=== PATIENT | female | born 1950 | race Caucasian/White ===

== ENCOUNTER → 2018-01-10 | Day surgery (SDC) | payer OTHER ==
[2018-01-07 10:18] VITALS: Ht 167.6 cm; Wt 68.2 kg
[~2018-01-10] VITALS: Ht 167.6 cm; Wt 68.2 kg
[~2018-01-10] MED LIST: 500ML BSS 0.3ML EPI 1:1000PF IRRIG ONE; ACETAMINOPHEN 325 MG TAB PO PRN; AMVISC PLUS 0.8ML SYRINGE INT OCU ONE; ASPI81TA28 PO; ATROPINE SULFATE 0.1 MG/ML 5ML SYR IV PRN; BRIMONIDINE TART 0.2% OP SOLN PER DROP CHARGE ONE; BSS FLUSH ONE; CALC500C70 PO; ENDOCOAT 0.85ML SYRINGE INT OCU ONE; EpHEDrine SULFATE INJ 50 MG/ML AMP IV PRN; EpINEphrine INJ 1MG/ML AMP 1 MG/ML AMP ONE; FENTANYL CITRATE INJ 50 MCG/1 ML 2 ML VIAL ONE; LACTATED RINGER'S 1000ML 500 ML IV SCH; LIDOCAINE 4% OP SOLN DROP CHARGE ONE; LIDOCAINE 4% OP SOLN DROP CHARGE OPL SCH; LIDOCAINE HCL 1% MPF 2 ML VIAL ONE; LISI-788 PO; MIDAZOLAM HCL 1 MG/ML 2ML VIAL ONE; MOXIFLOXACIN OPH SOLN PER DROP CHARGE ONE; POVIDONE-IODINE OP SOLN 30 ML BTL ONE; PROPARACAINE 0.5% OP SOLN PER DROP CHARGE OPL SCH; SIMV40TA2 PO; TOBRAMYCIN/DEXAMETHASONE OPH OINT PER APPLN CHARGE ONE
[2018-01-10] MEDS: PHENYLEPHRINE HCL 2.5% OP SOLN PER DROP CHARGE OPL SCH ×2 (11:18→11:24)
[2018-01-10] MEDS: TROPICAMIDE 1% OP SOLN PER DROP CHARGE OPL SCH ×2 (11:19→11:24)
[2018-01-10] MEDS: CYCLOPENTOLATE HCL 1% OP SOLN PER DROP CHARGE OPL SCH ×2 (11:20→11:26)
[2018-01-10] MEDS: KETOROLAC 0.5% OP SOLN PER DROP CHARGE OPL SCH ×2 (11:21→11:27)
[2018-01-10] MEDS: MOXIFLOXACIN OPH SOLN PER DROP CHARGE OPL SCH ×2 (11:22→11:32)
--- NOTE | 2018-01-10 12:12 | History & Physical Bridge - [place] ---
H&P Re-Evaluation Bridge Note: I have examined the patient, reviewed the History & Physical and in the interval since the performance of the History & Physical I have noted the following changes of clinical significance: No changes noted
--- NOTE | 2018-01-10 13:01 | [facility] Operative Report ---
Operative Report Operative Date Jan 10, 2018. Pre-Operative Diagnosis Left Eye Cataract Post-Operative Diagnosis same Procedure(s) Performed Left Cataract Phacoemulsification With Intraocular Lens Implant Surgeon Dr. Pancho Wheeler Human Resources Support Specialist Surgeon(s) 0 Estimated Blood Loss 0 Findings cataract left eye Specimens none Drains None Anesthesia Type MAC Complication(s) none Disposition no Recovery Room / PACU Indications decreased vision left eye Description of Procedure After informed consent was obtained in the holding area the patient was wheeled back to the operating room where cardiac monitoring leads and oxygen by nasal cannula was administered by Anesthesia. Gentle IV sedation was given, and the patient's left eye was prepped and draped in usual sterile fashion. A wire lid speculum was placed into the left eye and the operating microscope was swung into position. Using 0.12 forceps and a Supersharp blade a paracentesis port was made 2 o'clock hours away from the 3 o'clock position of the patient's left eye. 1% non-preserved Lidocaine was then injected into the anterior chamber for anesthesia. A 2.0 mm keratotome blade was then used to make a shelved clear corneal incision at the 3 o'clock position of the left eye. Amvisc was injected into the anterior chamber and a cystotome and Utrata forceps were used to perform a curvilinear capsulorrhexis. BSS on a hydrodissection cannula was used to hydrodissect the lens nucleus away from the capsular bag. The phacoemulsification handpiece was then used in a stop and chop fashion to remove the lens nucleus. The irrigation and aspiration handpiece was then used to remove the residual cortical material. Amvisc was injected into the capsular bag and anterior chamber and a B[employer]ch [employer] Lomb MX60E 26.0 Diopter intraocular lens was injected into the capsular bag. Irrigation and aspiration handpiece was used to remove the residual viscoelastic material. The wounds were hydrated and noted to be watertight. The wire lid speculum was removed from the eye. Vigamox, Brimonidine, and TobraDex ointment were placed on the eye and it was shielded. It should be noted that EndoCoat was used extensively during the case to protect the cornea endothelium. DISPOSITION: The patient tolerated the procedure well and was wheeled to the post anesthesia care unit in stable condition. I attest to the content of the Intraoperative Record and any orders documented therein. Any exceptions are noted below. I attest to the content of the Intraoperative Record and any orders documented therein. Any exceptions are noted below.
--- NOTE | 2018-01-10 13:03 | Discharge Instructions-SurgCtr ---
Discharge Instructions Date of Service Jan 10, 2018. Visit Reason for Visit: Cataract Left Eye Discharge Discharge Diagnosis / Problem: cataract left eye Discharge Goals Goal(s): Improve function Activity Recommendations Activity Limitations: per Instructions/Follow-up section Lifting Limitations: no more than 5 pounds Anesthesia . Post Anesthesia Instructions: If you have had General Anesthesia or IV Sedation: * Do not drive today. * Resume driving when surgeon permits. * Do not make important decisions or sign legal documents today. * Call surgeon for: 1. Temperature elevations greater than 101 degrees F. 2. Uncontrollable pain. 3. Excessive bleeding. 4. Persistent nausea and vomiting. 5. Medication intolerance (nausea, vomiting or rash). * For nausea and vomiting use only clear liquids such as: tea, soda, bouillon until nausea subsides, then gradually increase diet as tolerated. * If you have any concerns or questions, call your surgeon's office. If physician is unavailable and it is an emergency, call 911 or go to the nearest emergency room. . Instructions / Follow-Up Instructions / Follow-Up ACTIVITY RECOMMENDATIONS: * Light activities * You may walk outside, read, watch television. * Mild irritation and blurred vision are common for the first few days, redness around the white part of the eye is common. MEDICATIONS: Resume previous medications unless instructed otherwise by your surgeon. Eye drops (today and tomorrow): Ofloxacin - one drop in operative eye every 2 hours while awake Prednisolone 1% - one drop in operative eye every 2 hours while awake Bromfenac - one drop in operative eye once daily SPECIAL CARE INSTRUCTIONS: * If any problems or concerns, please call Dr. Wheeler's office at . * Keep plastic shield taped over eye to sleep at night. * Keep plastic shield taped over eye except to administer eye drops. * Keep plastic shield on until office visit the following day. FOLLOW UP VISIT: Follow-up with Dr. Wheeler in the [place] office as scheduled. If not already scheduled, please call the office at . Diet Recommendations Home Diet: resume previous diet Procedures Procedures Performed: Left Cataract Phacoemulsification With Intraocular Lens Implant Pending Studies Studies pending at discharge: no Medical Emergencies . Who to Call and When: Medical Emergencies: If at any time you feel your situation is an emergency, please call 911 immediately. . Non-Emergent Contact Non-Emergency issues call your: Medical Office Technologist . . "Provider Documentation" section prepared by Blane Wheeler. .
[2018-01-10 13:22] VITALS: BP 97/64; PULSE 85; O2SAT 94
--- NOTE | 2018-01-10 13:27 | Anesthesia Progress Nt - [facility] ---
Anesthesia Post Op Note Date & Time Jan 10, 2018 at 13:27 Vital Signs Pain Intensity: 0 Vital Signs Past 12 Hours Date Time Temp Pulse Resp B/P (MAP) Pulse Ox O2 Delivery O2 Flow Rate FiO2 01/10/18 13:22 85 18 97/64 (75) 94 Room Air 01/10/18 13:04 36.9 80 16 125/78 (94) 98 Room Air 01/10/18 11:14 36.4 87 18 145/86 (105) 100 Room Air Notes Mental Status: alert / awake / arousable, participated in evaluation Pt Amnestic to Procedure: Yes Nausea / Vomiting: adequately controlled Pain: adequately controlled Airway Patency, RR, SpO2: stable & adequate BP & HR: stable & adequate Hydration State: stable & adequate Anesthetic Complications: no major complications apparent Patient feels well on discharge with no complaints. Denies any lightheaded or dizziness.
== END | disposition home or self-care (01) ==
LOC: X.SURG 11:05
PROVIDERS: ATTEND Ophthalmology
DX: H25.12 Age-related nuclear cataract, left eye (principal); I10 Essential (primary) hypertension; E78.00 Pure hypercholesterolemia, unspecified; Z79.82 Long term (current) use of aspirin; E78.5 Hyperlipidemia, unspecified; Z87.891 Personal history of nicotine dependence

== ENCOUNTER 2024-03-17 07:41 | Inpatient (IN) ==
--- NOTE | 2024-03-10 12:08 | Anesthesiology Consultation ---
Date of Service March 10, 2024 Assessment & Plan (1) Encounter for pre-operative examination: Plan - acceptable to proceed pending anesthesiologist evaluation of patient and repeat BMP am DOS. - hyponatremia 03/07/24 at 129. Case discussed with Dr. Samayoa who advised repeating BMP DOS. Fluid orders to anesthesiologist review of BMP DOS. - 3+ alcoholic drinks daily. - ER 03/07/24 [facility], [place]: "...vaginal bleeding. The patient denies having any dysuria or frequency. She denies having any back pain - Per yardmaster on 03/10/24: COVID positive 02/28/24, asymptomatic per PAT RN call. Chart Review Chart Review: Acceptable Risk for Surgery and Patient NOT seen in Pre Admission Testing History Surgery Operation Date: 03/17/24 09:15 Proposed Procedures p Hysteroscopy, - Addison Montes De Oca MD s Dilation of the Cervix and Curettage with Possible Removal of Polyp or Lesion. (Placement of a Scope and Scraping of Tissue) - Addison Montes De Oca MD Height/Weight Height: 5 ft 5 in Weight: 60.328 kg Allergies Allergy/AdvReac Type Severity Reaction Status Date / Time No Known Allergies Allergy Verified 03/10/24 11:12 Medications Home Medications Medication Instructions Recorded Confirmed Last Taken lisinopril 20 1 tab PO QPM #0 tabs 03/11/17 03/10/24 11/08/22 mg-hydrochlorothiazide 25 mg tablet simvastatin 40 mg tablet 40 mg PO QPM #0 tabs 03/11/17 03/10/24 11/08/22 ibuprofen 400 mg tablet 400 mg PO Q8H PRN Pain 02/22/24 03/10/24 Unknown gabapentin 100 mg capsule 10 mg PO UD 03/10/24 03/10/24 Unknown Past Medical History Medical History Degenerative joint disease (DJD) of lumbar spine History of COVID-19 02/28/24, asymptomatic>resolved History of pneumonia 2016, no recent issues Hx of breast cancer dx 2017, right breast mastectomy>no limb restriction Hx of recurrent urinary tract infection most recent 02/28/24, no further symptoms Hyperlipidemia Hypertension Lumbosacral spondylosis Lumbosacral spondylosis Postural dizziness hx, found to have a recent UTI 02/28/24; no current symptoms Sacroiliitis Scoliosis of lumbar region due to degenerative disease of spine in adult Spondylolisthesis, lumbar region Past Surgical History Surgical History History of bilateral tubal ligation Hx of colonoscopy Hx of eye surgery age 4 Hx of right mastectomy no limb restriction Hx of tonsillectomy Social History Smoking Status: Former smoker Do You Dip or Chew Tobacco: No Smoking End Date: age 38 Hx Alcohol Use: Yes Alcohol type: wine alcohol intake frequency: 3 or more drinks per day Hx Substance Use: Yes substance use type: former substance user and marijuana Last Used Substance Other:: in college Lab Results Anesthesia Preop Results Results Anesthesia Widget: WBC 6.51 K/ul (4.8-10.8) 03/07/24 Hgb 12.5 g/dl (12.0-16.0) 03/07/24 Hct 34.5 % (37.0-47.0) L 03/07/24 Plt 155 K/uL (130-400) 03/07/24 Na 129 mmol/L (136-145) L 03/07/24 K 3.5 mmol/L (3.5-5.1) 03/07/24 Cl 94 mmol/L (98-107) L 03/07/24 CO2 27 mmol/L (21-32) 03/07/24 BUN 9 mg/dl (6-23) 03/07/24 Creat 0.53 mg/dl (0.6-1.2) L 03/07/24 Glucose Level 119 mg/dl (70-99(Fasting)) H 03/07/24 PT 11.9 Seconds (9.0-12.0) 03/07/24 PTT 28 Seconds (21-31) 03/07/24 INR 1.1 (0.9-1.1) 03/07/24 Urine Color Yellow 02/28/24 Urine Appearance Clear (Clear) 02/28/24 Urine pH 5.5 (4.5-7.5) 02/28/24 Urine Specific [place] 1.016 (1.000-1.030) 02/28/24 Urine Protein Negative (Negative) 02/28/24 Urine Glucose (UA) Negative (Negative) 02/28/24 Urine Ketones Trace (Negative) H 02/28/24 Urine Blood Trace (Negative) H 02/28/24 Urine Nitrite Negative (Negative) 02/28/24 Urine Bilirubin Negative (Negative) 02/28/24 Urine Urobilinogen Negative (Negative) 02/28/24 Urine Leukocyte Esterase 2+ (Negative) H 02/28/24 Urine WBC (Auto) 21-50 /hpf (0-5) H 02/28/24 Urine RBC (Auto) 6-10 /hpf (0-2) H 02/28/24 Urine Hyaline Casts (Auto) 0-2 /lpf (0-2) 02/28/24 Urine Epithelial Cells (Auto) 6-10 /hpf (0-2) H 02/28/24 Urine Bacteria (Auto) 2+ (None Seen) H 02/28/24 Urine Yeast Present (None Prsent) A 02/28/24 COVID-19 PCR POSITIVE (Negative) A 02/28/24 Testing Electrocardiogram Date: 02/28/24 NSR, rate 86 bpm Chest X-Ray Date: 02/28/24 *1view* No acute cardiopulmonary findings. Numerous old, healed right-sided rib fractures.
[~2024-03-17 07:41] MED LIST changes: -500ML BSS 0.3ML EPI 1:1000PF IRRIG ONE; -ACETAMINOPHEN 325 MG TAB PO PRN; -AMVISC PLUS 0.8ML SYRINGE INT OCU ONE; -ASPI81TA28 PO; -ATROPINE SULFATE 0.1 MG/ML 5ML SYR IV PRN; -BRIMONIDINE TART 0.2% OP SOLN PER DROP CHARGE ONE; -BSS FLUSH ONE; -CALC500C70 PO; +DEXAMETHASONE SOD INJ 4 MG/ML VIAL ONE; -ENDOCOAT 0.85ML SYRINGE INT OCU ONE; -EpHEDrine SULFATE INJ 50 MG/ML AMP IV PRN; -EpINEphrine INJ 1MG/ML AMP 1 MG/ML AMP ONE; -FENTANYL CITRATE INJ 50 MCG/1 ML 2 ML VIAL ONE; -LACTATED RINGER'S 1000ML 500 ML IV SCH; +LIDOCAINE 2% 2 ML VIAL/AMP(20MG/ML) INFIL ONE; -LIDOCAINE 4% OP SOLN DROP CHARGE ONE; -LIDOCAINE 4% OP SOLN DROP CHARGE OPL SCH; -LIDOCAINE HCL 1% MPF 2 ML VIAL ONE; -LISI-788 PO; -MOXIFLOXACIN OPH SOLN PER DROP CHARGE ONE; +ONDANSETRON INJ 2 MG/ML 2 ML VIAL ONE; -POVIDONE-IODINE OP SOLN 30 ML BTL ONE; -PROPARACAINE 0.5% OP SOLN PER DROP CHARGE OPL SCH; +PROPOFOL IV EMULSION 10 MG/ML 20 ML VIAL IV ONE; -SIMV40TA2 PO; -TOBRAMYCIN/DEXAMETHASONE OPH OINT PER APPLN CHARGE ONE; +fentaNYL citrate PF 100 MCG/2 ML VIAL ONE
[2024-03-17 08:16] LABS: Hematocrit (blood only) 18.9 % (37.0-47.0); Hemoglobin 6.6 g/dl (12.0-16.0); Mean Corpuscular Hemoglobin 34.7 pg (25.0-34.0); Mean Corpuscular Hgb Conc 34.9 g/dL (32.0-36.0); Mean Corpuscular Volume 99.5 fL (80.0-100.0); Mean Platelet Volume 8.7 fL (9.4-12.4); Platelet Count 221 K/uL (130-400); RDW Coefficient of Variation 14.3 % (11.5-14.5); RDW Standard Deviation 50.5 fL (36.4-46.3); White Blood Count 10.72 K/ul (4.8-10.8)
[2024-03-17] MEDS: LACTATED RINGER'S 1,000 ML IV SCH (08:20)
[2024-03-17 08:33] LABS: BUN Creatinine Ratio 22.5 (10-20); Calcium 7.7 mg/dl (8.6-10.3); Creatinine Clr Calc Pharmacy 49.1 ml/min; Potassium 3.2 mmol/L (3.5-5.1)
[2024-03-17] MEDS: SODIUM CHLORIDE 0.9% 250 ML IV PRN (10:00)
[2024-03-17] MEDS: SODIUM CHLORIDE 0.9% 500 ML IV ONE (11:38)
--- NOTE | 2024-03-17 12:15 | Hospitalist Progress Note ---
Date of Service March 17, 2024 Subjective Attending Addendum: Case reviewed with the advanced practitioner. I have personally performed a history and physical examination on the patient. I have reviewed the advanced practitioner's documentation on the date of service referenced in note, and I agree with, and take responsibility for the plan of care. please refer to her notes for full details patient seen and examined, records reviewed by myself as well on exam, patient seen resting in bed, comfortable not in distress, smiling denies active chest pain, shortness of breath, palpitations, dizziness per RN, noted to have a soaked pad earlier no other symptoms VS noted and reviewed oriented x3, not in distress, speaks in sentences with no effort nor accessory muscle use normal rate, regular rhythm, no murmurs clear breath sounds bilaterally non distended, soft, nontender no bipedal edema, erythema, warmth no neuro deficits all labs, imaging noted and reviewed ASSESSMENT AND PLAN ACUTE BLOOD LOSS ANEMIA SECONDARY TO DYSFUNCTIONAL UTERINE BLEEDING, SECONDARY TO ENDOMETRIAL HYPERPLASIA elective hysteroscopy with polypectomy/myomectomy cancelled today due to low Hg and Na seen on pre op labs Hg 12 --> 6.6 discussed with end stapler Dr. Montes De Oca started on Norethindrone 2 days ago, bleeding although still ongoing, seems to have slowed down since as per Dr. Montes De Oca plan is to stabilize Hg and Na prior to hysteroscopy with polypectomy/myomectomy now scheduled from Wednesday hopeful that further doses of Norethindrone will continue to juma the vaginal bleeding as per Dr. Montes De Oca transfuse pRBC for goal Hg > 7 (no CAD history) anemia panel ACUTE HYPONATREMIA likely hypovolemic etiology from acute blood loss check serum osm, urine Na and Osm NSS bolus and maintenance fluids ordered hold Lisinopril/HCTZ Nephro consulted other diagnoses and plan of care as per advanced practitioner's notes Donovan Gilliland MD Results & Data Results & Data Vital Signs (Past 12 Hours) Vital Signs Temp Pulse Pulse Resp BP BP Pulse Ox 03/17/24 12:02 36.8 C 92 H 20 101/47 L 98 03/17/24 12:01 36.8 C 92 H 20 101/47 L 98 03/17/24 11:47 37 C 94 H 20 106/48 L 97 03/17/24 11:44 37 C 94 H 20 106/48 L 97 03/17/24 11:41 37 C 94 H 20 106/48 L 97 03/17/24 11:18 36.9 C 95 H 20 102/45 L 97 03/17/24 10:18 36 C L 95 H 20 113/51 L 96 03/17/24 10:18 36 C L 95 H 20 113/51 L 96 03/17/24 09:45 36.8 C 94 H 16 114/50 L 98 03/17/24 07:58 36.4 C L 99 H 20 107/56 L 94 O2 Del Method 03/17/24 12:02 03/17/24 12:01 03/17/24 11:47 03/17/24 11:44 03/17/24 11:41 03/17/24 11:18 03/17/24 10:18 03/17/24 10:18 03/17/24 09:45 03/17/24 07:58 Room Air
--- NOTE | 2024-03-17 12:42 | History & Physical Report ---
Date of Service March 17, 2024 Assessment & Plan (1) Abnormal vaginal bleeding: (2) Acute hyponatremia: (3) Hypertension: Plan Assessment and plan: Acute blood loss anemia: Suspected endometrial neoplasm: Hemoglobin 1 week ago 12.4, now 6.6 Patient reports saturating 3 thick pads daily. Reports estrogen therapy did help slow the bleeding S/p 2 units PRBC, continue IV fluids Serial H/H Hyponatremia likely hypovolemic: NA 119, was 129 on 03/07 Denies any recent nausea/vomiting/diarrhea, reports adequate oral intake Suspect hyponatremia likely secondary to hypovolemia Serial BMP, every 6, monitor closely to ensure sodium is not corrected rapidly Urine/serum Osmo/electrolytes ordered, nephrology consulted Hx HTN/HLD: -Hold lisinopril, DC HCTZ indefinitely Continue statin Hx lower back pain: Continue gabapentin Alcohol use: Reports drinking 4 glasses of wine daily, monitor for alcohol withdrawal A total of 60 minutes was spent on chart review/facilitating plan of care/discussion with consultants/reviewing medical history Patient is a DNR/DNI DVT prophylaxis: SCDs, avoid AC with anemia History of Present Illness Chief Complaint: Vaginal bleeding, postmenopausal Primary Care Provider: Kenny Pacheco DO The patient is a 73-year-old female with a past medical history of hypertension/hyperlipidemia, lower back pain who presents to the hospital on 03/17/2024 for a scheduled D&C hysteroscopy with polypectomy/myomectomy with Dr. Montes De Oca. The patient presented originally on 03/07/2024 with complaints of 1 week of very heavy bleeding. Her transvaginal ultrasound at that time showed a markedly thickened and heterogeneous endometrium with numerous cystic foci. Possible endometrial hyperplasia. At this time, endometrial biopsy was recommended to exclude underlying neoplastic process. The patient was seen by gynecology on 03/14/2024 where it was recommended for the procedure to be performed on 01/04 and a progesterone taper was prescribed to minimize bleeding while awaiting the procedure. On arrival to the hospital today, labs were remarkable for hemoglobin 6.6, hematocrit 18.9, NA 119, K3.2, chloride 88, calcium 7.7 The patient remained hemodynamically stable. She was ordered 2 units of blood and referred to hospital medicine for admission for management of hyponatremia and acute blood loss anemia Allergies Allergy/AdvReac Type Severity Reaction Status Date / Time No Known Allergies Allergy Verified 03/17/24 07:55 Home Medications Medication Instructions Recorded Confirmed Type lisinopril 20 1 tab PO QPM #0 tabs 03/11/17 03/17/24 History mg-hydrochlorothiazide 25 mg tablet simvastatin 40 mg tablet 40 mg PO QPM #0 tabs 03/11/17 03/17/24 History ibuprofen 400 mg tablet 400 mg PO Q8H PRN Pain 02/22/24 03/17/24 History norethindrone acetate 5 mg tablet 5 mg PO .COMPLEX #10 tabs 03/14/24 03/14/24 Rx gabapentin 300 mg capsule 300 mg PO HS #30 caps 03/15/24 Rx Past Med/Surg History Problem List Encounter for pre-operative examination Acute hyponatremia (Acute) 03/07/24 Abnormal vaginal bleeding (Acute) Spondylolisthesis, lumbar region Lumbosacral spondylosis Degenerative joint disease (DJD) of lumbar spine Scoliosis of lumbar region due to degenerative disease of spine in adult COVID-19 (Acute) 02/28/24 Sacroiliitis Pneumonia (Acute) 04/21/16 Cancer of central portion of right female breast (Acute) "Palpable mass found on physical examination Status post mammography and ultrasound Status post core needle biopsy 09/17/2016 Invasive carcinoma Estrogen receptor negative, progesterone receptor negative and HER-2/agustin negative. 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 ypT1c ypN0 M0 G3 " Hypertension (Chronic) Medical History Spondylolisthesis, lumbar region Scoliosis of lumbar region due to degenerative disease of spine in adult Sacroiliitis Postural dizziness hx, found to have a recent UTI 02/28/24; no current symptoms History of pneumonia 2016, no recent issues Lumbosacral spondylosis Degenerative joint disease (DJD) of lumbar spine Hx of recurrent urinary tract infection most recent 02/28/24, no further symptoms Lumbosacral spondylosis History of COVID-19 02/28/24, asymptomatic>resolved Hx of breast cancer dx 2017, right breast mastectomy>no limb restriction Hypertension Hyperlipidemia Surgical History History of bilateral tubal ligation Hx of colonoscopy Hx of eye surgery age 4 Hx of tonsillectomy Hx of right mastectomy no limb restriction Family History Family/Other Breast cancer Herself Mother Myocardial infarction Denies family history of Ovarian cancer Colorectal cancer Social History Smoking Status: Former smoker Tobacco Type: Cigarettes Second Hand Exposure: No; Do You Dip or Chew Tobacco: No; Hx Alcohol Use: Yes Alcohol type: wine Hx Substance Use: No Preferred Language: Lithuanian Communication Ability: Effective Senior Cost Accountant Required: Voice Beliefs That Will Affect Care: None Current Living Situation: Family Current Living Situation Comment: lives with sister Feels Safe at Home: Yes Assistive Devices: Cane Review of Systems Review of Systems: All systems reviewed & are unremarkable except as noted in HPI & below Physical Exam Constitutional: WD/WN, vitals as above well developed and well nourished Eyes: PERRL, conjunctivae normal, anicteric sclerae ENMT: external ear and nose normal, oropharynx normal Neck: trachea midline, no thyromegaly Respiratory: normal respiratory effort, lungs clear to auscultation Cardiovascular: RRR, no murmur, no edema Chest (Breasts): normal inspection/palpation of breasts Gastrointestinal (Abdomen): normal bowel sounds, soft, nontender, no hepatosplenomegaly Musculoskeletal: no cyanosis or clubbing, extremities motor strength 5/5 Skin: no rashes, warm and dry Neurologic: PERRL, EOMI, accommodation nl, no face palsy, no dysarthria Psychiatric: A+Ox3, euthymic affect Genitourinary: no vaginal lesions, no adnexal mass (Vaginal bleeding) Lymphatic: no cervical or axillary lymphadenopathy Results & Data Results & Data Vital Signs (Past 12 Hours) Vital Signs Temp Pulse Pulse Resp BP BP Pulse Ox 03/17/24 12:02 36.8 C 92 H 20 101/47 L 98 03/17/24 12:01 36.8 C 92 H 20 101/47 L 98 03/17/24 11:47 37 C 94 H 20 106/48 L 97 03/17/24 11:44 37 C 94 H 20 106/48 L 97 03/17/24 11:41 37 C 94 H 20 106/48 L 97 03/17/24 11:18 36.9 C 95 H 20 102/45 L 97 03/17/24 10:18 36 C L 95 H 20 113/51 L 96 03/17/24 10:18 36 C L 95 H 20 113/51 L 96 03/17/24 09:45 36.8 C 94 H 16 114/50 L 98 03/17/24 07:58 36.4 C L 99 H 20 107/56 L 94 O2 Del Method 03/17/24 12:02 03/17/24 12:01 03/17/24 11:47 03/17/24 11:44 03/17/24 11:41 03/17/24 11:18 03/17/24 10:18 03/17/24 10:18 03/17/24 09:45 03/17/24 07:58 Room Air
[2024-03-17] MEDS: POTASSIUM CHLORIDE / WTR 10 MEQ/100 ML PLCT IV SCH (13:19)
[2024-03-17] MEDS: SODIUM CHLORIDE 0.9% 500 ML IV SCH (13:21)
[2024-03-17] MEDS ORDERED: LORazepam 1 MG TAB PO PRN (13:59)
--- NOTE | 2024-03-17 14:30 | Nephrology Consultation ---
Date of Consultation March 17, 2024 Assessment & Plan (1) Acute hyponatremia: she has been on hydrochlorothiazide for many years. Although most of the time her serum sodium was within normal range there were many instances when it was somewhat low for many years. last few blood work as an outpatient has shown some drop in the serum sodium with the most recent from March 07 showing 129. hydrochlorothiazide has to be stopped and never used again. She should not be on other thiazide type diuretics. But she can be on loop diuretics if needed and sometime we absolutely need to use loop diuretics to get the sodium up. urine sodium and urine osmolarity will be significantly impaired by the hydrochlorothiazide but can still be of some value and will do urine osmolarity and urine sodium. there is 1 blood work pending at this time. This will give us an idea about how fast the sodium is correcting. will be addressing after the result of this blood test our aim is to correct about 8 mEq per day and no more than 18 mEq in 48 hours. for the initial management I would give normal saline 1000 mL and then 80 mL/hour. we also need to give blood transfusion. Volume deficit from severe bleeding can be a powerful trigger of anti-diuretic hormone release and can cause hyponatremia in susceptible patient. she is getting 2 units of blood transfusion which should help with volume management. next renal panel at 7 PM--RN to call me with results. (2) Abnormal vaginal bleeding: severe type which led to the drop of hemoglobin from 12+ to 6.6. Also associated with volume deficit History of Present Illness Reason for Consultation: Hyponatremia Attending Physician: Donovan Gilliland MD History of Present Illness 73-year-old female with known prior history of hyponatremia although mild type who was on lisinopril /hydrochlorothiazide. serum sodium has been in the low 130s occasionally for last couple of years. Most recent outpatient blood work showed sodium of 129 as of March 07. She was supposed to have elective gynecological procedure today for vaginal bleeding (hysteroscopy with polypectomy/myomectomy ) cancelled today due to low Hg and low Na seen on pre op labs. Hg 12 --> 6.6. na 119 from 129 She was ordered 2 units of blood and referred to hospital medicine for admission for management of hyponatremia and acute blood loss anemia. now getting NS. blood pressure as of now but still acceptable with a reading of 117 x 56. she is oxygenating 100% on room air. she was on lisinopril 20/hydrochlorothiazide 25 as an outpatient. her food intake was Average her liquid intake was Average review of systems positive for vaginal bleeding which has been ongoing. weakness and fatigue. otherwise 12 systems reviewed and negative Allergies Allergy/AdvReac Type Severity Reaction Status Date / Time No Known Allergies Allergy Verified 03/17/24 07:55 Home Medications Medication Instructions Recorded Confirmed Type lisinopril 20 1 tab PO QPM #0 tabs 03/11/17 03/17/24 History mg-hydrochlorothiazide 25 mg tablet simvastatin 40 mg tablet 40 mg PO QPM #0 tabs 03/11/17 03/17/24 History ibuprofen 400 mg tablet 400 mg PO Q8H PRN Pain 02/22/24 03/17/24 History norethindrone acetate 5 mg tablet 5 mg PO .COMPLEX #10 tabs 03/14/24 03/14/24 Rx gabapentin 300 mg capsule 300 mg PO HS #30 caps 03/15/24 Rx Patient History Medical History Spondylolisthesis, lumbar region Scoliosis of lumbar region due to degenerative disease of spine in adult Sacroiliitis Postural dizziness hx, found to have a recent UTI 02/28/24; no current symptoms History of pneumonia 2016, no recent issues Lumbosacral spondylosis Degenerative joint disease (DJD) of lumbar spine Hx of recurrent urinary tract infection most recent 02/28/24, no further symptoms Lumbosacral spondylosis History of COVID-19 02/28/24, asymptomatic>resolved Hx of breast cancer dx 2017, right breast mastectomy>no limb restriction Hypertension Hyperlipidemia Surgical History History of bilateral tubal ligation Hx of colonoscopy Hx of eye surgery age 4 Hx of tonsillectomy Hx of right mastectomy no limb restriction Family History Family/Other Breast cancer Herself Mother Myocardial infarction Denies family history of Ovarian cancer Colorectal cancer Social History Smoking Status: Former smoker Tobacco Type: Cigarettes Second Hand Exposure: No; Do You Dip or Chew Tobacco: No; Hx Alcohol Use: Yes Alcohol type: wine Hx Substance Use: No Preferred Language: Divehi Communication Ability: Effective Agronomy Advisor Required: Voice Beliefs That Will Affect Care: None Current Living Situation: Family Current Living Situation Comment: lives with sister Feels Safe at Home: Yes Assistive Devices: Cane Results & Data Vital Signs (Past 12 Hours) Vital Signs Temp Pulse Pulse Pulse Resp BP BP 03/17/24 13:24 37.1 C 93 H 18 03/17/24 13:00 37.3 C 91 H 18 117/56 L 03/17/24 12:54 94 H 18 110/54 L 03/17/24 12:32 36.8 C 90 20 110/54 L 03/17/24 12:17 36.9 C 93 H 20 109/51 L 03/17/24 12:02 36.8 C 92 H 20 101/47 L 03/17/24 12:01 36.8 C 92 H 20 101/47 L 03/17/24 11:47 37 C 94 H 20 106/48 L 03/17/24 11:44 37 C 94 H 20 106/48 L 03/17/24 11:41 37 C 94 H 20 106/48 L 03/17/24 11:18 36.9 C 95 H 20 102/45 L 03/17/24 10:18 36 C L 95 H 20 113/51 L 03/17/24 10:18 36 C L 95 H 20 113/51 L 03/17/24 09:45 36.8 C 94 H 16 114/50 L 03/17/24 07:58 36.4 C L 99 H 20 107/56 L Pulse Ox O2 Del Method 03/17/24 13:24 100 03/17/24 13:00 100 03/17/24 12:54 99 Room Air 03/17/24 12:32 98 03/17/24 12:17 99 03/17/24 12:02 98 03/17/24 12:01 98 03/17/24 11:47 97 03/17/24 11:44 97 03/17/24 11:41 97 03/17/24 11:18 97 03/17/24 10:18 96 03/17/24 10:18 96 03/17/24 09:45 98 10/04/24 07:58 94 Room Air Laboratory Results hemoglobin has dropped to 6.6 from 12+. Sodium has dropped to 119 from 129 just a week ago.
[2024-03-17 14:52] LABS: Basophils # (auto) 0.03 K/uL (0.00-0.20); Basophils % (auto) 0.4 %; Eosinophils # (auto) 0.01 K/uL (0.00-0.50); Eosinophils % (auto) 0.1 %; Hematocrit (blood only) 23.5 % (37.0-47.0); Hematocrit (blood only) 24.3 % (37.0-47.0); Hemoglobin 8.3 g/dl (12.0-16.0); Hemoglobin 8.5 g/dl (12.0-16.0); Immature Granulocytes # (auto) 0.03 K/uL (0.01-0.20); Immature Granulocytes % (auto) 0.4 %; Lymphocytes # (auto) 1.55 K/uL (1.20-3.40); Lymphocytes % (auto) 19.5 %; Mean Corpuscular Hemoglobin 32.3 pg (25.0-34.0); Mean Corpuscular Hgb Conc 35.3 g/dL (32.0-36.0); Mean Corpuscular Volume 91.4 fL (80.0-100.0); Mean Platelet Volume 8.6 fL (9.4-12.4); Monocytes # (auto) 0.98 K/uL (0.11-0.59); Monocytes % (auto) 12.3 %; Neutrophils # (auto) 5.35 K/uL (1.40-6.50); Neutrophils % (auto) 67.3 %; Platelet Count 176 K/uL (130-400); RDW Coefficient of Variation 15.6 % (11.5-14.5); RDW Standard Deviation 51.5 fL (36.4-46.3); Red Blood Count 2.57 M/uL (4.20-5.40); White Blood Count 7.95 K/ul (4.8-10.8)
[2024-03-17 14:56] LABS: Albumin Globulin Ratio 1.2 (0.9-2); Albumin Level 2.8 gm/dl (3.4-5.0); BUN Creatinine Ratio 21.7 (10-20); Bilirubin,Total 3.2 mg/dl (0.2-1.0); Calcium 7.5 mg/dl (8.6-10.3); Creatinine Clr Calc Pharmacy 52.7 ml/min; Globulin 2.3 gm/dl (2.5-4.0); Magnesium 1.7 mg/dl (1.7-2.4); Potassium 3.7 mmol/L (3.5-5.1); Total Protein 5.1 gm/dl (6.0-8.3)
[2024-03-17 15:27] LABS: INR 1.1 (0.9-1.1); Prothrombin Time 12.2 Seconds (9.0-12.0)
[2024-03-17 17:02] LABS: Urine Potassium 34.8 mmol/L
[2024-03-17 19:35] LABS: Hematocrit (blood only) 24.5 % (37.0-47.0); Hemoglobin 8.6 g/dl (12.0-16.0)
[2024-03-17 19:48] LABS: Albumin Level 2.9 gm/dl (3.4-5.0); BUN Creatinine Ratio 21.7 (10-20); Calcium 7.5 mg/dl (8.6-10.3); Creatinine Clr Calc Pharmacy 63.4 ml/min; Phosphorus 2.4 mg/dl (2.5-4.9); Potassium 3.6 mmol/L (3.5-5.1)
[2024-03-17] MEDS: SIMVASTATIN 40 MG TAB PO SCH (20:17)
[2024-03-17] MEDS: GABAPENTIN 300 MG CAP PO SCH (20:17)
[2024-03-18 01:04] LABS: Hematocrit (blood only) 21.3 % (37.0-47.0); Hemoglobin 7.5 g/dl (12.0-16.0)
--- NOTE | 2024-03-18 08:01 | History & Physical Report ---
Date of Service March 18, 2024 Assessment & Plan (1) Post-menopausal bleeding: Plan: Ratna is a 73-year-old with postmenopausal bleeding and electrolyte abnormalities as detailed per HPI. Admitted to the medicine team for acute hyponatremia likely due to acute blood loss. Bleeding appears to have improved significantly on norethindrone 5 mg twice daily. However, this morning reporting that bleeding is a bit heavier than it was yesterday. Will increase dosing of norethindrone to 10 mg twice daily. this can be increased to 10 mg 3 times per day if bleeding were to become an issue again. Recommend she continue norethindrone until procedure is rescheduled which is planned at this point for Wednesday. Will defer remaining care to primary team. (2) Acute hyponatremia: Admission and Anticipated Discharge Date Admission Date: March 17, 2024 History of Present Illness Primary Care Provider: Kenny Pacheco DO Ratna is a 73-year-old with postmenopausal bleeding and was planned for a D&C hysteroscopy yesterday. In preop with patient noted to have acute anemia and was started on transfusion. As a result she was evaluated further and was noted to have significant electrolyte abnormalities resulting in cancellation of her procedure for repletion of electrolytes and blood transfusion. Was started on 5 mg norethindrone twice daily when I saw her in clinic earlier this week. She reports that bleeding has decreased to spotting at present. Allergies Allergy/AdvReac Type Severity Reaction Status Date / Time No Known Allergies Allergy Verified 03/17/24 07:55 Home Medications Medication Instructions Recorded Confirmed Type lisinopril 20 1 tab PO QPM #0 tabs 03/11/17 03/17/24 History mg-hydrochlorothiazide 25 mg tablet simvastatin 40 mg tablet 40 mg PO QPM #0 tabs 03/11/17 03/17/24 History ibuprofen 400 mg tablet 400 mg PO Q8H PRN Pain 02/22/24 03/17/24 History norethindrone acetate 5 mg tablet 5 mg PO .COMPLEX #10 tabs 03/14/24 03/18/24 Rx gabapentin 300 mg capsule 300 mg PO HS #30 caps 03/15/24 Rx norethindrone acetate 5 mg tablet 10 mg (2 x 5 mg) PO BID #20 tabs 03/18/24 Rx Patient History Medical History Spondylolisthesis, lumbar region Scoliosis of lumbar region due to degenerative disease of spine in adult Sacroiliitis Postural dizziness hx, found to have a recent UTI 02/28/24; no current symptoms History of pneumonia 2016, no recent issues Lumbosacral spondylosis Degenerative joint disease (DJD) of lumbar spine Hx of recurrent urinary tract infection most recent 02/28/24, no further symptoms Lumbosacral spondylosis History of COVID-19 02/28/24, asymptomatic>resolved Hx of breast cancer dx 2017, right breast mastectomy>no limb restriction Hypertension Hyperlipidemia Surgical History History of bilateral tubal ligation Hx of colonoscopy Hx of eye surgery age 4 Hx of tonsillectomy Hx of right mastectomy no limb restriction Family History Family/Other Breast cancer Herself Mother Myocardial infarction Denies family history of Ovarian cancer Colorectal cancer Social History Smoking Status: Former smoker Tobacco Type: Cigarettes Second Hand Exposure: No; Do You Dip or Chew Tobacco: No; Hx Alcohol Use: Yes Alcohol type: wine Hx Substance Use: No Preferred Language: Hungarian Communication Ability: Effective Ski Lift Mechanic Required: Voice Beliefs That Will Affect Care: None Current Living Situation: Family Current Living Situation Comment: lives with sister Feels Safe at Home: Yes Assistive Devices: Cane Physical Exam Physical Exam: Exam per medicine team Results & Data Vital Signs (Past 12 Hours) Vital Signs Temp Pulse Pulse Resp BP BP Pulse Ox 03/18/24 07:07 36.9 C 92 H 16 115/53 L 94 03/18/24 04:43 36.6 C 93 H 16 98/57 L 96 03/17/24 22:00 88 O2 Del Method 03/18/24 07:07 Room Air 03/18/24 04:43 Room Air 03/17/24 22:00 Coding Level of Care Code 99327 INT INP/OBS CARE 2/55MIN Diagnoses Post-menopausal bleeding N95.0 Acute hyponatremia E87.1
[2024-03-18 08:24] LABS: Basophils # (auto) 0.01 K/uL (0.00-0.20); Basophils % (auto) 0.2 %; Eosinophils # (auto) 0.02 K/uL (0.00-0.50); Eosinophils % (auto) 0.3 %; Hematocrit (blood only) 21.4 % (37.0-47.0); Hemoglobin 7.7 g/dl (12.0-16.0); Immature Granulocytes # (auto) 0.03 K/uL (0.01-0.20); Immature Granulocytes % (auto) 0.5 %; Lymphocytes % (auto) 22.3 %; Mean Corpuscular Volume 91.8 fL (80.0-100.0); Mean Platelet Volume 8.6 fL (9.4-12.4); Monocytes # (auto) 0.63 K/uL (0.11-0.59); Neutrophils # (auto) 4.18 K/uL (1.40-6.50); Neutrophils % (auto) 66.7 %; Platelet Count 148 K/uL (130-400); RDW Coefficient of Variation 16.9 % (11.5-14.5); RDW Standard Deviation 55.8 fL (36.4-46.3); Red Blood Count 2.33 M/uL (4.20-5.40); White Blood Count 6.27 K/ul (4.8-10.8)
[2024-03-18 08:38] LABS: Folate (Folic Acid),Ser orPlas 11.06 ng/ml (>5.38)
[2024-03-18 08:42] LABS: Polychromasia 1+
[2024-03-18] MEDS ORDERED: NORETHINDRONE 5 MG TAB PO SCH (09:00)
[2024-03-18 09:04] LABS: Albumin Globulin Ratio 1.3 (0.9-2); Albumin Level 2.6 gm/dl (3.4-5.0); BUN Creatinine Ratio 19.3 (10-20); Bilirubin,Total 2.1 mg/dl (0.2-1.0); Calcium 7.3 mg/dl (8.6-10.3); Creatinine Clr Calc Pharmacy 76.7 ml/min; Potassium 2.8 mmol/L (3.5-5.1); Total Protein 4.6 gm/dl (6.0-8.3)
[2024-03-18] MEDS: THIAMINE HCL 100 MG TAB PO SCH (09:39)
[2024-03-18] MEDS: FOLIC ACID 1 MG TAB PO SCH (09:39)
[2024-03-18] MEDS: NORETHINDRONE 5 MG TAB PO SCH (09:40)
--- NOTE | 2024-03-18 10:38 | Electrocardiogram Report ---
Test Reason : Blood Pressure : */* mmHG Vent. Rate : 86 BPM Atrial Rate : 86 BPM P-R Int : 152 ms QRS Dur : 92 ms QT Int : 400 ms P-R-T Axes : -21 28 24 degrees QTcB Int : 479 ms Normal sinus rhythm Normal ECG When compared with ECG of 28-Feb-2024 09:20, No significant change was found Confirmed by Emir Barnes ([id number]) on 03/18/2024 10:38:10 AM Referred By: Addison Montes De Oca Confirmed By: Emir Barnes
[2024-03-18] MEDS: POTASSIUM CHLORIDE CRTAB 20 MEQ TABCR PO STA (10:59)
--- NOTE | 2024-03-18 11:34 | Hospitalist Progress Note ---
Date of Service March 18, 2024 Assessment & Plan (1) Abnormal vaginal bleeding: (2) Acute hyponatremia: (3) Hypertension: Plan Patient is a 73-year-old female with past medical history significant for hypertension, hyperlipidemia and recent vaginal bleeding for which she follows with INDUSTRIAL ENGINEERING TECHNICIAN, who presented for D&C hysteroscopy the day of admission and was noted to be acutely anemic requiring transfusion as well as hyponatremic. Acute blood loss anemia Suspected endometrial neoplasm Hemoglobin 1 week ago 12.4, 6.6 on admission S/p transfusion of 2U of pRBCs on 03/18 Repeat hemoglobin up to 8 but back down in 7 range once more Anemia panel with iron level within normal limits but on the lower end, folate and B12 normal INDUSTRIAL ENGINEERING TECHNICIAN consulted, appreciate further recs -Recommends continuation of norethindrone, can increase dose and frequency as needed from 5 mg - anticipates hysteroscopy on March 22 Continue to monitor hemoglobin Hyponatremia Sodium 119 on admission, was 129 on 03/07 Denies any recent nausea/vomiting/diarrhea, reports adequate oral intake Urine/serum Osmo/electrolytes ordered Continue with IV fluids at this time q6h BMP, avoid overcorrection nephrology consulted, appreciate recs -"for the initial management I would give normal saline 1000 mL and then 80 mL/hour. -our aim is to correct about 8 mEq per day and no more than 18 mEq in 48 hours -No thiazide diuretic use in the future, can use loop if needed" Continue to monitor Hypokalemia Hypophosphatemia Replete as needed Hypertension Continue to hold home lisinopril/HCTZ Per nephrology recs above, No thiazide diuretic use in the future Continue to monitor BP Hyperlipidemia Continue statin Hx lower back pain Continue gabapentin Alcohol use: Reports drinking 4 glasses of wine daily, monitor for alcohol withdrawal AWSS at risk protocol Continue thiamine and folic acid Diet: CODE STATUS: DNR/DNI DVT prophylaxis: SCDs Dispo: PT/OT ordered for further recs Admission and Anticipated Discharge Date Admission Date: March 17, 2024 Subjective patient was seen in the AM. Seen sitting in chair at bedside. States that she is still bleeding and feeling about 3 pads an hour. Denies any associated dizziness, chest pain, palpitations, shortness of breath. Case discussed with on-call raised printer, recommended continuing norethindrone with tentative plan for surgery mid next week. Review of Systems Review of Systems: All systems reviewed & are unremarkable except as noted in Subjective Physical Exam Physical Exam: General: Alert, oriented. No acute distress Psych: Appropriate mood and affect Neuro: No gross deficits HEENT: NC/AT CV: RRR Resp: Breath sounds clear bilaterally, no increased effort of breathing. Abdomen: Soft, nontender Extremities: trace edema in lower extremities bilaterally. Results & Data Results & Data Vital Signs (Past 12 Hours) Vital Signs Temp Pulse Resp BP BP Pulse Ox O2 Del Method 03/18/24 11:14 37.0 C 102 H 18 116/52 L 99 Room Air 03/18/24 07:07 36.9 C 92 H 16 115/53 L 94 Room Air 03/18/24 04:43 36.6 C 93 H 16 98/57 L 96 Room Air
[2024-03-18] MEDS: POT PHOSPHATE MONOBASIC W/ SOD TAB PO SCH (12:28)
[2024-03-18] MEDS ORDERED: ONDANSETRON INJ 2 MG/ML 2 ML VIAL IV PRN (13:28)
[2024-03-18] MEDS ORDERED: LORazepam 2 MG/1 ML VIAL IV PRN (13:28)
[2024-03-18] MEDS ORDERED: POLYETHYLENE (MIRALAX) 17 GM PACK PO PRN (13:28)
[2024-03-18] MEDS ORDERED: ALUMINUM/MAGNESIUM/SIMETH (MAALOX MAX) 30 ML UDC PO PRN (13:28)
[2024-03-18] MEDS ORDERED: ACETAMINOPHEN 500 MG TAB PO PRN (13:28)
--- NOTE | 2024-03-18 13:28 | Nephrology Progress Note ---
Date of Service March 18, 2024 Assessment & Plan Admission and Anticipated Discharge Date Admission Date: March 17, 2024 Subjective Assessment & Plan (1) Acute hyponatremia: she has been on hydrochlorothiazide for many years. Although most of the time her serum sodium was within normal range there were many instances when it was somewhat low for many years. last few blood work as an outpatient has shown some drop in the serum sodium with the most recent from March 07 showing 129. hydrochlorothiazide has to be stopped and never used again. She should not be on other thiazide type diuretics. But she can be on loop diuretics if needed and sometime we absolutely need to use loop diuretics to get the sodium up. we also need to give blood transfusion. Volume deficit from severe bleeding can be a powerful trigger of anti-diuretic hormone release and can cause hyponatremia in susceptible patient. For today: 1 Continue NS at 60 ml/hr. 2 Low K and low Phos--agree with current Supplement. she wont need Phos Supplement intermediate though 3 maintain hgb at good level close to 8. 4 at present Na is correcting at acceptable rate --went up by 5 in 24 hrs. 5 renal panel bid. next one at 6 PM. (2) Abnormal vaginal bleeding: severe type which led to the drop of hemoglobin from 12+ to 6.6. Also associated with volume deficit. S--patient not in room. Discussed with her RN and sister at bedside. No new Issues. No SOb. making urine. Na going up nicely. Results & Data Vital Signs (Past 12 Hours) Vital Signs Temp Pulse Resp BP BP Pulse Ox O2 Del Method 03/18/24 11:14 37.0 C 102 H 18 116/52 L 99 Room Air 03/18/24 07:07 36.9 C 92 H 16 115/53 L 94 Room Air 03/18/24 04:43 36.6 C 93 H 16 98/57 L 96 Room Air
[2024-03-18] MEDS: OPTIRAY 320 100ml IV ONE (13:58)
--- NOTE | 2024-03-18 14:33 | CT Scan Report ---
CT OF THE ABDOMEN AND PELVIS WITH CONTRAST CLINICAL HISTORY: Acute blood loss anemia, f/u US. COMPARISON STUDY: CT of the abdomen and pelvis November 08, 2022. Pelvic ultrasound March 07, 2024. TECHNIQUE: Following IV administration of 94 mL of Optiray, axial images of the abdomen and pelvis we re obtained from the lung bases to the proximal femurs. Images were reviewed in the axial, sagittal, and coronal planes. IV contrast was administered without complication. Automated exposure control wa s utilized for the study. A dose lowering technique was utilized adhering to the principles of ALARA . CT DOSE: 764.36 mGy.cm FINDINGS: Right breast implant is partially imaged. No pneumatosis, free air or portal venous gas is present. There is hepatic steatosis. There is nodularity of the liver surface. No hepatic lesions are identified on venous phase exam. Gallbladder is mildly distended with moderate gallbladder wall thic kening, a nonspecific finding. Size of the spleen is normal. Retroperitoneal varices are again noted. The adrenal glands and pancreas are unremarkable. There are diverticula of the second portion the du odenum. A few high low dense right renal lesions are too small to characterize. There is no hydroneph rosis. The cecum is within the right mid abdomen. No evidence for acute appendicitis. There is no avery dence for a bowel obstruction. Colonic diverticulosis without evidence for acute diverticulitis. Ther e is no abdominal or pelvic lymphadenopathy. The uterine cavity is distended and contains intermediat e attenuation material which could reflect soft tissue or blood products. Endometrium measures approx imately 4 cm in thickness. This was shown on prior ultrasound. Several cystic lesions within the left ovary are unchanged. IMPRESSION: 1. Distended uterine cavity containing intermediate attenuation material which could reflect soft tis nichelle or blood products. Although this could represent hyperplasia, endometrial neoplasm is the diagnos is of exclusion. 2. Colonic diverticulosis. No evidence for acute diverticulitis. 3. No bowel obstruction. No bowel wall thickening. 4. Hepatic steatosis and cirrhosis. Retroperitoneal varices indicative of portal hypertension. Gallbl adder wall thickening, a nonspecific finding. ACT 112: Positive. There are findings on this exam that require communication between the performing entity and the patient following Patient Test Result Information Act ([place] Act 112) guidelines. Electronically signed by: Kingsley Moyer M.D. 03/18/2024 2:31 PM
[2024-03-18 15:17] LABS: Hematocrit (blood only) 21.6 % (37.0-47.0); Hemoglobin 7.5 g/dl (12.0-16.0)
[2024-03-18 15:41] LABS: BUN Creatinine Ratio 16.9 (10-20); Calcium 7.4 mg/dl (8.6-10.3); Creatinine Clr Calc Pharmacy 74.1 ml/min; Potassium 3.4 mmol/L (3.5-5.1)
[2024-03-18 19:34] LABS: Albumin Globulin Ratio 1.3 (0.9-2); Albumin Level 2.6 gm/dl (3.4-5.0); BUN Creatinine Ratio 16.4 (10-20); Bilirubin,Total 1.6 mg/dl (0.2-1.0); Calcium 7.2 mg/dl (8.6-10.3); Creatinine Clr Calc Pharmacy 79.5 ml/min; Phosphorus 2.2 mg/dl (2.5-4.9); Potassium 3.3 mmol/L (3.5-5.1); Total Protein 4.6 gm/dl (6.0-8.3)
[2024-03-18 19:35] LABS: BUN Creatinine Ratio 16.4 (10-20); Calcium 7.3 mg/dl (8.6-10.3); Creatinine Clr Calc Pharmacy 79.5 ml/min; Potassium 3.3 mmol/L (3.5-5.1)
[2024-03-18] MEDS: POTASSIUM CHLORIDE CRTAB 20 MEQ TABCR PO SCH (20:19)
[2024-03-19 06:21] LABS: Hematocrit (blood only) 20.7 % (37.0-47.0); Hemoglobin 6.9 g/dl (12.0-16.0); Mean Corpuscular Hemoglobin 31.8 pg (25.0-34.0); Mean Corpuscular Hgb Conc 33.3 g/dL (32.0-36.0); Mean Corpuscular Volume 95.4 fL (80.0-100.0); Mean Platelet Volume 8.6 fL (9.4-12.4); Platelet Count 137 K/uL (130-400); RDW Coefficient of Variation 16.9 % (11.5-14.5); RDW Standard Deviation 58.8 fL (36.4-46.3); Red Blood Count 2.17 M/uL (4.20-5.40); White Blood Count 5.42 K/ul (4.8-10.8)
[2024-03-19 06:22] LABS: Albumin Globulin Ratio 1.3 (0.9-2); Albumin Level 2.4 gm/dl (3.4-5.0); BUN Creatinine Ratio 16.3 (10-20); Bilirubin,Total 1.6 mg/dl (0.2-1.0); Calcium 7.2 mg/dl (8.6-10.3); Creatinine Clr Calc Pharmacy 89.3 ml/min; Globulin 1.8 gm/dl (2.5-4.0); Magnesium 1.4 mg/dl (1.7-2.4); Phosphorus 2.3 mg/dl (2.5-4.9); Potassium 3.4 mmol/L (3.5-5.1); Total Protein 4.2 gm/dl (6.0-8.3)
[2024-03-19] MEDS ORDERED: SODIUM CHLORIDE 0.9% 250 ML IV PRN ×2 (06:27→07:44)
[2024-03-19 06:38] LABS: Basophils # (auto) 0.03 K/uL (0.00-0.20); Basophils % (auto) 0.6 %; Eosinophils # (auto) 0.05 K/uL (0.00-0.50); Eosinophils % (auto) 0.9 %; Immature Granulocytes # (auto) 0.04 K/uL (0.01-0.20); Immature Granulocytes % (auto) 0.7 %; Lymphocytes # (auto) 1.51 K/uL (1.20-3.40); Lymphocytes % (auto) 27.9 %; Monocytes # (auto) 0.75 K/uL (0.11-0.59); Monocytes % (auto) 13.8 %; Neutrophils # (auto) 3.04 K/uL (1.40-6.50); Neutrophils % (auto) 56.1 %; Polychromasia 2+
[2024-03-19] MEDS: MAGNESIUM SULFATE / D5W 1 GM/100 ML BAG IV SCH (06:46)
[2024-03-19] MEDS: POTASSIUM CHLORIDE CRTAB 20 MEQ TABCR PO SCH ×2 (06:46→20:05)
--- NOTE | 2024-03-19 08:31 | Gynecologic Progress Note ---
Date of Service March 19, 2024 Assessment & Plan (1) Post-menopausal bleeding: (2) Acute hyponatremia: Plan Patient has had a minimal response to NA 10mg bid. Discussed that surgery tenatively r/s for Weds. Discussed that I did not think given what she told us that two units would be enough to replace. Agree with transfusing of another two units with a goal of 8. Patient would like to move forward with D&C jake. Again discussed the indications and r/b of surgery. Discussed that the D&C is diagnostic but likely not curative. She will probably still need the NA after the procedure. Discussed goal is to make diagnosis. She expresses understanding. She asks if she can just have a hyster and noted unless she was very emergent and needed it to save her life, would prefer to do D&C first for diagnosis. Discussed plan for D&C/hsc/removal of mass. The risks of surgery were discussed with the patient including the risks of anesthesia, bleeding requiring transfusion, infection, poor wound healing, approx. 1% risk of uterine perforation with need for further surgery, hospitalization or intervention. There is also risk of injury to other organs including bowel, bladder, vessels, nerves or ureters. The other risks of any surgery were discussed including he art attack, blood clot, stroke, or . She wishes to proceed. I will discuss and make sure that she is cleared with anesthesia. She has also just eaten so will need to wait for that. She expresses understanding. Admission and Anticipated Discharge Date Admission Date: March 17, 2024 Subjective CTSP this am because of increase in her bleeding. She notes bleeding started increasing this am. She has noted both small gushes and passing clots. I observed on of these--clot size of half dollar. She notes no increase in pain. Got two units of prbc yesterday. got up to 8.5 and trended down to 6.9 this am. She is getting two more units. The patient is asymptomatic today and note she is feeling well. She is eating breakfast when I come in the room. She was increased to 10mg bid yesterday of NA. Physical Exam Constitutional: WD/WN, vitals as above Psychiatric: A+Ox3, euthymic affect Results & Data Vital Signs (Past 12 Hours) Vital Signs Temp Pulse Pulse Pulse Resp BP BP 03/19/24 08:11 36.7 C 88 16 120/60 03/19/24 08:09 36.9 C 88 16 120/60 03/19/24 07:08 36.9 C 90 18 105/56 L 03/19/24 03:28 36.6 C 84 19 109/58 L 03/18/24 23:00 83 03/18/24 22:40 36.6 C 71 16 130/62 Pulse Ox O2 Del Method 03/19/24 08:11 100 03/19/24 08:09 100 03/19/24 07:08 100 Room Air 03/19/24 03:28 98 Room Air 03/18/24 23:00 03/18/24 22:40 94 Room Air PG Care Time/CCT Total # of Minutes Spent Total Time Spent with Patient: Total time spent is greater than 50% in coordination of care (as documented) at patient's floor/unit and/or counseling patient: Coding Level of Care Code 57690 SUB INP/OBS CARE 2/35MIN (57 - DECISION FOR SURGERY) Diagnoses Post-menopausal bleeding N95.0 Acute hyponatremia E87.1
--- NOTE | 2024-03-19 09:11 | Communication Note ---
Date of Service: March 19, [address] Quinn the anesthesia media reconciliation specialist. He notes that unless it is emergent, which it is not at this time, he would prefer to wait until her Na is at least 130. I have discussed this with the patient and noted unless a singnificant change in her bleeding (it is more than before but not to the point it was when she first saw Dr. Montes De Oca) would likely need to wait until tomorrow to do any procedures. discussed this with the patient. She expressed understanding and frustration as she would like to have done jake. I noted understanding of this but needed to look at all factors in order to take care of her safely. Wants to know if she can go home in the interim and I noted not likely, but that would be a primary care team decision, but since electrolytes not optimal, probably not. If she wants to go home, can go with the prior plan of r/s for . Discussed that she would be an add on case for wednesday and would need to discuss with those doctors. will continue to follow with the patient.
[2024-03-19] MEDS: CALCIUM GLUCONATE 1,000 MG/60 ML BAG IV SCH (09:18)
[2024-03-19] MEDS: NORETHINDRONE 5 MG TAB PO SCH (09:26)
[2024-03-19] MEDS: POT PHOSPHATE MONOBASIC W/ SOD TAB PO SCH (09:26)
[2024-03-19] MEDS: MAGNESIUM CHLORIDE W/CALCIUM 64MG DELAYED REL TAB PO SCH (09:26)
[2024-03-19] MEDS: CALCIUM CARBONATE 1,250 MG/5 ML UDC PO SCH (09:27)
--- NOTE | 2024-03-19 09:36 | Communication Note ---
Date of Service: March 19, 2024 Discussed with the patient that we have a very full OR schedule tomorrow. It would be somewhat unlikely that unless she became acutely unstable with her b leeding we would be able to do the case tomorrow. Patient notes no further gushing. Exam of her depends shows a small amount of blood. She notes that this am it "looked like a miscarriage, although I have never had one." It may be that the bleeding noted this am was after being in bed all night and collecting in the vagina. After considerable conversation, she is amendable with proceeding with the plan made with her primary physician Dr. Montes De Oca to have the procedure done on . Discussed case in detail with Dr. Alonso. I think that she needs 2 more units of blood, but Dr. Alonso is hesitant to give two because of her electrolytes and concern for fluid overload. Her vitals are very stable and have never been unstable since admission. Plan is to fix her medical electrolyte abnl and then d/c per primary team. Will f/u for surgery on as previously discussed. Again, if situation changes, would proceed with a more urgent/emergent case. Will make sure team coming on on Wednesday is aware of the situation. Also called and made Dr. Montes De Oca aware. If bleeding ok through the afternoon, can have her eat.
--- NOTE | 2024-03-19 10:41 | Anesthesiology Consultation ---
Date of Service March 19, 2024 Assessment & Plan Chart Review Chart Review: Acceptable Risk for Surgery and Patient NOT seen in Pre Admission Testing Consults Requested none ASA ASA3 Proposed Anesthesia Anesthesia Type: General History Surgery Operation Date: 03/17/24 09:15 Proposed Procedures p Hysteroscopy - Addison Montes De Oca MD s Dilation of the Cervix and Curettage with Possible Removal of Polyp or Lesion - Addison Montes De Oca MD Height/Weight Height: 5 ft 5 in Weight: 59.2 kg Allergies Allergy/AdvReac Type Severity Reaction Status Date / Time No Known Allergies Allergy Verified 03/17/24 07:55 Medications Home Medications Medication Instructions Recorded Confirmed Last Taken lisinopril 20 1 tab PO QPM #0 tabs 03/11/17 03/17/24 03/16/24 18:00 mg-hydrochlorothiazide 25 mg tablet simvastatin 40 mg tablet 40 mg PO QPM #0 tabs 03/11/17 03/17/24 03/16/24 18:00 ibuprofen 400 mg tablet 400 mg PO Q8H PRN Pain 02/22/24 03/17/24 03/16/24 13:00 norethindrone acetate 5 mg tablet 5 mg PO .COMPLEX #10 tabs 03/14/24 03/18/24 03/16/24 18:00 gabapentin 300 mg capsule 300 mg PO HS #30 caps 03/15/24 03/15/24 23:00 norethindrone acetate 5 mg tablet 10 mg (2 x 5 mg) PO BID #20 tabs 03/18/24 Unknown Active Medications Generic Name Dose Route Start Last Admin Trade Name Freq PRN Reason Stop Dose Admin Calcium Carbonate 1,250 mg 03/19/24 09:00 03/19/24 09:27 Calcium Carbonate 1,250 Mg/5 Ml Udc PO 04/18/24 08:59 1,250 mg BID JOSÉ LUIS Administration Folic Acid 1 mg 03/18/24 09:00 03/19/24 09:27 Folic Acid 1 Mg Tab PO 04/17/24 08:59 1 mg QAM JOSÉ LUIS Administration Gabapentin 300 mg 03/17/24 21:00 03/18/24 20:14 Gabapentin 300 Mg Cap PO 04/16/24 20:59 300 mg HS JOSÉ LUIS Administration Sodium Chloride 500 mls @ 60 mls/hr 03/17/24 12:45 03/19/24 02:04 Nss IV 04/16/24 12:44 60 mls/hr .Q8H20M JOSÉ LUIS Administration Magnesium Chloride 64 mg 03/19/24 09:00 03/19/24 09:26 Magnesium Chloride W/Calcium 64mg Delayed Rel Tab PO 04/18/24 08:59 64 mg BID JOSÉ LUIS Administration Norethindrone 10 mg 03/19/24 09:00 03/19/24 09:26 Norethindrone 5 Mg Tab PO 04/18/24 08:59 10 mg TID JOSÉ LUIS Administration Potassium Chloride 20 meq 03/19/24 06:30 03/19/24 09:26 Potassium Chloride Crtab 20 Meq Tabcr PO 04/18/24 06:29 20 meq BID JOSÉ LUIS Administration Potassium Phosphate 2 tab 03/19/24 09:00 03/19/24 09:26 Pot Phosphate Monobasic W/ Sod Tab PO 04/18/24 08:59 2 tab QID JOSÉ LUIS Administration Simvastatin 40 mg 03/17/24 21:00 03/18/24 20:17 Simvastatin 40 Mg Tab PO 04/16/24 20:59 40 mg QPM JOSÉ LUIS Administration Thiamine HCl 100 mg 03/18/24 09:00 03/19/24 09:26 Thiamine Hcl 100 Mg Tab PO 04/17/24 08:59 100 mg QAM JOSÉ LUIS Administration Past Medical History Medical History Spondylolisthesis, lumbar region Scoliosis of lumbar region due to degenerative disease of spine in adult Sacroiliitis Postural dizziness hx, found to have a recent UTI 02/28/24; no current symptoms History of pneumonia 2016, no recent issues Lumbosacral spondylosis Degenerative joint disease (DJD) of lumbar spine Hx of recurrent urinary tract infection most recent 02/28/24, no further symptoms Lumbosacral spondylosis History of COVID-19 02/28/24, asymptomatic>resolved Hx of breast cancer dx 2017, right breast mastectomy>no limb restriction Hypertension Hyperlipidemia anemia due to blood loss Hyponatremia hypocalcemia Exercise / Class Metabolic Activity III < 4 Walking/Shop/Light housework Past Family History Family History Family/Other Breast cancer Herself Mother Myocardial infarction Denies family history of Ovarian cancer Colorectal cancer Past Surgical History Surgical History History of bilateral tubal ligation Hx of colonoscopy Hx of eye surgery age 4 Hx of tonsillectomy Hx of right mastectomy no limb restriction Past Anesthesia History No Hx of Anesthesia Complications and No Family Hx of Anesthesia Complications History of PONV No Hx of PONV and No Hx of Motion Sickness Social History Smoking Status: Former smoker Do You Dip or Chew Tobacco: No Smoking End Date: 20 yrs ago Hx Alcohol Use: Yes Alcohol type: wine alcohol intake frequency: 3 or more drinks per day Alcohol Intake Frequency Comment: wine 4 drinks per day Hx Substance Use: No substance use type: does not use Last Used Substance Other:: in college Physical Exam Vital Signs Last Vital Signs Temp 36.6 C 03/19/24 10:12 Pulse 84 03/19/24 10:12 Resp 16 03/19/24 10:12 BP 113/57 L 03/19/24 10:12 Pulse Ox 99 03/19/24 10:12 O2 Del Method Room Air 03/19/24 07:08 Testing Laboratory Results 03/19/24 05:42 03/19/24 05:42 PT 12.2 Seconds (9.0-12.0) H 03/17/24 14:22 INR 1.1 (0.9-1.1) 03/17/24 14:22 Blood Type O Positive 03/17/24 07:54 Antibody Screen NEGATIVE 03/17/24 07:54 Electrocardiogram Date: 03/19/24 Findings: + NSR @ (@ 88;low voltage QRS) Chest X-Ray Date: 02/28/24 Findings: + NAD
--- NOTE | 2024-03-19 10:50 | Communication Note ---
Date of Service: March 19, 2024 Discussed case w/ Dr Joiner. At this time pt is stable, and want the Na and electrolytes to be corrected to the extent possible,particularly the sodium, to 130 or as close as possible, understanding that should the pt start hemorrhaging, she would have to be taken to the OR emergently.
--- NOTE | 2024-03-19 12:12 | Hospitalist Progress Note ---
Date of Service March 19, 2024 Assessment & Plan (1) Abnormal vaginal bleeding: (2) Acute hyponatremia: (3) Hypertension: Plan Patient is a 73-year-old female with past medical history significant for hypertension, hyperlipidemia and recent vaginal bleeding for which she follows with [facility] HO[facility], who presented for D&C hysteroscopy the day of admission and was noted to be acutely anemic requiring transfusion as well as hyponatremic. Acute blood loss anemia Suspected endometrial neoplasm Hemoglobin 1 week ago 12.4, 6.6 on admission S/p transfusion of 2U of pRBCs on 03/18, 1U pRBC on 03/19 Repeat hemoglobin up to 8 range Anemia panel with iron level within normal limits but on the lower end, folate and B12 normal CLAY HOISTER consulted, appreciate further recs -Recommends continuation of norethindrone, can increase dose and frequency as needed from 5 mg to 10mg TID. Pt currently on TID dosing. - anticipates hysteroscopy on March 22 Continue to monitor hemoglobin Hyponatremia Sodium 119 on admission, was 129 on 03/07 Denies any recent nausea/vomiting/diarrhea, reports adequate oral intake Urine/serum Osmo/electrolytes ordered Continue with IV fluids at this time q6h BMP, avoid overcorrection nephrology consulted, appreciate recs -"for the initial management I would give normal saline 1000 mL and then 80 mL/hour. -our aim is to correct about 8 mEq per day and no more than 18 mEq in 48 hours -No thiazide diuretic use in the future, can use loop if needed" Continue to monitor Hypokalemia Hypophosphatemia Hypomagnesemia Hypocalcemia Replete as needed Hypertension Continue to hold home lisinopril/HCTZ Per nephrology recs above, No thiazide diuretic use in the future Continue to monitor BP Hyperlipidemia Continue statin Hx lower back pain Continue gabapentin Alcohol use: Reports drinking 4 glasses of wine daily, monitor for alcohol withdrawal AWSS at risk protocol Continue thiamine and folic acid Diet: NPO at this time CODE STATUS: DNR/DNI DVT prophylaxis: SCDs Dispo: PT/OT ordered for further recs Admission and Anticipated Discharge Date Admission Date: March 17, 2024 Subjective patient was seen multiple times during the day. In the a.m. states she had gushing blood coming out of her vagina and huge clots. Also requiring transfusion of blood for hemoglobin less than 7. Patient denies any dizziness, chest pain, shortness of breath or palpitations. Case discussed multiple times with CLAY HOISTER. Patient also discussed with anesthesia. Patient to be taken to the OR only for emergent situation otherwise we will have procedure done as scheduled on Wednesday. On recheck later in the day patient notes no dizziness, chest pain, shortness of breath or palpitations. States that she is still having clots though they are smaller. Review of Systems Review of Systems: All systems reviewed & are unremarkable except as noted in Subjective Physical Exam Physical Exam: General: Alert, oriented. No acute distress Psych: Appropriate mood and affect Neuro: No gross deficits HEENT: NC/AT CV: RRR Resp: Breath sounds clear bilaterally, no increased effort of breathing. Abdomen: Soft, nontender Extremities: trace edema in lower extremities bilaterally. Results & Data Results & Data Vital Signs (Past 12 Hours) Vital Signs Temp Pulse Pulse Pulse Resp BP BP 03/19/24 11:22 36.8 C 86 18 141/63 H 03/19/24 11:12 36.8 C 86 18 141/63 H 03/19/24 10:12 36.6 C 84 16 113/57 L 03/19/24 09:12 36.5 C 86 16 106/61 03/19/24 08:42 36.6 C 91 H 16 141/70 H 03/19/24 08:27 36.6 C 96 H 18 118/57 L 03/19/24 08:11 36.7 C 88 16 120/60 03/19/24 08:09 36.9 C 88 16 120/60 03/19/24 07:08 36.9 C 90 18 105/56 L 03/19/24 03:28 36.6 C 84 19 109/58 L Pulse Ox O2 Del Method 03/19/24 11:22 100 03/19/24 11:12 100 03/19/24 10:12 99 03/19/24 09:12 100 03/19/24 08:42 98 03/19/24 08:27 100 03/19/24 08:11 100 03/19/24 08:09 100 03/19/24 07:08 100 Room Air 03/19/24 03:28 98 Room Air
[2024-03-19 12:45] LABS: Hematocrit (blood only) 24.4 % (37.0-47.0); Hemoglobin 8.5 g/dl (12.0-16.0)
--- NOTE | 2024-03-19 13:55 | Electrocardiogram Report ---
Test Reason : Blood Pressure : */* mmHG Vent. Rate : 88 BPM Atrial Rate : 88 BPM P-R Int : 158 ms QRS Dur : 94 ms QT Int : 400 ms P-R-T Axes : 33 36 17 degrees QTcB Int : 484 ms Normal sinus rhythm Low voltage QRS Borderline ECG When compared with ECG of 18-Mar-2024 05:05, No significant change was found Confirmed by Emir Barnes ([id number]) on 03/19/2024 1:55:22 PM Referred By: Addison Montes De Oca Confirmed By: Emir Barnes
[2024-03-19 14:38] LABS: Hematocrit (blood only) 25.8 % (37.0-47.0); Hemoglobin 8.8 g/dl (12.0-16.0)
[2024-03-19 14:44] LABS: Calcium 7.2 mg/dl (8.6-10.3); Potassium 3.3 mmol/L (3.5-5.1)
[2024-03-19 14:50] LABS: Creatinine Clr Calc Pharmacy 87.5 ml/min
[2024-03-19] MEDS ORDERED: POTASSIUM PHOS 3 MMOL/1 ML INFUSION IV STA (15:34)
--- NOTE | 2024-03-19 15:36 | Nephrology Progress Note ---
Date of Service March 19, 2024 Assessment & Plan Admission and Anticipated Discharge Date Admission Date: March 17, 2024 Subjective Assessment & Plan (1) Acute hyponatremia: she has been on hydrochlorothiazide for many years. Although most of the time her serum sodium was within normal range there were many instances when it was somewhat low for many years. last few blood work as an outpatient has shown some drop in the serum sodium with the most recent from March 07 showing 129. hydrochlorothiazide has to be stopped and never used again. She should not be on other thiazide type diuretics. But she can be on loop diuretics if needed and sometime we absolutely need to use loop diuretics to get the sodium up. we also need to give blood transfusion. Volume deficit from severe bleeding can be a powerful trigger of anti-diuretic hormone release and can cause hyponatremia in susceptible patient. For today: 1 Increase NS to 80 ml/hr. 2 Low K and low Phos--She is NPO so will do kphos 21 mmol instead of oral Phosphate. 3 maintain hgb at good level close to 8. 4 at present Na was correcting at acceptable rate --but since this AM did not go any higher and now 126 5 renal panel bid. next one at 6 PM. (2) Abnormal vaginal bleeding: severe type which led to the drop of hemoglobin from 12+ to 6.6. Also associated with volume deficit. S--hgb dropped again. had PRBC. Plan is surgery. Currently NPO. No SOb. making urine. Na going up steadily. exam: Awake and alert. No distress. Chest b/l clear. CVS--RRR Abd--Soft and nontender ext--no edema Results & Data Vital Signs (Past 12 Hours) Vital Signs Temp Pulse Pulse Resp BP BP Pulse Ox 03/19/24 15:32 36.6 C 82 16 108/58 L 95 03/19/24 11:22 36.8 C 86 18 141/63 H 100 03/19/24 11:12 36.8 C 86 18 141/63 H 100 03/19/24 10:12 36.6 C 84 16 113/57 L 99 03/19/24 09:12 36.5 C 86 16 106/61 100 03/19/24 08:42 36.6 C 91 H 16 141/70 H 98 03/19/24 08:27 36.6 C 96 H 18 118/57 L 100 03/19/24 08:11 36.7 C 88 16 120/60 100 03/19/24 08:09 36.9 C 88 16 120/60 100 03/19/24 07:30 87 03/19/24 07:08 36.9 C 90 18 105/56 L 100 O2 Del Method 03/19/24 15:32 Room Air 03/19/24 11:22 03/19/24 11:12 03/19/24 10:12 03/19/24 09:12 03/19/24 08:42 03/19/24 08:27 03/19/24 08:11 03/19/24 08:09 03/19/24 07:30 03/19/24 07:08 Room Air
[2024-03-19] MEDS: POTASSIUM PHOSPHATE 21 MMOL in SODIUM CHLORIDE 0.9% 500 ML IV ONE (16:47)
[2024-03-19 19:30] LABS: Hematocrit (blood only) 25.8 % (37.0-47.0); Hemoglobin 8.7 g/dl (12.0-16.0)
[2024-03-20 00:48] LABS: Hematocrit (blood only) 22.5 % (37.0-47.0); Hemoglobin 7.6 g/dl (12.0-16.0)
[2024-03-20 05:50] LABS: Basophils # (auto) 0.03 K/uL (0.00-0.20); Basophils % (auto) 0.5 %; Eosinophils # (auto) 0.07 K/uL (0.00-0.50); Eosinophils % (auto) 1.3 %; Hematocrit (blood only) 21.6 % (37.0-47.0); Hemoglobin 7.2 g/dl (12.0-16.0); Immature Granulocytes # (auto) 0.03 K/uL (0.01-0.20); Immature Granulocytes % (auto) 0.5 %; Lymphocytes # (auto) 1.71 K/uL (1.20-3.40); Lymphocytes % (auto) 30.8 %; Mean Corpuscular Hemoglobin 32.1 pg (25.0-34.0); Mean Corpuscular Hgb Conc 33.3 g/dL (32.0-36.0); Mean Corpuscular Volume 96.4 fL (80.0-100.0); Mean Platelet Volume 8.6 fL (9.4-12.4); Monocytes # (auto) 0.74 K/uL (0.11-0.59); Monocytes % (auto) 13.3 %; Neutrophils # (auto) 2.97 K/uL (1.40-6.50); Neutrophils % (auto) 53.6 %; Platelet Count 144 K/uL (130-400); RDW Coefficient of Variation 17.5 % (11.5-14.5); RDW Standard Deviation 60.7 fL (36.4-46.3); Red Blood Count 2.24 M/uL (4.20-5.40); White Blood Count 5.55 K/ul (4.8-10.8)
[2024-03-20 06:04] LABS: Albumin Globulin Ratio 1.3 (0.9-2); Albumin Level 2.3 gm/dl (3.4-5.0); BUN Creatinine Ratio 14.6 (10-20); Bilirubin,Total 1.6 mg/dl (0.2-1.0); Calcium 7.4 mg/dl (8.6-10.3); Creatinine Clr Calc Pharmacy 91.1 ml/min; Globulin 1.8 gm/dl (2.5-4.0); Magnesium 1.4 mg/dl (1.7-2.4); Phosphorus 2.9 mg/dl (2.5-4.9); Potassium 4.6 mmol/L (3.5-5.1); Total Protein 4.1 gm/dl (6.0-8.3)
[2024-03-20 06:32] LABS: Polychromasia 1+
--- NOTE | 2024-03-20 06:51 | Gynecologic Progress Note ---
Date of Service March 20, 2024 Assessment & Plan (1) Post-menopausal bleeding: Plan Although the patient is still bleeding, it is not like it was when she originally presented to Dr. Montes De Oca in the mid week. h/h noted but she is hemodynamically stable. She should continue on progestin 10 mg tid and I sent in a script to her pharmacy for this. Unless significant change in her bleeding, ie very acute and heavy, the plan will remain to do D&C with Dr. Montes De Oca on . Please call us if any significant change in her bleeding status. We anticipate bleeding will continue given her situation and small clots are ok. Bleeding precautions would include if she starts to fill a pad in less than 30 min soaking wet of passes large clots consistently. Can tolerate quarter/half- dollar size clots. d/c based on the judgement of her primary care team. If d/c, patient should call the office to speak to Raegan about probable need to be seen in the office on Wednesday. Admission and Anticipated Discharge Date Admission Date: March 17, 2024 Subjective Patient sleeping and snoring. Patient was not easily aroused. Decision made not to wake the patient. Per nursing, she voided several times last night. She did pass an egg size clot around 2am and a couple of smaller clots around 4am. No significant increase in bleeding was noted.On review of labs, after one unit yesterday her hgb went to 8.7 and this am is 7.2. Na this am is 131. Physical Exam Constitutional: WD/WN, vitals as above Psychiatric: A+Ox3, euthymic affect Results & Data Vital Signs (Past 12 Hours) Vital Signs Temp Pulse Pulse Resp BP BP Pulse Ox 03/20/24 02:15 36.9 C 91 H 18 118/50 L 97 03/19/24 23:20 36.6 C 90 16 133/66 99 03/19/24 23:00 66 03/19/24 19:01 36.6 C 102 H 18 142/63 H 99 O2 Del Method 03/20/24 02:15 Room Air 03/19/24 23:20 Room Air 03/19/24 23:00 03/19/24 19:01 Room Air PG Care Time/CCT Total # of Minutes Spent Total Time Spent with Patient: Total time spent is greater than 50% in coordination of care (as documented) at patient's floor/unit and/or counseling patient: Coding Level of Care Code 00135 SUB INP/OBS CARE Diagnoses Post-menopausal bleeding N95.0
--- NOTE | 2024-03-20 09:16 | Hospitalist Progress Note ---
Date of Service March 20, 2024 Assessment & Plan (1) Abnormal vaginal bleeding: (2) Acute hyponatremia: (3) Hypertension: Plan Patient is a 73-year-old female with past medical history significant for hypertension, hyperlipidemia and recent vaginal bleeding for which she follows with [facility], who presented for D&C hysteroscopy the day of admission and was noted to be acutely anemic requiring transfusion as well as hyponatremic. Acute blood loss anemia Suspected endometrial neoplasm Hemoglobin 1 week ago 12.4, 6.6 on admission S/p transfusion of 2U of pRBCs on 03/18, 1U pRBC on 03/19 Repeat hemoglobin up to 8 range Anemia panel with iron level within normal limits but on the lower end, folate and B12 normal [employer] consulted, appreciate further recs -Recommends continuation of norethindrone, can increase dose and frequency as needed from 5 mg to 10mg TID. Pt currently on TID dosing. - anticipates hysteroscopy on March 22 Continue to monitor hemoglobin and transfuse as needed Hyponatremia Sodium 119 on admission, was 129 on 03/07 Denies any recent nausea/vomiting/diarrhea, reports adequate oral intake Urine/serum Osmo/electrolytes ordered Continue with IV fluids at this time q6h BMP, avoid overcorrection nephrology consulted, appreciate recs -"for the initial management I would give normal saline 1000 mL and then 80 mL/hour. -our aim is to correct about 8 mEq per day and no more than 18 mEq in 48 hours -No thiazide diuretic use in the future, can use loop if needed" Continue to monitor sodium improving Hypokalemia Hypophosphatemia Hypomagnesemia Hypocalcemia Replete as needed Hypertension Continue to hold home lisinopril/HCTZ Per nephrology recs above, No thiazide diuretic use in the future Continue to monitor BP Hyperlipidemia Continue statin Hx lower back pain Continue gabapentin Alcohol use: Reports drinking 4 glasses of wine daily, monitor for alcohol withdrawal AWSS at risk protocol Continue thiamine and folic acid Diet: NPO at this time CODE STATUS: DNR/DNI DVT prophylaxis: SCDs Dispo: PT/OT ordered for further recs Admission and Anticipated Discharge Date Admission Date: March 17, 2024 Subjective patient was seen in the a.m. resting comfortably in bed. States she still having vaginal blood clots noted to be smaller than they were. Denies any gushing blood like yesterday. Denies any dizziness, chest pain, shortness of breath, palpitations Asking about eating today. Review of Systems Review of Systems: All systems reviewed & are unremarkable except as noted in Subjective Physical Exam Physical Exam: General: Alert, oriented. No acute distress Psych: Appropriate mood and affect Neuro: No gross deficits HEENT: NC/AT CV: RRR Resp: Breath sounds clear bilaterally, no increased effort of breathing. Abdomen: Soft, nontender Extremities: trace edema in lower extremities bilaterally. Results & Data Results & Data Vital Signs (Past 12 Hours) Vital Signs Temp Pulse Pulse Pulse Resp BP BP 03/20/24 08:22 36.8 C 90 17 112/58 L 03/20/24 07:55 03/20/24 07:18 87 03/20/24 02:15 36.9 C 91 H 18 118/50 L 03/19/24 23:20 36.6 C 90 16 133/66 03/19/24 23:00 66 Pulse Ox O2 Del Method 03/20/24 08:22 100 Room Air 03/20/24 07:55 Room Air 03/20/24 07:18 03/20/24 02:15 97 Room Air 03/19/24 23:20 99 Room Air 03/19/24 23:00
[2024-03-20 09:23] LABS: Hematocrit (blood only) 24.6 % (37.0-47.0); Hemoglobin 7.9 g/dl (12.0-16.0)
[2024-03-20] MEDS: MAGNESIUM SULFATE / D5W 1 GM/100 ML BAG IV SCH (09:53)
--- NOTE | 2024-03-20 10:29 | Nephrology Progress Note ---
Date of Service March 20, 2024 Assessment & Plan (1) Acute hyponatremia: Plan: acute worsening of chronic hyponatremia; with presenting sNa 119 in setting of years of hctz use w/ intermittent mild hyponatremia as OP, most recently from March 07 showing Na 129. -hydrochlorothiazide has to be stopped and never used again. She should not be on other thiazide type diuretics. Allergy/intolerance list updated here >> need to update w/ PCP at d/c -can be on loop diuretics if needed and sometime we absolutely need to use loop diuretics to get the sodium up. 03/17 sodium labs urine sodium 37, uCl 25 and urine osmolarity 216. serum osms 253. urine studies significantly impaired by hydrochlorothiazide but can still be of some value. -currently on NS at 80 mL /hr and hemodynamically stable -corrected from 127 yest AM to 131 today, appropriate rate; K is adequate and will hold further supplements for now -aim to correct NO MORE than 8 mEq per day and no more than 18 mEq in 48 hours. -transfuse pRBC prn; s/p pRBC x 3 units, including one yesterday. Volume deficit from severe bleeding can be a powerful trigger of anti-diuretic hormone release and can cause hyponatremia in susceptible patient -NPO currently MN >> else on clears >> no indication for FR at this time >>will recheck sodium labs now to see if NS needs to continue; they will be affected by NS but will still be useful in assessing how much more NS she needs >> may be able to run lower rate only while NPO Care coordinated w/ Dr Alonso regarding sodium labs, fluid resuscitation, OR plans/if any; we are in agreement. (2) Abnormal vaginal bleeding: Plan: severe type which led to the drop of hemoglobin from 12+ to 6.6; 7.3 1500 today w/ a bit of a drop since am 7.9. Also associated with volume deficit. NURSE PLASTICS following > feels bleeding stable to consider d/c; recommends tid progestin and OP D&C on 03/22; OR also tentatively set up for 03/22 ?IP?OP? Admission and Anticipated Discharge Date Admission Date: March 17, 2024 Subjective no interval events clinically; still passing clots 0400, 0200; hgb did drop w/ this. sodium 131 today. sitting up in chair on clears (seen midday rounds) feels well > no n/v; felt really great to ambulate w/ PT. notes diffuse edema; no sob Review of Systems 2 Review of Systems: All systems reviewed & are unremarkable except as noted in Subjective Physical Exam 2 Constitutional: well developed and well nourished Eyes: EOM intact bilaterally Respiratory: normal respiratory effort Auscultation: + diminished lung sounds Musculoskeletal: Extremities: strength 5/5 throughout Skin: no rashes, warm and dry Neurologic: painter, fluent speech, no tremor Psychiatric: Orientation: alert and oriented x 3 some limited insight at times > sister helps her Results & Data Vital Signs (Past 12 Hours) Vital Signs Temp Pulse Pulse Pulse Resp BP BP 03/20/24 08:22 36.8 C 90 17 112/58 L 03/20/24 07:55 03/20/24 07:18 87 03/20/24 02:15 36.9 C 91 H 18 118/50 L 03/19/24 23:20 36.6 C 90 16 133/66 03/19/24 23:00 66 Pulse Ox O2 Del Method 03/20/24 08:22 100 Room Air 03/20/24 07:55 Room Air 03/20/24 07:18 03/20/24 02:15 97 Room Air 03/19/24 23:20 99 Room Air 03/19/24 23:00 Laboratory Results 03/20/24 08:52 03/20/24 05:28
[2024-03-20 15:25] LABS: Hematocrit (blood only) 21.8 % (37.0-47.0); Hemoglobin 7.3 g/dl (12.0-16.0)
[2024-03-20 19:51] LABS: BUN Creatinine Ratio 14.8 (10-20); Calcium 7.5 mg/dl (8.6-10.3); Potassium 4.2 mmol/L (3.5-5.1)
--- NOTE | 2024-03-21 01:24 | Ultrasound Report ---
Exam(s): US VENOUS RIGHT UPPER EXTREMITY EXAM: US Duplex Right Upper Extremity Veins CLINICAL HISTORY: Reason for exam: swelling. TECHNIQUE: Real-time duplex ultrasound scan of the right upper extremity veins integrating B-mode two-dimensional vascular structure, Doppler spectral analysis, color flow Doppler imaging and compression. COMPARISON: No relevant prior studies available. FINDINGS: Deep veins: Unremarkable. No DVT in the internal jugular, subclavian, axillary, or brachial veins. The veins demonstrate normal color flow, are normally compressible, with normal phasic flow and/or augmentation response. Superficial veins: Unremarkable. No thrombus in the visualized basilic and cephalic veins. Soft tissues: Soft tissue edema noted. IMPRESSION: No right upper extremity DVT is visualized. Electronically signed by: Claudio Paiz MD 03/21/24 01:23 AM
[2024-03-21 07:32] LABS: Albumin Globulin Ratio 1.4 (0.9-2); Albumin Level 2.3 gm/dl (3.4-5.0); Bilirubin,Total 1.4 mg/dl (0.2-1.0); Calcium 7.5 mg/dl (8.6-10.3); Creatinine Clr Calc Pharmacy 93.1 ml/min; Globulin 1.6 gm/dl (2.5-4.0); Magnesium 1.6 mg/dl (1.7-2.4); Phosphorus 2.3 mg/dl (2.5-4.9); Potassium 4.5 mmol/L (3.5-5.1); Total Protein 3.9 gm/dl (6.0-8.3)
--- NOTE | 2024-03-21 07:35 | Gynecologic Progress Note ---
Date of Service March 21, 2024 Assessment & Plan (1) Post-menopausal bleeding: Plan: the Current plan is for D+C tomorrow morning would recommend her NPO starting at midnight will await her hemoglobin this morning to see if any more transfusion is recommended Clearly if bleeding, worse in this may need to be done more urgently today. Dr. Montes De Oca and office aware of plan per chart. Will let environmental research scientist physician know spent 35 min face to face and coordinating care Admission and Anticipated Discharge Date Admission Date: March 17, 2024 Subjective still bleeding, but less than prior Physical Exam Constitutional: WD/WN, vitals as above well developed and well nourished Respiratory: normal respiratory effort, lungs clear to auscultation normal respiratory effort Cardiovascular: RRR, no murmur, no edema Gastrointestinal (Abdomen): normal bowel sounds, soft, nontender, no hepatosplenomegaly Results & Data Vital Signs (Past 12 Hours) Vital Signs Temp Pulse Pulse Resp BP Pulse Ox O2 Del Method 03/21/24 02:16 97.7 F 92 H 18 134/84 100 Room Air 03/20/24 23:38 97.9 F 84 18 133/61 100 Room Air 03/20/24 23:00 82 03/20/24 20:02 97.7 F 92 H 18 129/76 100 Room Air PG Care Time/CCT Total # of Minutes Spent Total Time Spent with Patient: Total time spent is greater than 50% in coordination of care (as documented) at patient's floor/unit and/or counseling patient: Coding Level of Care Code 08154 SUB INP/OBS CARE 2/35MIN Diagnoses Post-menopausal bleeding N95.0
[2024-03-21 07:40] LABS: Hematocrit (blood only) 19.6 % (37.0-47.0); Hemoglobin 6.5 g/dl (12.0-16.0); Mean Corpuscular Hgb Conc 33.2 g/dL (32.0-36.0); Mean Corpuscular Volume 96.6 fL (80.0-100.0); Mean Platelet Volume 8.9 fL (9.4-12.4); Platelet Count 155 K/uL (130-400); RDW Coefficient of Variation 16.9 % (11.5-14.5); Red Blood Count 2.03 M/uL (4.20-5.40); White Blood Count 6.16 K/ul (4.8-10.8)
[2024-03-21 07:41] LABS: Acanthocytes 1+; Basophils # (auto) 0.04 K/uL (0.00-0.20); Basophils % (auto) 0.6 %; Echinocytes 1+; Eosinophils # (auto) 0.11 K/uL (0.00-0.50); Eosinophils % (auto) 1.8 %; Immature Granulocytes # (auto) 0.03 K/uL (0.01-0.20); Immature Granulocytes % (auto) 0.5 %; Lymphocytes # (auto) 1.74 K/uL (1.20-3.40); Lymphocytes % (auto) 28.2 %; Neutrophils # (auto) 3.44 K/uL (1.40-6.50); Neutrophils % (auto) 55.9 %; Polychromasia 2+
[2024-03-21] MEDS ORDERED: SODIUM CHLORIDE 0.9% 250 ML IV PRN (07:58)
--- NOTE | 2024-03-21 08:30 | Nephrology Progress Note ---
Date of Service March 21, 2024 Assessment & Plan (1) Acute hyponatremia: Plan: acute worsening of chronic hyponatremia at admission w/ appropriately paced recovery; with presenting sNa 119 in setting of years of hctz use w/ intermittent mild hyponatremia as OP, most recently from March 07 showing Na 129. -hydrochlorothiazide or other thiazide like diuretics can never be used again for her. Allergy/intolerance list updated here >> need to update PCP at d/c -can be on loop diuretics if needed and sometime we absolutely need to use loop diuretics to get the sodium up. 03/17 sodium labs urine sodium 37, uCl 25 and urine osmolarity 216. serum osms 253. urine studies significantly impaired by hydrochlorothiazide but can still be of some value. 03/20 labs on NS for several days >> s OSM 277; uOsm 216, Rebecca 37, uCl 25 >>>sodium currently plateaud at 130 x 2 days now -currently on NS at 80 mL /hr and hemodynamically stable; urine studies 03/20 suggest adequate hydration > will change to bicarb gtt starting 1400, after pRBC complete -repeat BMP this PM w/ hgb draw >> prefer between 3-5 pm -K is adequate and will continue to hold further supplements for now -aim to correct NO MORE than 8 mEq per day and no more than 18 mEq in 48 hours. -transfuse pRBC prn > including today; s/p pRBC x 3 units, including one yesterday. Volume deficit from severe bleeding can be a powerful trigger of anti-diuretic hormone release and can cause hyponatremia in susceptible patient -NPO currently for MN; on regular diet for now > no indication for FR currently Care coordinated w/ Dr Alonso regarding OR timing, appropriate diet, IVF change, transfusion plans; we are in agreement. (2) Abnormal vaginal bleeding: Plan: severe type which led to the drop of hemoglobin from 12+ to 6.6; hgb 7.9 yesterday AM > 6.5 this am. Also associated with volume deficit. 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 Admission and Anticipated Discharge Date Admission Date: March 17, 2024 Subjective hgb 7.9>6.5; pt thirst, somewhat tired; tells me she's developed a stutter since arrival. mild generalized weakness adn at end of walk yesterday did have slight sob, resolved w/ rest. ongoing vaginal bleeding. no edema. Review of Systems 2 Review of Systems: All systems reviewed & are unremarkable except as noted in Subjective Physical Exam 2 Constitutional: well developed (needs 1 person asst to lean forward in bed) and well nourished Eyes: EOM intact bilaterally Respiratory: normal respiratory effort Auscultation: lungs clear to auscultation bilaterally and + diminished lung sounds Cardiovascular: Rate/Rhythm: regular rate and regular rhythm Extremities: n o edema Musculoskeletal: Extremities: strength 5/5 throughout Skin: no rashes, warm and dry Psychiatric: Orientation: alert and oriented x 3 Results & Data Vital Signs (Past 12 Hours) Vital Signs Temp Pulse Pulse Pulse Resp BP Pulse Ox 03/21/24 08:13 36.8 C 99 H 19 106/50 L 99 03/21/24 02:16 36.5 C 92 H 18 134/84 100 03/20/24 23:38 36.6 C 84 18 133/61 100 03/20/24 23:00 82 O2 Del Method 03/21/24 08:13 Room Air 03/21/24 02:16 Room Air 03/20/24 23:38 Room Air 03/20/24 23:00 Laboratory Results 03/21/24 05:31 03/21/24 05:31
--- NOTE | 2024-03-21 08:57 | Communication Note ---
Date of Service: March 21, 2024 As I am now on-call coverage for [facility], I had phone communication directly with Jing Alonso this morning regarding Ms. Segura. The standing plan at this time is for D&C tomorrow, scheduled, with Dr. Montes De Oca. For the future 24 hours, I will be the available [facility] surgeon. I am able to provide the D&C during this time period if required due to patient instability, which would be as an add-on case. I discussed with Dr. Alonso that in an ideal situation the patient's Na and electrolytes would be corrected to the most normal possible level before anesth esia, adhering to safe maximum correction rates, and her Hgb should be corrected via transfusion to the extent possible, so that her safety under anesthesia tomorrow is maximized. Given the concern for possible endometrial cancer on her imaging with >3cm thickness, some meaningful blood loss could well occur during the procedure, and it would be helpful if her Hgb can be corrected to a minimum of 8 preoperatively. The goal of care today from a DISINTEGRATOR/Surgeon perspective would be to increase her Hgb to or above that target level of 8, continuing progestin therapy aggressively as prescribed to stem concurrent blood losses, and to continue the gradual correction of her electrolytes. If ongoing improvement is not achievable today, either due to increased blood loss or worsening of fluid/electrolyte balance, the medicine team can notify me that they feel proceeding today is required despite the risks that will entail. I also made clear that D&C is not expected to provide the definitive treatment of a possible endometrial cancer, which would require hysterectomy with a Dye Stand Loader psychiatric specialist and is not available here at [facility]. The goal of D&C, if performed, is temporizing; it is hoped that this would yield reduction in bleeding and allow surgical diagnosis.
--- NOTE | 2024-03-21 09:29 | Communication Note ---
Date of Service: March 21, 2024 I have also visited with Ms. Segura, who is sitting up, speaking clearly, and in process of bed-bathing at the time of my visit. She is feeling eager to eat today, and hopeful to hold off on surgical procedure until tomorrow. I wanted to meet her and ensure she has some familiarity with me prior to any possible procedures becoming necessary today, and to put eyes on her myself and ensure she appears stable to wait. At this time plan is to serially check labs today, transfuse, and anticipate surgery tomorrow barring change in status.
[2024-03-21] MEDS: POT PHOSPHATE MONOBASIC W/ SOD TAB PO SCH (09:45)
[2024-03-21] MEDS ORDERED: SODIUM BICARBONATE 8.4% 150 MEQ in DEXTROSE 5% 1,000 ML IV SCH (10:00)
[2024-03-21] MEDS: MAGNESIUM CHLORIDE W/CALCIUM 64MG DELAYED REL TAB PO SCH (10:10)
--- NOTE | 2024-03-21 11:57 | Hospitalist Progress Note ---
Date of Service March 21, 2024 Assessment & Plan (1) Abnormal vaginal bleeding: (2) Acute hyponatremia: (3) Hypertension: Plan Patient is a 73-year-old female with past medical history significant for hypertension, hyperlipidemia and recent vaginal bleeding for which she follows with [facility] ICER, who presented for D&C hysteroscopy the day of admission and was noted to be acutely anemic requiring transfusion as well as hyponatremic. Acute blood loss anemia Suspected endometrial neoplasm Hemoglobin 1 week ago 12.4, 6.6 on admission S/p transfusion of 2U of pRBCs on 03/18, 1U pRBC on 03/19, 1U on 03/21---goal to maintain hgb >8. Consider an additional unit on 03/21 if hgb downtrending once more. Monitor for signs of volume overload with the frequent transfusions. Repeat hemoglobin up to 8 range Anemia panel with iron level within normal limits but on the lower end, folate and B12 normal [facility] consulted, appreciate further recs -Recommends continuation of norethindrone, can increase dose and frequency as needed from 5 mg to 10mg TID. Pt currently on 10mg TID dosing. - anticipates D & C on Wednesday, March 22, sooner if worsening -notes d & c for diagnostic purposes only, will likely require continuation of norethindrone and further followup at tertiary care center for hysterectomy if indeed endometrial cancer Continue to monitor hemoglobin and transfuse as needed Hyponatremia Sodium 119 on admission, was 129 on 03/07 Denies any recent nausea/vomiting/diarrhea, reports adequate oral intake Urine/serum Osmo/electrolytes ordered Continue with IV fluids at this time q6h BMP, avoid overcorrection nephrology consulted, appreciate recs -No thiazide diuretic use in the future, can use loop if needed" -was on fluids NSS, transitioned to sodium bicarb in dextrose on 03/21/24 by Nephrology Continue to monitor sodium improving, currently 130 range Hypokalemia Hypophosphatemia Hypomagnesemia Hypocalcemia Repleting as needed Hypertension Continue to hold home lisinopril/HCTZ Per nephrology recs above, No thiazide diuretic use in the future Continue to monitor BP, has started trending down Hyperlipidemia Continue statin Hx lower back pain Continue gabapentin Alcohol use: Reports drinking 4 glasses of wine daily, monitor for alcohol withdrawal AWSS at risk protocol Continue thiamine and folic acid Diet: regular diet, npo after midnight CODE STATUS: DNR/DNI DVT prophylaxis: SCDs Dispo: PT/OT ordered for further recs Admission and Anticipated Discharge Date Admission Date: March 17, 2024 Subjective patient was seen multiple times in the morning. requiring another blood transfusion this morning. States that she would like to continue with eating a regular diet. States she is agreeable to having surgery in the morning tomorrow rather than sooner. denies any dizziness, shortness of breath, chest pain or palpitations Does note that she is getting more swollen than usual Review of Systems Review of Systems: All systems reviewed & are unremarkable except as noted in Subjective Physical Exam Physical Exam: General: Alert, oriented. No acute distress Psych: Appropriate mood and affect Neuro: No gross deficits HEENT: NC/AT CV: RRR Resp: Breath sounds clear bilaterally, no increased effort of breathing. Abdomen: Soft, nontender Extremities: trace edema in lower extremities bilaterally. Results & Data Results & Data Vital Signs (Past 12 Hours) Vital Signs Temp Pulse Pulse Pulse Resp BP BP 03/21/24 10:48 90 03/21/24 10:38 36.4 C L 106 H 17 111/53 L 03/21/24 10:08 36.3 C L 104 H 17 107/47 L 03/21/24 09:53 36.5 C 82 17 111/64 03/21/24 09:37 36.6 C 80 17 133/73 03/21/24 08:13 36.8 C 99 H 19 106/50 L 03/21/24 02:16 36.5 C 92 H 18 134/84 Pulse Ox O2 Del Method O2 Flow Rate 03/21/24 10:48 03/21/24 10:38 97 0 03/21/24 10:08 97 0 03/21/24 09:53 98 0 03/21/24 09:37 98 0 03/21/24 08:13 99 Room Air 03/21/24 02:16 100 Room Air
[2024-03-21 13:03] LABS: Hematocrit (blood only) 24.1 % (37.0-47.0)
[2024-03-21] MEDS: SODIUM BICARBONATE 8.4% 150 MEQ in DEXTROSE 5% 1,000 ML IV SCH (13:29)
[2024-03-21 17:27] LABS: Hematocrit (blood only) 23.5 % (37.0-47.0); Hemoglobin 7.8 g/dl (12.0-16.0)
[2024-03-21 17:39] LABS: BUN Creatinine Ratio 16.3 (10-20); Calcium 7.3 mg/dl (8.6-10.3); Creatinine Clr Calc Pharmacy 89.3 ml/min; Potassium 3.9 mmol/L (3.5-5.1)
--- NOTE | 2024-03-21 19:14 | CT Scan Report ---
CT SCAN OF THE BRAIN WITHOUT IV CONTRAST CLINICAL HISTORY: Change in mental status. Stuttering. COMPARISON STUDY: CT of the brain dated 02/28/2024. TECHNIQUE: Unenhanced axial CT scan of the brain is performed from the vertex to the skull base. A do se lowering technique was utilized adhering to the principles of ALARA. CT DOSE: 625.8 mGy.cm FINDINGS: Brain parenchyma: There is age-related involutional change noting mild subcortical and periventricula r microangiopathic disease. There is no hemorrhage, mass effect, or evidence of acute territorial isc hemia by CT criteria. Dubon-white matter differentiation is preserved. No extra-axial fluid collection is seen. Ventricles, sulci, cisterns: Prominent secondary to involutional change. Intracranial vasculature: There is atherosclerotic calcification of the cavernous carotid and vertebr al arteries. Calvarium: Unremarkable. Sinuses and mastoids: The visualized paranasal sinuses are clear. The mastoid air cells are well pneu matized. Orbits: The bony orbits are grossly intact. There are bilateral ocular lens implants. IMPRESSION: There is no hemorrhage, mass effect, or evidence of acute territorial ischemia by CT greyson ramirez. ACT 112: Negative or not required by law. Electronically signed by: Dharmesh Mckeon M.D. 03/21/2024 7:11 PM
--- NOTE | 2024-03-21 19:15 | Communication Note ---
Date of Service: March 21, 2024 Notified by nursing that pt's occasional stutter had worsened at the end of the day. CT head ordered, r/o stroke or bleed given vaginal bleeding with significant anemia requiring 4U of blood to be transfused so far. Radiology read pending at the time of this writing. Signed out to mat sewer Dr Mane Carreno for kind follow up.
[2024-03-21 19:47] LABS: Magnesium 1.6 mg/dl (1.7-2.4)
[2024-03-21] MEDS: LORazepam 0.5 MG TAB PO PRN (20:38)
[2024-03-21 20:48] LABS: Hemoglobin 7.9 g/dl (12.0-16.0)
--- NOTE | 2024-03-21 22:10 | Magnetic Resonance Report ---
MR ANGIOGRAM OF THE BRAIN CLINICAL HISTORY: Change in mental status. Stuttering. COMPARISON STUDY: MRI of the brain performed concurrently on 03/21/2024. TECHNIQUE: 3-D [id number] MR angiography of the intracranial circulation is performed. 3-D tumble views are created and assessed. IV contrast was not administered for this examination. FINDINGS: The internal carotid arteries are widely patent bilaterally, as are the anterior and middle cerebral arteries. The vertebrobasilar system and posterior cerebral arteries are widely patent. The vertebral arteries are codominant. There is no aneurysm, high-grade stenosis, or focal vessel cutoff seen throughout the intracranial circulation. The brain parenchyma is normal as visualized. IMPRESSION: Unremarkable MR angiogram of the brain. ACT 112: Negative or not required by law. Electronically signed by: Dharmesh Mckeon M.D. 03/21/2024 10:09 PM
--- NOTE | 2024-03-21 22:14 | Magnetic Resonance Report ---
MRI OF THE BRAIN WITHOUT IV CONTRAST CLINICAL HISTORY: Change in mental status. Increased stuttering. COMPARISON STUDY: CT of the brain dated 03/21/2024. TECHNIQUE: MRI of the brain was performed utilizing various T1 and T2-weighted sequences in the axial , sagittal, and coronal planes. IV contrast was not administered for this examination. FINDINGS: Brain parenchyma: There is age-related involutional change. There is no hemorrhage or mass effect. Th ere is no restricted diffusion to suggest acute ischemia. Dubon-white matter differentiation is preser shala. No extra-axial fluid collection is seen. The cerebellar tonsils are normal in configuration. Ventricles, sulci, and cisterns: Prominent secondary to involutional change. Pituitary and sella: Unremarkable. Intracranial vasculature: Normal flow voids are maintained at the skull base. Orbits: The bony orbits are grossly intact. Orbital contents are normal in appearance noting bilatera l ocular lens implants. Sinuses and mastoids: Clear. Calvarium: Unremarkable. Cervical cord: Partially visualized cervical spinal cord is normal in morphology and signal intensity . IMPRESSION: No acute intracranial abnormality. ACT 112: Negative or not required by law. Electronically signed by: Dharmesh Mckeon M.D. 03/21/2024 10:11 PM
[2024-03-22 01:06] LABS: Hematocrit (blood only) 21.2 % (37.0-47.0); Hemoglobin 6.9 g/dl (12.0-16.0)
[2024-03-22] MEDS ORDERED: SODIUM CHLORIDE 0.9% 250 ML IV PRN (01:11)
[2024-03-22 06:18] LABS: Basophils # (auto) 0.03 K/uL (0.00-0.20); Basophils % (auto) 0.6 %; Eosinophils # (auto) 0.09 K/uL (0.00-0.50); Eosinophils % (auto) 1.8 %; Hematocrit (blood only) 25.7 % (37.0-47.0); Hemoglobin 8.7 g/dl (12.0-16.0); Immature Granulocytes # (auto) 0.02 K/uL (0.01-0.20); Immature Granulocytes % (auto) 0.4 %; Lymphocytes # (auto) 1.47 K/uL (1.20-3.40); Lymphocytes % (auto) 29.1 %; Mean Corpuscular Hemoglobin 31.5 pg (25.0-34.0); Mean Corpuscular Hgb Conc 33.9 g/dL (32.0-36.0); Mean Corpuscular Volume 93.1 fL (80.0-100.0); Mean Platelet Volume 8.5 fL (9.4-12.4); Monocytes # (auto) 0.83 K/uL (0.11-0.59); Monocytes % (auto) 16.4 %; Neutrophils # (auto) 2.61 K/uL (1.40-6.50); Neutrophils % (auto) 51.7 %; Platelet Count 136 K/uL (130-400); RDW Standard Deviation 54.6 fL (36.4-46.3); Red Blood Count 2.76 M/uL (4.20-5.40); White Blood Count 5.05 K/ul (4.8-10.8)
[2024-03-22 07:12] LABS: Albumin Globulin Ratio 1.4 (0.9-2); Albumin Level 2.2 gm/dl (3.4-5.0); BUN Creatinine Ratio 18.6 (10-20); Calcium 7.3 mg/dl (8.6-10.3); Creatinine Clr Calc Pharmacy 113.9 ml/min; Globulin 1.6 gm/dl (2.5-4.0); Magnesium 1.5 mg/dl (1.7-2.4); Phosphorus 3.3 mg/dl (2.5-4.9); Potassium 3.6 mmol/L (3.5-5.1); Total Protein 3.8 gm/dl (6.0-8.3)
[2024-03-22] MEDS: LACTATED RINGER'S 1,000 ML IV SCH (10:27)
[2024-03-22] MEDS ORDERED: FLUMAZENIL 0.1 MG/1 ML 10 ML VIAL IV PRN (10:28)
[2024-03-22] MEDS ORDERED: ATROPINE SULFATE 0.1 MG/ML 10ML SYR IV PRN (10:28)
[2024-03-22] MEDS ORDERED: PROMETHAZINE HCL 6.25 MG in SODIUM CHLORIDE 0.9% 50 ML IV PRN (10:28)
[2024-03-22] MEDS ORDERED: ONDANSETRON INJ 2 MG/ML 2 ML VIAL IV PRN (10:28)
[2024-03-22] MEDS ORDERED: fentaNYL citrate PF 100 MCG/2 ML VIAL IV PRN (10:28)
[2024-03-22] MEDS ORDERED: LABETALOL HCL IV 5 MG/ML 20ML IV PRN (10:28)
[2024-03-22] MEDS ORDERED: ePHEDrine sulfate 50 MG/ML AMP IV PRN (10:28)
[2024-03-22] MEDS ORDERED: NALOXONE HCL 0.4 MG/1 ML VIAL/CARP IV PRN (10:28)
--- NOTE | 2024-03-22 10:49 | History & Physical Bridge Note ---
Date of Service March 22, 2024 History & Physical Bridge Note I have examined the patient, reviewed the History & Physical and in the interval since the performance of the History & Physical I have noted the following changes of clinical significance: no changes noted
[2024-03-22] MEDS ORDERED: fentaNYL citrate PF 100 MCG/2 ML VIAL ONE (10:55)
[2024-03-22] MEDS ORDERED: PROPOFOL IV EMULSION 10 MG/ML 20 ML VIAL IV ONE (10:56)
[2024-03-22] MEDS ORDERED: DEXAMETHASONE SOD INJ 4 MG/ML VIAL ONE (10:56)
[2024-03-22] MEDS ORDERED: ONDANSETRON INJ 2 MG/ML 2 ML VIAL ONE (10:56)
[2024-03-22] MEDS ORDERED: LIDOCAINE 2% 2 ML VIAL/AMP(20MG/ML) INFIL ONE (10:56)
--- NOTE | 2024-03-22 11:09 | Hospitalist Progress Note ---
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 Acute blood loss anemia Suspected endometrial neoplasm Hemoglobin 1 week prior to admission- 12.4, 6.6 on admission s/p 4 units of packed RBCs WEB DEVELOPMENT DIRECTOR consulted, appreciate further recs -Recommends continuation of norethindrone, can increase dose and frequency as needed from 5 mg to 10mg TID. Pt currently on 10mg TID dosing. - anticipates D & C on March 22 -notes d & c for diagnostic purposes only, will likely require continuation of norethindrone and further followup at [facility] for hysterectomy if indeed endometrial cancer Continue to monitor hemoglobin and transfuse as needed Hyponatremia Sodium 119 on admission, was 129 on 03/07. improving gradually. Denies any recent nausea/vomiting/diarrhea, reports adequate oral intake nephrology consulted, appreciate recs -No thiazide diuretic use in the future, can use loop if needed" -was on fluids NSS, transitioned to sodium bicarb in dextrose on 03/21/24 by Nephrology Continue to monitor Hypokalemia Hypophosphatemia Hypomagnesemia Hypocalcemia Repleting as needed Hypertension Continue to hold home lisinopril/HCTZ Per nephrology recs above, No thiazide diuretic use in the future Continue to monitor BP Hyperlipidemia Continue statin Hx lower back pain Continue gabapentin Alcohol use: Reports drinking 4 glasses of wine daily, monitor for alcohol withdrawal monitor for withdrawal Diet: npo for the procedure today CODE STATUS: DNR/DNI DVT prophylaxis: SCDs Dispo: PT/OT ordered Time spent evaluating patient, direct bedside care, chart review, placing orders, interpretation of diagnostic studies as well as other required patient management activities is 50 minutes Please note the above document was generated using voice recognition software. It may contain grammatical, syntax or spelling errors. Any formal questions or concerns about the content, text or information contained within the body of this dictation should be directly addressed to the provider for clarification Admission and Anticipated Discharge Date Admission Date: March 17, 2024 Subjective Patient seen and examined at bedside. She is comfortably lying in the bed; not in distress Discussed with RN; no reports of passage of clots at this time Review of Systems Review of Systems: All systems reviewed & are unremarkable except as noted in Subjective Physical Exam Physical Exam: Constitutional: Alert oriented x 3; not in distress. Respiratory: Bilateral vesicular breath sound Cardiovascular: RRR, no murmur, no edema Vessels: no JVD or carotid bruit Chest: normal inspection of chest Abdomen: normal bowel sounds, soft, nontender, no hepatosplenomegaly Musculoskeletal: no cyanosis or clubbing, extremities motor strength 5/5 Skin: no rashes, warm and dry normal turgor Neurologic: PERRL, EOMI, accommodation nl, no face palsy, no dysarthria CN's II- XI intact bilaterally and moves all extremities Psychiatric: A+Ox3, euthymic affect Results & Data Results & Data Vital Signs (Past 12 Hours) Vital Signs Temp Pulse Pulse Pulse Resp BP BP 03/22/24 10:19 37 C 91 H 16 03/22/24 08:11 36.7 C 89 19 03/22/24 04:40 36.9 C 92 H 16 152/72 H 03/22/24 04:03 36.9 C 89 16 138/86 03/22/24 03:03 36.7 C 88 16 142/84 H 03/22/24 03:02 36.7 C 91 H 19 142/84 H 03/22/24 02:33 36.9 C 93 H 16 154/65 H 03/22/24 02:18 36.7 C 88 16 164/72 H 03/22/24 02:02 36.9 C 94 H 16 149/85 H 03/22/24 01:47 90 BP Pulse Ox O2 Del Method 03/22/24 10:19 123/58 L 96 Room Air 03/22/24 08:11 131/64 97 Room Air 03/22/24 04:40 97 03/22/24 04:03 96 03/22/24 03:03 94 03/22/24 03:02 100 Room Air 03/22/24 02:33 93 03/22/24 02:18 99 03/22/24 02:02 98 03/22/24 01:47
[2024-03-22] MEDS ORDERED: PHENYLEPHRINE 100MCG/ML 10ML SYR IV ONE (11:14)
--- NOTE | 2024-03-22 11:41 | Operative Report ---
PG Post Operative Report Pre & Post Diagnosis Operation Date: 03/22/24 11:10 Pre-Op Diagnosis: Post-menopausal bleeding Post-Op Diagnosis: Post-menopausal bleeding, intracavitary uterine fibroid I identified the patient and participated in the time-out.: Yes Procedure Operation Date: 03/22/24 11:10 Actual Procedures p Hysteroscopy - MD ana Whipple Dilation of the Cervix and Curettage with Myomectomy - Addison Montes De Oca MD Surgeon Addison Montes De Oca MD Metal Filer OR staff Estimated Blood Loss 5 Findings Consistent with Post-Op Diagnosis Mildly fluffy endometrium. A intracavitary fibroid approximately 1 cm in diameter extending from the anterior uterus near fundus Specimens Intracavitary uterine fibroids and curettings Description of Procedure Patient was taken to the operating room after concerns for sure. Upon presentation was proper identified. Anesthesia obtained without difficulty patient prepped and draped in normal sterile fashion. Preprocedural timeout was performed and a speculum placed within vagina and cervix visualized. Single- tooth tenaculum placed on superior aspect of the cervix. There were clots noted in the posterior cul-de-sac measuring about golf ball size in total. The cervix was visually dilated to approximately 1 cm and no dilation required. A hysteros cope was introduced through the cervix into the uterus and there is noted to be mildly fluffy appearing endometrium and an approximate 1 cm anterior fundal fibroid. The MyoSure device was attached to the hysteroscope and was resected to its base. A general global sampling was performed with the MyoSure as well as a global sharp curettage was also performed. All instruments removed. Bleeding was noted be minimal at the completion of the procedure. Patient awoken from anesthesia and taken recovery room in stable condition. I attest to the content of the Intraoperative Record and any orders documented therein. Any exceptions are noted below. STRIP CUTTER Minor Procedure Codes D&E/D&C 19120 D/C with Hysteroscopy Hysteroscopy(ic) 19752 HSC Myomectomy
--- NOTE | 2024-03-22 12:26 | Anesthesiology Progress Note ---
Date of Service March 22, 2024 Anesthesia Post Procedure Vital Signs Vital Signs: Temp Pulse Pulse Pulse Resp BP BP 03/22/24 12:20 37.1 C 88 12 03/22/24 12:10 86 12 03/22/24 12:00 90 16 03/22/24 11:50 89 14 03/22/24 11:42 36.2 C L 100 H 16 03/22/24 10:19 37 C 91 H 16 03/22/24 08:11 36.7 C 89 19 03/22/24 04:40 36.9 C 92 H 16 152/72 H 03/22/24 04:03 36.9 C 89 16 138/86 03/22/24 03:03 36.7 C 88 16 142/84 H 03/22/24 03:02 36.7 C 91 H 19 142/84 H 03/22/24 02:33 36.9 C 93 H 16 154/65 H 03/22/24 02:18 36.7 C 88 16 164/72 H 03/22/24 02:02 36.9 C 94 H 16 149/85 H 03/22/24 01:47 90 03/21/24 22:37 36.7 C 103 H 18 147/79 H 03/21/24 15:20 36.7 C 98 H 12 119/60 03/21/24 14:35 105 H BP Pulse Ox O2 Del Method O2 Flow Rate 03/22/24 12:20 110/59 L 97 Room Air 03/22/24 12:10 113/58 L 97 Room Air 03/22/24 12:00 111/67 100 Room Air 03/22/24 11:50 118/61 100 Oxymask 3 03/22/24 11:42 119/61 100 Oxymask 6 03/22/24 10:19 123/58 L 96 Room Air 03/22/24 08:11 131/64 97 Room Air 03/22/24 04:40 97 03/22/24 04:03 96 03/22/24 03:03 94 03/22/24 03:02 100 Room Air 03/22/24 02:33 93 03/22/24 02:18 99 03/22/24 02:02 98 03/22/24 01:47 03/21/24 22:37 99 Room Air 03/21/24 15:20 99 Room Air 03/21/24 14:35 Transfer of Care Handoff Completed per policy Notes Mental Status: alert / awake / arousable Patient Amnestic to Procedure: Yes Nausea / Vomiting: adequately controlled Pain: adequately controlled Airway Patency, RR, SpO2: stable & adequate BP & HR: stable & adequate Hydration State: stable & adequate Anesthetic Complications: no major complications apparent
[2024-03-22] MEDS: MAGNESIUM SULFATE / D5W 1 GM/100 ML BAG IV SCH (13:06)
--- NOTE | 2024-03-22 13:20 | Nephrology Progress Note ---
Date of Service March 22, 2024 Assessment & Plan (1) Chronic hyponatremia: Plan: worsening of chronic hyponatremia to critical levels at admission w/ appropriately paced recovery; presenting sNa 119 in setting of years of hctz use w/ intermittent mild hyponatremia as OP, most recently from March 07 showing Na 129. -hydrochlorothiazide or other thiazide like diuretics can never be used again for her. Allergy/intolerance list updated here >> need to update PCP at d/c -can be on loop diuretics if needed and sometime we absolutely need to use loop diuretics to get the sodium up. 03/17 sodium labs urine sodium 37, uCl 25 and urine osmolarity 216. serum osms 253. urine studies significantly impaired by hydrochlorothiazide but can still be of some value. 03/20 labs on NS for several days >> s OSM 277; uOsm 216, Rebecca 37, uCl 25 >>>sodium up to 132 today, correcting appropriately but w/ mild low K and ongoing NAGMA -changed bicarb gtt to 1/2 NS w/ 75 mEq/L NS + 40 mEQ/L K at 80 mL hourly; urine studies 03/20 suggest adequate hydration so will give one liter -daily BMP adequate at this point -K dropped and will start po supplements 10 mEq bid -aim to correct Na NO MORE than 8 mEq per day and no more than 18 mEq in 48 hours. -transfuse pRBC prn > including today; s/p pRBC x 5 units, including one yesterday; s/p D&C 03/22. Volume deficit from severe bleeding can be a powerful trigger of anti-diuretic hormone release and can cause hyponatremia in susceptible patient -just getting off of NPO > can think about FR tomorrow Care coordinated w/ Dr Geiger regarding IVF change, K supplements, FR; we are in agreement. (2) Post-menopausal bleeding: Plan: hgb today 8.7; s/p pRBC x 5 units; per primary service Admission and Anticipated Discharge Date Admission Date: March 17, 2024 Physical Exam 2 Constitutional: well developed (needs 1 person asst to lean forward in bed) and well nourished Eyes: EOM intact bilaterally Respiratory: normal respiratory effort Auscultation: lungs clear to auscultation bilaterally and + diminished lung sounds Cardiovascular: Rate/Rhythm: regular rate and regular rhythm Extremities: n o edema Musculoskeletal: Extremities: strength 5/5 throughout Skin: no rashes, warm and dry Psychiatric: Orientation: alert and oriented x 3 Results & Data Vital Signs (Past 12 Hours) Vital Signs Temp Pulse Pulse Pulse Resp BP BP 03/22/24 12:35 37.1 C 90 03/22/24 12:20 37.1 C 88 12 03/22/24 12:15 82 16 03/22/24 12:10 86 12 03/22/24 12:00 90 16 03/22/24 11:50 89 14 03/22/24 11:42 36.2 C L 100 H 16 03/22/24 10:19 37 C 91 H 16 03/22/24 08:11 36.7 C 89 19 03/22/24 04:40 36.9 C 92 H 16 152/72 H 03/22/24 04:03 36.9 C 89 16 138/86 03/22/24 03:03 36.7 C 88 16 142/84 H 03/22/24 03:02 36.7 C 91 H 19 142/84 H 03/22/24 02:33 36.9 C 93 H 16 154/65 H 03/22/24 02:18 36.7 C 88 16 164/72 H 03/22/24 02:02 36.9 C 94 H 16 149/85 H 03/22/24 01:47 90 BP Pulse Ox O2 Del Method O2 Flow Rate 03/22/24 12:35 121/86 97 Room Air 03/22/24 12:20 110/59 L 97 Room Air 03/22/24 12:15 117/59 L 95 Room Air 03/22/24 12:10 113/58 L 97 Room Air 03/22/24 12:00 111/67 100 Room Air 03/22/24 11:50 118/61 100 Oxymask 3 03/22/24 11:42 119/61 100 Oxymask 6 03/22/24 10:19 123/58 L 96 Room Air 03/22/24 08:11 131/64 97 Room Air 03/22/24 04:40 97 03/22/24 04:03 96 03/22/24 03:03 94 03/22/24 03:02 100 Room Air 03/22/24 02:33 93 03/22/24 02:18 99 03/22/24 02:02 98 03/22/24 01:47 Laboratory Results 03/22/24 05:50 03/22/24 05:50
[2024-03-22] MEDS: SODIUM BICARBONATE 8.4% 75 MEQ, POTASSIUM CHLORIDE 40 MEQ in SODIUM CHLORIDE 0.45 % 1,0... IV SCH (14:13)
[2024-03-22] MEDS: POTASSIUM CHLORIDE 10 MEQ TABCR PO SCH (21:35)
[2024-03-22] MEDS: MELATONIN 3 MG TAB PO PRN (22:53)
[2024-03-23 07:32] LABS: Hematocrit (blood only) 23.3 % (37.0-47.0); Hemoglobin 7.7 g/dl (12.0-16.0); Immature Granulocytes # (auto) 0.03 K/uL (0.01-0.20); Immature Granulocytes % (auto) 0.7 %; Lymphocytes # (auto) 0.71 K/uL (1.20-3.40); Lymphocytes % (auto) 15.6 %; Mean Corpuscular Hemoglobin 31.2 pg (25.0-34.0); Mean Corpuscular Volume 94.3 fL (80.0-100.0); Mean Platelet Volume 8.5 fL (9.4-12.4); Monocytes # (auto) 0.43 K/uL (0.11-0.59); Monocytes % (auto) 9.5 %; Neutrophils # (auto) 3.37 K/uL (1.40-6.50); Neutrophils % (auto) 74.2 %; Platelet Count 132 K/uL (130-400); RDW Coefficient of Variation 16.1 % (11.5-14.5); RDW Standard Deviation 55.4 fL (36.4-46.3); Red Blood Count 2.47 M/uL (4.20-5.40); White Blood Count 4.54 K/ul (4.8-10.8)
[2024-03-23 07:58] LABS: Albumin Globulin Ratio 1.4 (0.9-2); Albumin Level 2.1 gm/dl (3.4-5.0); BUN Creatinine Ratio 14.5 (10-20); Bilirubin,Total 1.7 mg/dl (0.2-1.0); Creatinine Clr Calc Pharmacy 89.3 ml/min; Globulin 1.5 gm/dl (2.5-4.0); Total Protein 3.6 gm/dl (6.0-8.3)
[2024-03-23 08:01] VITALS: RESP 19
--- NOTE | 2024-03-23 08:14 | Gynecologic Progress Note ---
Date of Service March 23, 2024 Assessment & Plan (1) Post-menopausal bleeding: (2) Severe anemia: (3) Post-operative state: Plan will await pathology report and she is aware soil scientist provider will call her with results and arrangements can be made for referral, all can be done as outpt. she is aware we are not in charge of her dc planning and will discuss with her primary team. scant bleeding this am, not like it was before perpt. hgb this am noted. seems strange that her hgb has been drifting given she does not report significant bleeding, ? other source of bleeding. Admission and Anticipated Discharge Date Admission Date: March 17, 2024 Subjective visited with pt and she reports only scant bleeding, much improved. asking about when she will get to go home and process for referral to soil scientist onc if indicated. denies pelvic pain or foul smelling vaginal dc. Review of Systems Constitutional: as per Subjective / HPI Physical Exam Constitutional: WD/WN, vitals as above Gastrointestinal (Abdomen): soft nt Results & Data Vital Signs (Past 12 Hours) Vital Signs Temp Pulse Pulse Resp BP Pulse Ox O2 Del Method 03/23/24 08:00 98.6 F 117 H 19 117/60 98 Room Air 03/23/24 02:25 98.2 F 91 H 18 127/69 94 Room Air 03/22/24 22:49 98.4 F 96 H 18 145/75 H 96 Room Air 03/22/24 22:00 86 PG Care Time/CCT Total # of Minutes Spent Total Time Spent with Patient: Total time spent is greater than 50% in coordination of care (as documented) at patient's floor/unit and/or counseling patient: Coding Level of Care Code None Diagnoses Post-menopausal bleeding N95.0 Severe anemia D64.9 Post-operative state Z98.890
[2024-03-23 08:21] LABS: Polychromasia 1+
[2024-03-23 11:02] VITALS: PULSE 87; TEMP 98.1; O2SAT 97
[2024-03-23 11:52] VITALS: BP 121/86
--- NOTE | 2024-03-23 11:59 | Discharge Summary ---
Date of Service March 23, 2024 Admission HPI Per Admitting Provider Ratna is a 73-year-old with postmenopausal bleeding and was planned for a D&C hysteroscopy yesterday. In preop with patient noted to have acute anemia and was started on transfusion. As a result she was evaluated further and was noted to have significant electrolyte abnormalities resulting in cancellation of her procedure for repletion of electrolytes and blood transfusion. Was started on 5 mg norethindrone twice daily when I saw her in clinic earlier this week. She reports that bleeding has decreased to spotting at present. Admission Exam Per Admitting Provider Constitutional: WD/WN, vitals as above well developed and well nourished Eyes: PERRL, conjunctivae normal, anicteric sclerae ENMT: external ear and nose normal, oropharynx normal Neck: trachea midline, no thyromegaly Respiratory: normal respiratory effort, lungs clear to auscultation Cardiovascular: RRR, no murmur, no edema Chest (Breasts): normal inspection/palpation of breasts Gastrointestinal (Abdomen): normal bowel sounds, soft, nontender, no hepatosplenomegaly Musculoskeletal: no cyanosis or clubbing, extremities motor strength 5/5 Skin: no rashes, warm and dry Neurologic: PERRL, EOMI, accommodation nl, no face palsy, no dysarthria Psychiatric: A+Ox3, euthymic affect Genitourinary: no vaginal lesions, no adnexal mass (Vaginal bleeding) Lymphatic: no cervical or axillary lymphadenopathy Principal Diagnosis Acute blood loss anemia: Suspected endometrial neoplasm: Hyponatremia Discharge Exam Constitutional: Alert oriented x 3; not in distress. Respiratory: Bilateral vesicular breath sound Cardiovascular: RRR, no murmur, no edema Vessels: no JVD or carotid bruit Chest: normal inspection of chest Abdomen: normal bowel sounds, soft, nontender, no hepatosplenomegaly Musculoskeletal: no cyanosis or clubbing, extremities motor strength 5/5 Skin: no rashes, warm and dry normal turgor Neurologic: PERRL, EOMI, accommodation nl, no face palsy, no dysarthria CN's II- XI intact bilaterally and moves all extremities Psychiatric: A+Ox3, euthymic affect Discharge Data Allergies Allergy/AdvReac Type Severity Reaction Status Date / Time hydrochlorothiazide AdvReac Intermediate Unknown Verified 03/22/24 14:24 Consultations 03/17/24 10:45 Consult Hospitalist Stat 03/17/24 11:02 Consult Nephrology Routine 03/18/24 07:47 Consult Gynecology Routine Procedures Performed Operation Date: 03/22/24 11:10 Actual Procedures p Hysteroscopy - Addison Montes De Oca MD s Dilation of the Cervix and Curettage with Removal of Polyp - Addison Montes De Oca MD Ordered Studies 03/18/24 13:08 CT Abd and Pelvis [CT abd pelvis IV con only] Routine 03/20/24 21:00 US venous doppler UE RT Stat 03/21/24 17:40 CT head/brain wo con Urgent 03/21/24 19:28 MR angio head wo con Urgent MR brain wo con Urgent Hospital Course (1) Abnormal vaginal bleeding: (2) Acute hyponatremia: (3) Hypertension: Plan Acute blood loss anemia Suspected endometrial neoplasm Hyponatremia Patient is a 73-year-old female with past medical history significant for hypertension, hyperlipidemia and recent vaginal bleeding for which she follows with [facility], who presented for D&C hysteroscopy. On the day of admission and was noted to be a anemic requiring transfusion as well as hyponatremic. Hemoglobin 1 week prior to admission- 12.4 g/dl. It was 6.6 g/dl on admission During the hospitalization, patient was transfused 4 unit of packed RBC. Gynecology was consulted and patient underwent dilation of cervix and curettaged with myomectomy on 03/22/2024. She was also started on norethindrone as per recommendation by gynecology. After undergoing D&C; patient reported minimal bleeding. Gynecology saw the patient on the day of the discharge; plans to call with the results of the D&C and referral to be made as outpatient depending on the results. For the hyponatremia, patient's hydrochlorothiazide was stopped. Nephrology was consulted for comanagement; was given IV fluids with improvement in serum sodium level. Lisinopril/hydrochlorothiazide were discontinued at discharge as patient's blood pressure was normotensive during the hospitalization. She was recommended to monitor her blood pressure at home and follow-up with her primary care doctor. She will need CBC, BMP weekly to be obtained by her primary care doctor. This was recommended by Nephrology. If her serum sodium is on the lower side on workup; recommended following up with nephrology as outpatient Please note the above document was generated using voice recognition software. It may contain grammatical, syntax or spelling errors. Any formal questions or concerns about the content, text or information contained within the body of this dictation should be directly addressed to the provider for clarification Total Time Total Time Spent Total Time Spent (In Minutes): 35 Total Time Includes: Examination of the Patient, Discharge Planning, Medication Reconciliation, Communication With Other Providers and Other Discharge Plan Discharge Items Patient Disposition: Home - Self-Care Reason For Visit: ANEMIA AND ELECTROLYTE IMBALANCE Discharge Diagnosis: Post-menopausal bleeding Anemia Electolytes abnormalities Activity: Resume your previous activity Non-emergency contact: Primary Care Provider Call non-emergency contact if: you have any medication questions and your symptoms worsen Follow-up/Referrals: Kenny Pacheco DO [Primary Care Provider] - (Date & Time 03/29/2024 11:00 AM Provider Kenny Pacheco DO Department [facility] ) Addison Montes De Oca MD [Physician] - Diet: Regular Addtl Attending Provider Instructions: You were admitted to the hospital due to vaginal bleeding. You underwent D&C by Dr. Montes De Oca on 03/22/2024. The results are still pending. Dr. Seth will call you with the results. We recommend you to continue on Norethidrone acetate 10 mg 3 times a day for now. You are also found to have electrolytes abnormalities. You are prescribed calcium and magnesium supplement. Please take them as prescribed. You are found to have low sodium levels. Please stop taking lisinoprilhydrochlorothiazide. Your blood pressure is on the lower side during the hospitalization. Please continue to measure blood pressure at home and make a log of it. You need to be placed back on antihypertensives ( not on hydrochlorothiazide) if blood pressure increases in the future. Pending Studies at Discharge: No Stand-Alone Forms: My [employer], Smoking Cessation Medications and DC Order Prescriptions: New magnesium chloride [Mag 64] 64 mg Tablet,Delayed Release (Dr/Ec) 128 mg PO BID Qty: 60 0RF norethindrone acetate 5 mg Tablet 10 mg PO TID 10 Days Qty: 60 0RF calcium carbonate-vitamin D3 [Calcium 500 + D] 500 mg-10 mcg (400 unit) tablet 1 tab PO BID Qty: 60 0RF Continued simvastatin 40 mg Tablet 40 mg PO QPM Qty: 0 gabapentin 300 mg capsule 300 mg PO HS Qty: 30 1RF Discontinued ibuprofen 400 mg tablet 400 mg PO Q8H PRN (Reason: Pain) lisinopril-hydrochlorothiazide 20-25 mg Tablet 1 tab PO QPM Qty: 0 norethindrone acetate 5 mg tablet 10 mg PO TID Qty: 30 0RF Discharge Orders: Discharge Order (Routine); Ordered 03/23/24 Ordered By: Aubrey Geiger Admission Data Admit Date/Time: 03/17/24 11:20 Attending Provider: Aubrey Geiger Admit Provider: Donovan Gilliland Primary Care Provider: Kenny Pacheco Other Providers: Mason Dwyer Roshan; Kraft, Joshua D. Other Interventions: Discharge Summary Assessment (RN) Last Done: 03/23/24 11:40
--- NOTE | 2024-03-23 12:35 | Nephrology Progress Note ---
Date of Service March 23, 2024 Assessment & Plan (1) Chronic hyponatremia: Plan: worsening of chronic hyponatremia to critical levels at admission w/ appropriately paced recovery; presenting sNa 119 in setting of years of hctz use w/ intermittent mild hyponatremia as OP, most recently from March 07 showing Na 129. -hydrochlorothiazide or other thiazide like diuretics can never be used again for her. Allergy/intolerance list updated here >> need to update PCP at d/c -can be on loop diuretics if needed and sometime we absolutely need to use loop diuretics to get the sodium up. 03/17 sodium labs urine sodium 37, uCl 25 and urine osmolarity 216. serum osms 253. urine studies significantly impaired by hydrochlorothiazide but can still be of some value. 03/20 labs on NS for several days >> s OSM 277; uOsm 216, Rebecca 37, uCl 25 >>>sodium up to 133 today, K and NAGMA have corrected NEPHRO d/c RECS -aim for 40-60 oz daily fluid intake -increase protein intake by 2 servings/day >> high protein foods reviewed -d/c on K supplements 10 mEq bid -recommend PCP order weekly bmp and hgb x 3 -adjust K dosing to keep K at 4; this will help maintain normal sodium -routine neph referral if persistent hyponatremia; else no neph f/u needed >imperative that OP allergy/med intolerances show that she cannot have hctz or TZ-like diuretics Care coordinated repeatedly w/ Dr Geiger regarding med intolerance update, f/u labs, f/u neph appts; we are in agreement. (2) Post-menopausal bleeding: Plan: hgb today 7.7; s/p pRBC x 5 units; per primary service; OP monitoring as above Admission and Anticipated Discharge Date Admission Date: March 17, 2024 Subjective seen and evaluated mid-late AM. feeling/doing well. for d/c today; for upcoming OP hysterectomy. still some vaginal bleeding but more patchy. HR up w/ walking, settles w/ rest, asx. no sob, no edema. Review of Systems 2 Review of Systems: All systems reviewed & are unremarkable except as noted in Subjective Physical Exam 2 Constitutional: well developed (sitting up in chair on RA), well nourished and cooperative Eyes: EOM intact bilaterally Respiratory: normal respiratory effort Auscultation: lungs clear to auscultation bilaterally and + diminished lung sounds Cardiovascular: Rate/Rhythm: regular rate and regular rhythm Extremities: + edema (trace BLE dependent) Musculoskeletal: Extremities: strength 5/5 throughout Skin: no rashes, warm and dry Psychiatric: Orientation: alert and oriented x 3 Results & Data Vital Signs (Past 12 Hours) Vital Signs Temp Pulse Pulse Resp BP BP Pulse Ox 03/23/24 11:40 36.7 C 117 H 87 19 125/60 121/86 97 03/23/24 10:58 36.7 C 87 19 125/60 97 03/23/24 08:00 37.0 C 117 H 19 117/60 98 03/23/24 02:25 36.8 C 91 H 18 127/69 94 O2 Del Method 03/23/24 11:40 03/23/24 10:58 Room Air 03/23/24 08:00 Room Air 03/23/24 02:25 Room Air Laboratory Results 03/23/24 07:06 03/23/24 07:06
== END 2024-03-23 13:28 | disposition home or self-care (01) | DRG 744 ==
LOC: ASU 07:41 → SUATTDRO 11:20 → 2E 11:20

== ENCOUNTER 2024-03-28 12:18 | Inpatient (IN) ==
--- NOTE | 2024-03-28 13:05 | XRay Report ---
XR chest 1V not portable CLINICAL HISTORY: fluid overload COMPARISON STUDY: Chest CT April 21, 2016. Chest radiograph February 28, 2024. FINDINGS: Multiple old, healed right-sided rib fractures are incidentally noted. Lung volumes are nor mal. There is no consolidation. Linear left basilar densities favor atelectasis. There is no pneumoth orax or pleural effusion. Cardiac size is normal. Mediastinal contours are normal. There is no eviden ce for pulmonary edema. IMPRESSION: No acute cardiopulmonary findings. No significant change in appearance of the chest. ACT 112: Negative or not required by law. Electronically signed by: Kingsley Moyer M.D. 03/28/2024 1:04 PM
[2024-03-28 13:19] LABS: Basophils # (auto) 0.06 K/uL (0.00-0.20); Basophils % (auto) 0.7 %; Eosinophils # (auto) 0.03 K/uL (0.00-0.50); Eosinophils % (auto) 0.4 %; Hematocrit (blood only) 33.3 % (37.0-47.0); Hemoglobin 10.5 g/dl (12.0-16.0); Immature Granulocytes # (auto) 0.04 K/uL (0.01-0.20); Immature Granulocytes % (auto) 0.5 %; Lymphocytes # (auto) 1.25 K/uL (1.20-3.40); Lymphocytes % (auto) 14.7 %; Mean Corpuscular Hemoglobin 31.1 pg (25.0-34.0); Mean Corpuscular Hgb Conc 31.5 g/dL (32.0-36.0); Mean Corpuscular Volume 98.5 fL (80.0-100.0); Mean Platelet Volume 9.4 fL (9.4-12.4); Monocytes # (auto) 1.21 K/uL (0.11-0.59); Monocytes % (auto) 14.2 %; Neutrophils # (auto) 5.93 K/uL (1.40-6.50); Neutrophils % (auto) 69.5 %; Platelet Count 191 K/uL (130-400); RDW Coefficient of Variation 15.1 % (11.5-14.5); RDW Standard Deviation 54.9 fL (36.4-46.3); Red Blood Count 3.38 M/uL (4.20-5.40); White Blood Count 8.52 K/ul (4.8-10.8)
[2024-03-28 13:37] LABS: Alanine Aminotransferase 32 U/L (7-52); Albumin Level 2.7 gm/dl (3.4-5.0); Alkaline Phosphatase 67 U/L (34-104); Anion Gap 7 (3-11); Aspartate Aminotransferase 57 U/L (13-39); BUN Creatinine Ratio 19.3 (10-20); Bilirubin,Total 1.7 mg/dl (0.2-1.0); Blood Urea Nitrogen 11 mg/dl (6-23); Calcium 8.2 mg/dl (8.6-10.3); Carbon Dioxide 24 mmol/L (21-32); Chloride 102 mmol/L (98-107); Globulin 2.6 gm/dl (2.5-4.0); Glucose 80 mg/dl (70-99(Fasting)); Sodium 133 mmol/L (136-145); Total Protein 5.3 gm/dl (6.0-8.3)
[2024-03-28 13:56] LABS: Partial Thromboplastin Ratio 0.8; Partial Thromboplastin Time 22 Seconds (21-31)
[2024-03-28] MEDS: FUROSEMIDE INJ 20 MG/2 ML VIAL IV ONE (15:25)
[2024-03-28 15:51] LABS: Appearance Urine Cloudy (Clear); Bacteria Urine Automated 4+ (None Seen); Bilirubin Urine Negative (Negative); Blood Urine 2+ (Negative); Cast Urine Automated 0-2 /lpf (0-2); Color Urine Yellow; Glucose Urine UA Negative (Negative); Ketones Urine Negative (Negative); Leukocyte Esterase Urine 2+ (Negative); Nitrite Urine Negative (Negative); Protein Urine Negative (Negative); Specific Gravity Urine 1.009 (1.000-1.030); Urobilinogen Urine Negative (Negative); WBC Urine Automated 21-50 /hpf (0-5); pH Urine 6.5 (4.5-7.5)
[2024-03-28 16:13] LABS: Troponin I High Sensitivity 7.3 pg/ml (0-14)
[2024-03-28 16:22] LABS: Thyroid Stimulating Hormone 6.027 uIu/ml (0.300-4.500)
--- NOTE | 2024-03-28 16:24 | Electrocardiogram Report ---
Test Reason : Blood Pressure : */* mmHG Vent. Rate : 89 BPM Atrial Rate : 89 BPM P-R Int : 142 ms QRS Dur : 86 ms QT Int : 362 ms P-R-T Axes : -9 18 17 degrees QTcB Int : 440 ms Poor data quality, interpretation may be adversely affected Normal sinus rhythm Poor R wave progression, consider anterior CO vs. lead placement vs. LVH Abnormal ECG When compared with ECG of 19-Mar-2024 06:05, No significant change Confirmed by Raj Tapia ([id number]) on 03/28/2024 4:23:59 PM Referred By: Confirmed By: Raj Tapia
--- NOTE | 2024-03-28 16:34 | History & Physical Report ---
Date of Service March 28, 2024 Assessment & Plan (1) Acute on chronic heart failure with preserved ejection fraction (HFpEF): (2) Chronic hyponatremia: (3) Ambulatory dysfunction: (4) Hypocalcemia: (5) Elevated LFTs: (6) Bilateral lower leg cellulitis: Plan This is a 73-year-old female who has a significant past medical history of HTN, HLD, age-related osteoporosis, history of breast cancer and elevated liver enzymes who presents to ED secondary to bilateral leg swelling and abdominal swelling x 1 week. patient recently hospitalized 03/17 to 03/23 secondary to profound anemia in setting of vaginal bleeding requiring a D&C and myomectomy. During hospitalization she required 5 units of PRBC as well as IV fluid resuscitation in setting of acute on chronic hyponatremia. She was net + 15.7k Liters; however outputs not accurately documented She presents to ED today up 22 pounds from her baseline of 140 pounds with associated bilateral lower extremity redness and possible UTI. Hypervolemia likely multifactorial in setting of acute on chronic HFpEF and hypoalbuminemia admit to PCU IV Lasix 20 mg twice daily, strict I's and O's with Ritter catheter remove Ritter catheter once patient more ambulatory Daily weights, heart healthy and low-sodium diet obtain echocardiogram, last done in 2015 which revealed a preserved EF and grade 1 diastolic dysfunction, no evidence of valvular heart disease at that time consult cardiology to assist with diuresis Possible BLE Cellulitis she is afebrile and wbc WNL but with significant redness to b/l pretibial surfaces and streaking proximally on RLE, add on empiric IV rocephin, vanco + probiotic, wound care Possible UTI: abnormal UA, last urine culture grew multi skin torri, pt is asymptomatic, continue IV Rocephin, await urine culture Hypocalcemia: in setting of volume overload/IVF shortage will place on os yaima BID, obtain ionized Ca in a.m. Hypoalbuminemia: consult nutrition to assist to protein intake Ambulatory dysfxn 2/2 excess volume: PT/OT Chronic Hyponatremia: last admission Na down to 119, nephro on board, lis inopril/HCTZ discontinued, monitor Na closely Chronically elevated LFTS: total bili 1.7, ast 57, obtain direct bili. no abd pain, repeat in a.m. DVT ppx: given recent profound anemia will hold on chemical ppx for now, will also avoid SCDs due to cellulitis, consider chemical ppx in 24hrs if no vaginal bleeding and hgb remains stable FULL CODE PCP:Tara Dispo: admit to PCU, PT/OT consulted Pt was seen and examined in collaboration with Dr. Honeycutt, please see addendum I spent a total of 78 minutes reviewing notes, outpatient records, labs, medication, coordinating, documenting and providing care for this patient excluding time spent in the performance of separately billed services. History of Present Illness Chief Complaint: bilateral leg swelling and abdominal swelling x 1 week. Primary Care Provider: Kenny Pacheco, This is a 73-year-old female who has a significant past medical history of HTN, HLD, age-related osteoporosis, history of breast cancer and elevated liver enzymes who presents to ED secondary to bilateral leg swelling and abdominal swelling x 1 week. Of significance patient was recently hospitalized 03/17 to 03/23 secondary to vaginal bleeding and profound anemia. On day of admission she was found to have a hemoglobin of 6.6 in which 1 week prior hemoglobin was 12.4. During her entire hospitalization she had 5 units of packed PRBCs. AIR TECHNICIAN was consulted and patient underwent DC and see with myomectomy on 03/22/2024. She was also started on norethindrone as per recommendation by gynecology. After undergoing her D&C she had minimal bleeding. Her hospital course was complicated by hyponatremia in which nephrology was assisting on managing. At that time she was on HCTZ and this was discontinued. She further received IV fluids. Upon discharge patient noticed significant increase in her lower extremity swelling as well as swelling in her abdomen. This cause difficulty with her mobility and required her sister to assist her even to just get out of bed. She reports her baseline weight is approximately 140 pounds and she is now up to 162. She denies any fever, chills, sweats, lightheadedness, dizziness, chest pain, shortness of breath, HERNANDEZ, nausea, vomiting or abdominal pain. She further denies any vaginal bleeding, dysuria, increased urgency or frequency with urination. In ED patient remained hemodynamically stable. Her sodium was stable at 133. Her BUN and creatinine was stable at 11 and .57. Her UA was concerning for possible infection. Her chest x-ray was negative for any acute cardiopulmonary abnormality. A Ritter catheter was placed due to her limited mobility. She received 20 mg of IV Lasix and thus far is put out 600 mL of urine output. Allergies Allergy/AdvReac Type Severity Reaction Status Date / Time hydrochlorothiazide AdvReac Intermediate Unknown Verified 03/22/24 14:24 Home Medications Medication Instructions Recorded Confirmed Type simvastatin 40 mg tablet 40 mg PO QPM #0 tabs 03/11/17 03/28/24 History gabapentin 300 mg capsule 300 mg PO HS #30 caps 03/15/24 03/28/24 Rx calcium 500 mg (as 1 tab PO BID #60 tabs 03/23/24 03/28/24 Rx carbonate)-vitamin D3 10 mcg (400 unit) tablet (Calcium 500 + D) magnesium chloride 64 mg 128 mg (2 x 64 mg) PO BID #60 tabs 03/23/24 03/28/24 Rx (magnesium chloride) tablet,delayed release (Mag 64) norethindrone acetate 5 mg tablet 10 mg (2 x 5 mg) PO TID 10 days 03/23/2403/14 Rx #60 tabs Past Med/Surg History Problem List (Updated 03/28/24 @ 16:40 by Kriss Jose PA-C) Bilateral lower leg cellulitis Elevated LFTs Hypocalcemia Ambulatory dysfunction Acute on chronic heart failure with preserved ejection fraction (HFpEF) Severe anemia Chronic hyponatremia Post-menopausal bleeding Encounter for pre-operative examination Spondylolisthesis, lumbar region Lumbosacral spondylosis Degenerative joint disease (DJD) of lumbar spine Scoliosis of lumbar region due to degenerative disease of spine in adult COVID-19 (Acute) 02/28/24 Sacroiliitis Pneumonia (Acute) 04/21/16 Cancer of central portion of right female breast (Acute) "Palpable mass found on physical examination Status post mammography and ultrasound Status post core needle biopsy 09/17/2016 Invasive carcinoma Estrogen receptor negative, progesterone receptor negative and HER-2/agustin negative. 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 ypT1c ypN0 M0 G3 " Hypertension (Chronic) Medical History Spondylolisthesis, lumbar region Scoliosis of lumbar region due to degenerative disease of spine in adult Sacroiliitis Postural dizziness hx, found to have a recent UTI 02/28/24; no current symptoms History of pneumonia 2016, no recent issues Lumbosacral spondylosis Degenerative joint disease (DJD) of lumbar spine Hx of recurrent urinary tract infection most recent 02/28/24, no further symptoms Lumbosacral spondylosis History of COVID-19 02/28/24, asymptomatic>resolved Hx of breast cancer dx 2017, right breast mastectomy>no limb restriction Hypertension Hyperlipidemia Surgical History Post-operative state History of bilateral tubal ligation Hx of colonoscopy Hx of eye surgery age 4 Hx of tonsillectomy Hx of right mastectomy no limb restriction Family History Family/Other Breast cancer Herself Mother Myocardial infarction Denies family history of Ovarian cancer Colorectal cancer Social History Smoking Status: Never smoker Tobacco Type: Cigarettes Second Hand Exposure: No; Do You Dip or Chew Tobacco: No; Tobacco Cessation Education Requested by Patient: No Hx Alcohol Use: No Hx Substance Use: No Preferred Language: Stateless Communication Ability: Effective Visual Impairment: No Limitations Transcriber Required: No Beliefs That Will Affect Care: None Current Living Situation: Other Current Living Situation Comment: lives with sister Other Information That Helps Us Care for You: No Feels Safe at Home: Yes Safety Concerns: Feels Safe At This Time Assistive Devices: Cane Review of Systems Review of Systems: All systems reviewed & are unremarkable except as noted in HPI & below Physical Exam Physical Exam: Constitutional: WD/WN, vitals as above, NAD, sitting up in bed, pleasant, conversing easily Head: Normocephalic, Atraumatic Eyes: PERRL, conjunctivae normal, anicteric sclerae ENMT: external ear and nose normal, oropharynx normal Neck: trachea midline, no thyromegaly normal visual inspection Respiratory: normal respiratory effort, lungs clear to auscultation, no wheeze, rales, rhonchi. Normal insp/exp effort, no accessory muscle use Cardiovascular: RRR, no murmur, +3 lower ext edema extending proximally to thighs and abd, b/l erythematous pretibial surfaces with streaking to R proximal thigh, R pretibial blood bulla noted Vessels: no JVD or carotid bruit Chest: normal inspection of chest Abdomen: normal bowel sounds, soft, nontender, no hepatosplenomegaly Musculoskeletal: no cyanosis or clubbing Skin: no rashes, warm and dry normal turgor Neurologic: PERRL, EOMI, accommodation nl, no face palsy, no dysarthria CN's II-XI intact bilaterally and moves all extremities Psychiatric: A+Ox3, euthymic affect : -600ml UOP in ritter cath yellow urine Results & Data Results & Data Vital Signs (Past 12 Hours) Vital Signs Temp Pulse Pulse Resp BP BP Pulse Ox 03/28/24 14:00 80 22 145/79 H 03/28/24 13:18 84 20 143/71 H 98 03/28/24 12:21 36.5 C 89 18 136/81 98 O2 Del Method 03/28/24 14:00 03/28/24 13:18 Room Air 03/28/24 12:21 Room Air Laboratory Results I have independently reviewed and interpreted patient's admitting labs including CBC, CMP, bnp, tsh, ua, mag and troponin. Diagnostic Findings Chest X-Ray 03/28/24 12:27 XR chest 1V not portable CLINICAL HISTORY: fluid overload COMPARISON STUDY: Chest CT April 21, 2016. Chest radiograph February 28, 2024. FINDINGS: Multiple old, healed right-sided rib fractures are incidentally noted. Lung volumes are normal. There is no consolidation. Linear left basilar densities favor atelectasis. There is no pneumothorax or pleural effusion. Cardiac size is normal. Mediastinal contours are normal. There is no evidence for pulmonary edema. IMPRESSION: No acute cardiopulmonary findings. No significant change in appearance of the chest. ACT 112: Negative or not required by law. Electronically signed by: Kingsley Moyer M.D. 03/28/2024 1:04 PM Medications Administered Medication List Discontinued Medications Furosemide (Furosemide Inj 20 Mg/2 Ml Vial) 20 mg IV ONE ONE Stop: 03/28/24 14:54 Last Admin: 03/28/24 15:25 Dose: 20 mg Documented By: MSG ECG Additional Comments: I have independently reviewed and interpreted patient's admitting EKG which revealed: NSR 89 bpm, qtc 440ms COVID-19 Results Results COVID-19 Adm Lab Results: RBC 3.38 M/uL (4.20-5.40) L 03/28/24 WBC 8.52 K/ul (4.8-10.8) 03/28/24 Hgb 10.5 g/dl (12.0-16.0) L 03/28/24 Hct 33.3 % (37.0-47.0) L 03/28/24 Plt Count 191 K/uL (130-400) 03/28/24 Neutrophils (%) (Auto) 69.5 % 03/28/24 Lymphocytes (%) (Auto) 14.7 % 03/28/24 Monocytes # (Auto) 1.21 K/uL (0.11-0.59) H 03/28/24 Eosinophils # (Auto) 0.03 K/uL (0.00-0.50) 03/28/24 Immature Granulocyte % (Auto) 0.5 % 03/28/24 Neutrophils # (Auto) 5.93 K/uL (1.40-6.50) 03/28/24 Lymphocytes # (Auto) 1.25 K/uL (1.20-3.40) 03/28/24 Monocytes # (Auto) 1.21 K/uL (0.11-0.59) H 03/28/24 Eosinophils # (Auto) 0.03 K/uL (0.00-0.50) 03/28/24 Basophils # (Auto) 0.06 K/uL (0.00-0.20) 03/28/24 Immature Granulocyte # (Auto) 0.04 K/uL (0.01-0.20) 4 Na 133 mmol/L (136-145) L 03/28/24 K 4.0 mmol/L (3.5-5.1) 03/28/24 Cl 102 mmol/L (98-107) 03/28/24 CO2 24 mmol/L (21-32) 03/28/24 Anion Gap 7 (3-11) 03/28/24 BUN 11 mg/dl (6-23) 03/28/24 Creatinine 0.57 mg/dl (0.6-1.2) L 03/28/24 BUN/Creatinine Ratio 19.3 (10-20) 03/28/24 Glucose Level 80 mg/dl (70-99(Fasting)) 03/28/24 Ca 8.2 mg/dl (8.6-10.3) L 03/28/24 Total Bilirubin 1.7 mg/dl (0.2-1.0) H 03/28/24 Direct Bilirubin 0.5 mg/dl (0-0.2) H 03/28/24 AST/SGOT 57 U/L (13-39) H 03/28/24 ALT/SGPT 32 U/L (7-52) 03/28/24 Alkaline Phosphatase 67 U/L (34-104) 03/28/24 Total Protein 5.3 gm/dl (6.0-8.3) L 03/28/24 Albumin 2.7 gm/dl (3.4-5.0) L 03/28/24 Globulin 2.6 gm/dl (2.5-4.0) 03/28/24 Albumin/Globulin Ratio 1.0 (0.9-2) 03/28/24 PTT 22 Seconds (21-31) 03/28/24 Chest X-Ray 03/28/24 Code Status & VTE Plan Code Status FULL CODE VTE Prophylaxis Plan VTE Prophylaxis will be ordered: Yes Supervising Physician Co-Signing Physician Notes Ratna Segura is a 73-year-old female with HTN, HLD, Osteoporosis, history of breast cancer and elevated liver enzymes who presents with severe bilateral leg swelling, abdominal swelling, wt gain and leg pain x 1 week. She was given Lasix. Her BNP was not elevated and CXR was clear. Her albumin is quite low. She denies chest pain, shortness of breath, HERNANDEZ or orthopnea. General- adult female seen at bedside. She has a chronic ill appearance. Her sister and nursing is present at bedside Head- atraumatic Eyes- PERRL, EOMI, anicteric ENT- oropharynx clear Neck- supple, trace JVD, no adenopathy, no thyromegaly; Lungs- diminished BS in her bases otherwise clear to auscultation and percussion Heart- regular rhythm; no gallop, no rub appreciated Abdomen- normal bowel sounds, soft, nontender, mildly distended no masses or hepatosplenomegaly Extremities- 3+ edema, no calf tenderness; anasarca picture. Venous stasis with oozing. + erythema and calor B/L LEs Neuro- alert, oriented x 3; PERRL, EOMI; no facial palsy; no dysarthria; motor 5/5 bilaterally; Chart and data reviewed. I agree with the assessment and plan per the IDALIA. Monitor electrolytes. Check echo. Nutrition eval. May need albumin. A total of 34 minutes spent in the care coordination of this patient.
[2024-03-28 17:01] LABS: T4 Free Thyroxine 1.02 ng/dl (0.61-1.60)
[2024-03-28] MEDS: cefTRIAXone SODIUM 2,000 MG/50 ML BAG IV SCH (18:21)
[2024-03-28] MEDS: Patient's HEIGHT &/or WEIGHT Needed SCH (18:22)
[2024-03-28] MEDS ORDERED: ONDANSETRON INJ 2 MG/ML 2 ML VIAL IV PRN (18:45)
[2024-03-28] MEDS ORDERED: POLYETHYLENE (MIRALAX) 17 GM PACK PO PRN (18:45)
[2024-03-28] MEDS ORDERED: ACETAMINOPHEN 325 MG TAB PO PRN (18:45)
[2024-03-28] MEDS ORDERED: FAMOTIDINE 20 MG TAB PO PRN (18:45)
[2024-03-28] MEDS ORDERED: VANCOMYCIN CONSULT ACTIVE PRN (19:10)
[2024-03-28] MEDS: VANCOMYCIN HCL 1,750 MG in SODIUM CHLORIDE 0.9% 500 ML IV ONE (20:11)
[2024-03-28] MEDS: POTASSIUM CHLORIDE CRTAB 20 MEQ TABCR PO SCH (20:11)
[2024-03-28] MEDS: NORETHINDRONE 5 MG TAB PO SCH (20:12)
[2024-03-28] MEDS: MELATONIN 3 MG TAB PO PRN (20:12)
[2024-03-28] MEDS: MAGNESIUM CHLORIDE W/CALCIUM 64MG DELAYED REL TAB PO SCH (20:14)
[2024-03-28] MEDS: SIMVASTATIN 40 MG TAB PO SCH (20:14)
[2024-03-28] MEDS: CALCIUM CARBONATE 1250MG TAB PO SCH (20:15)
[2024-03-28] MEDS: GABAPENTIN 300 MG CAP PO SCH (20:15)
--- OUTSIDE RECORDS SUMMARY | 2024-03-28 20:40 | External Medical Summary | Summary of Care ---
Author Name Unknown Organization [facility] Address [address] [place] [address] Phone [phone] Care Team Providers Care Stenographer Secretary Name Role Phone DannyKenny rueda Primary Care Provider [phone] Encounter Details Date Type Department Care Team (Late st Contact Info) Description 03/18/2024 Result Scan Unspecified Department <No scans attached> Allergies No known active allergiesdocumented as of this encounter (statuses as of 03/28/2024) Medications Medication Sig Dispensed Refills Start Date End Date Status Simvastatin 40 MG Oral Tablet (Zocor)Indications: Dyslipidemia TAKE 1 TABLET BY MOUTH AT BEDTIME 90 Tablet 3 07/19/2023 Active Lisinopril-hydroCHL OROthiazide 20-25 MG Oral TabletIndications:H TN, goal below 140/90 TAKE 1 TABLET BY MOUTH EVERY DAY 90 Tablet 1 10/22/2023 Active Additional Information Patient not taking.Reported on 03/27/2024 Gabapentin 100 MG Oral Capsule (Neurontin) .COMPLEX 02/22/2024 Active Ibuprofen 400 MG Oral Tablet (Motrin) 1 Tablet. 02/22/2024 Active documented as of this encounter (statuses as of 03/28/2024) Active Problems Problem Noted Date Diagnosed Date Lumbar degenerative disc disease 03/10/2024 Elevated liver enzymes 03/10/2024 Hx of nonmelanoma skin cancer 02/04/2023 Overview: BCC R forehead 02/2022 Age-related osteoporosis wit hout current pathological fracture 08/11/2022 Hyperlipidemia, unspecified 12/20/2019 History of breast cancer 04/11/2018 Hx of atypical nevus 09/16/2016 HTN, goal below 140/90 documented as of this encounter (statuses as of 03/28/2024) Resolved Problems Problem Noted Date Diagnosed Date Resolved Date Breast cancer, right 05/03/2017 018 Need for prophylactic measure 10/30/2016 12/20/2019 Malignant neoplasm of right female breast 10/29/2016 04/11/2018 Malignant neoplasm of female breast 10/05/2016 04/11/2018 Encounter for antineoplastic chemotherapy 10/05/2016 12/20/2019 Abnormal results of liver function studies 02/16/2010 12/20/2019 Family history of diabetes mellitus 02/03/2010 12/20/2019 Dyslipidemia, goal to be determined 07/25/2014 Other allergic rhinitis 01/2020 Overview: ICD-10 update of inactive term documented as of this encounter (statuses as of 03/28/2024) Immunizations Name Administration Dates Next Due COVID-19 mRNA, LNP-s, No Pre serve, 2-Dose Series (Pfizer) 09/21/2021,03/26/2021,09/02/2020,08/14 Pneumococcal Conjugate Vacc, 13 Valent (Prevnar) 07/25/2014 Pneumococcal Polysaccharide PPV23 (Pneumovax) 08/01/2015 Season Influenza, Quad, PF, Adjuvanted, 65+ Yrs, IM (FLUAD) 03/06/2021 Seasonal Influenza Vac., MDV , IM, 0.5 mL (Fluzone) 02/07/2020,03/14/2013,06/01/2012 Seasonal Influenza, High Dos e, Trivalent, PF, IM (Fluzone HD) 05/12/2019,03/16/2018 Seasonal Influenza, Quadriva lent Hd (Fluzone Hd) 02/13/2022 TDAP (age 10 and older)(Boostrix) 05/01/2021, Varicella Zoster Vaccine (Adult) 06/24/2012 Zoster Vaccine Recombinant (Shingrix) 04/21/2020 ,12/31/2019 documented as of this encounter Social History Tobacco Use Types Packs/Day Years Used Date Smoking Tobacco: Former Cigarettes 0.3 25 1 968 - 06/14/1992 Smokeless Tobacco: Never Alcohol Use Standard Drinks/Week Comments Yes 0 (1 standard drink = 0.6 oz pur e alcohol) 2-3 drinks/day PHQ-2 Answer Date Recorded PHQ Adult Total Score 0 03/29/2023 Hunger Vital Sign Answer Date Recorded Within the past 12 months, y ou worried that your food would run out before you got the money to buy more. Never true 03/29/20 23 Within the past 12 months, t he food you bought just didn't last and you didn't have money to get more. Never true 03/29/2023 Childcare Answer Date Recorded Do you feel overwhelmed with taking care of a child, family member or friend? No 03/29/2023 Does your family need help f inding childcare? (Household - for ages 0-17 years) Not on file 03/29/2023 Clothing Answer Date Recorded Have you been unable to get clothing when it was really needed? No 03/29/2023 Is your family able to get c lothes or diapers when needed? (Household - for ages 0-17 years) Not on file 03/29/2023 Personal Safety Answer Date Recorded Do you feel unsafe or have concerns for your saf ety? No 03/29/2023 Do you have concerns for you r family's safety? (Household - for ages 0-17 years) Not on file 03/29/2023 Utilities Answer Date Recorded Do you have trouble paying y our heating, water, or electric bill? No 03/29/2023 Is your family able to pay t he heat, water, or electric bill? (Household - for ages 0-17 years) Not on file 03/29/2023 Does your family have access to good internet? (Household - for ages 0-17 years) Not on file 03/29/2023 Employment Status Answer Date Recorded Are you unemployed or without regular income? No 03/29/2023 Does the household have a re gular source of income? (Household - for ages 0-17 years) Not on file 03/29/2023 Social Connections Answer Date Recorded How often do you feel lonely or isolated from th ose around you? Rarely 03/29/2023 Financial Resource Strain Answer Date R ecorded Do you have any trouble payi ng for your medications, or do you think you might in the future? No 03/29/2023 Does your family have troubl e paying for medicine? (Household - for ages 0-17 years) Not on file 03/29/2023 Transportation Needs Answer Date Record ed READ ONLY Do you have troubl e getting a ride to medical visits or work? Never True 03/29/2023 Does your family have a hard time getting a ride to doctors visits? (Household - for ages 0-17 years) Not on file 03/29/2023 Has lack of transportation k ept you from medical appointments, meetings, work, or from getting things needed for daily living? Check all that apply. (Adult - for ages 18 years and over) Not on file 03/29/2023 Do you (or your family) have trouble finding or paying for a ride (transportation)? (Household - for ages 0-17 years) Not on file 03/29/2023 Housing Stability Answer Date Recorded Do you currently live in a s helter or have no steady place to sleep at night? No 03/29/2023 READ ONLY Do you think you a re at risk of becoming homeless? No 03/29/2023 Does your family worry about paying for your home or becoming homeless? (Household - for ages 0-17 years) Not on file 1 Are you homeless or worried that you might be in the future? (Adult - for ages 18 years and over) Not on file Are you (or your family) srinivas eless or worried that you might be in the future? (Household - for ages 0-17 years) Not on file Food Insecurity Answer Date Recorded Do you need food for this week? No 03/29/2023 Are you able to get enough f ood for your family? (Household - for ages 0-17 years) Not on file 03/29/2023 Does your family need food t his week? (Household - for ages 0-17 years) Not on file 03/29/2023 Do you always have enough fo od for your family? (Household - for ages 0-17 years) Not on file 03/29/2023 Sex and Gender Information Value Date Recorded Sex Assigned at Female 02/13/2022 10:19 AM EDT Gender Identity Female 02/13/2022 10:19 AM EDT Sexual Orientation Straight 02/13/2022 10 :19 AM EDT Job Start Date Occupation Industry Not on file Not on file Not on file documented as of this encounter Plan of Treatment Upcoming Encounters Date Type Department Care Team (Late st Contact Info) Description 03/28/2024 11:40 AM EDT Office Visit [facility] [address] [place] [address] Cristina Pride MD [address] [place] [address] 03/29/2024 11:00 AM EDT Office Visit [facility] [address] [place] [address] Kenny Pacheco, DO [address] [facility] [place] [address] 09/29/2024 10:20 AM EDT Office Visit [facility] [address] [place] [address] Kenny Pacheco, DO [address] [facility] [place] [address] Scheduled Procedures Name Priority Associated Diagnoses Date/Ti me COLONOSCOPY FLEXIBLE PROXIMAL DIAGNOSTIC Recall History of colon polyps Health Maintenance Due Date Last Done Comments Adult Wellness Visit 2014 COVID-19 Vaccine ( season) 2024 03/08/2023, 03/17/2022, 09/21/2021, Additional history exists *BISPHONATE OR OTHER ACCEPTABLE MEDICATION NEEDED FOR OSTEOPOROSIS (REFER TO SMARTSET #1146) 03/13/2024 Depression Screening 03/29/2024 03/29/2023 GFR 04/19/2024 04/19/2023, 05/14, 02/13/2022, Additional history exists DXA Scan 05/14/2024 05/14/2022, 06/2021, 09/30/2015, Additional history exists Albumin/Creatinine Ratio 02/17/2025 02/17/2022 Colonoscopy 04/17/2025 04/17/2020, 09/2019, 11/27/2010 DTap/Tdap Vaccines (4 - Td or Tdap) 05/01/2031 05/01/2021, 05/28/2010, 02/08/2010, Additional history exists Pneumococcal Vaccine: 65+ Years Completed 08/01/2015, 07/25/2014 Hepatitis C Screening Completed 04/29/2017, 013 RETIRED - COLONOSCOPY-EVERY 5 YRS AGES 18-100 Discontinued 04/17/2020, 04/17/2020, 11/27/2010 Zoster Vaccines Completed 04/21/2020, 12/12, 06/24/2012 VITAMIN D LEVEL ONCE IN A LIFETIME-USE SMARTSET# 98102 Completed 04/19/2023, 09/09/2022, 05/25/2022 Influenza Vaccine (FLU shot) Completed 02/17/2024, 02/12/2023, 02/13/2022, Additional history exists HPV (Gardasil) Vaccine Aged Out No lo nger eligible based on patient's age to complete this topic Hepatitis B Vaccine Aged Out No longe r eligible based on patient's age to complete this topic MENINGOCOCCAL (MENACTRA/MENVEO) Aged Out No longer eligible based on patient's age to complete this topic documented as of this encounter Medical Devices Implanted Type Area Dancing Teacher Device Identifier Shelf Expiration Date Model / Serial / Lot Port Power Mri W/8fr Cath - [id number] Implanted:Qty: 1 on 10/07/2016 by Judith Barrios MD at OR [facility] Left: Subclavian CR BARD : PERIPHERAL VASCULAR 01/11/2018 [id number] / / [id number] Natrelle 500cc Assembler Trim Implanted:Qty: 1 on 05/03/2017 by Jacoby Goyal MD at OR [facility] Right: Breast ALLERGAN 04/12/2019 133MV-14 / [id number] / [id number] Smooth Round Moderate Profile Breast Implant Implanted:Qty: 1 on 10/21/2017 at OR [facility] Right: Breast ALLERGAN 07/29/2022 SRM-445 / [id number] / [id number] documented as of this encounter Procedures Procedure Name Priority Date/Time Associated Diagnosis Comments RADIOLOGY SCANNED RESULT 03/18/2024 documented in this encounter Results * RADIOLOGY SCANNED RESULT (03/18/2024) 03/18/2024 No Physician Data Unknown DIAGNOSTIC RAD IOLOGY SERVICES documented in this encounter Advance Directives * Full Code (Latest Code Status on File) Date Activated Date Inactivated Comments 05/03/2017 9:55 AM 05/04/2017 2:39 PM This order reflects the patients wishes and were consensually agreed upon. Care Teams Stenographer Secretary Relationship Specialty Start Date End Date Kenny Pacheco DO [address] [place] [address] PCP - General Family Medicine 04/08/21 documented as of this encounter
--- OUTSIDE RECORDS SUMMARY | 2024-03-28 20:40 | External Medical Summary | Summary of Care ---
Author Name Unknown Organization [facility] Address [address] [place] [address] Phone [phone] Care Team Providers Care Asset Protection Greeter Name Role Phone Kenny Pacheco DO Primary Care Provider [phone] Reason for Referral * Evaluate & Treat - Unlimited Visits (Within 3 days (urgent)) - Authorized Specialty Diagnoses / Procedures Referred By Jersey aguilera Referred To Contact Cargo Operations Agent Diagnoses Post-menopausal bleeding Nina Redd [facility] Drywall Hanger Framer [address] [place] [address] Referral ID Status Reason Start Date Expiration Date Visits Requested Visits Authorized [id number] Authorized Specialty Services Required 4 [phone] Question Answer Referral Priority Within 3 days (urgent) Where should this appointment be scheduled? [facility] Program Type Case Management Complex Case Management [facility] Health Device(s) Requested Other (See Comment) Comments Primary Cargo Operations Agent: Nina Prince at Home patient: No Is the patient already enrolled with another [facility] device/service? (If no, will need to "push the button") No Does the patient have a physical address? (If no, provide physical address if requesting device) Yes Requested Devices/IVR: IVR Non complex mikel Start date: 04/03/24 How many weeks: 3 If want time other than 9am, note time here: Reason for Visit * Reason Comments [facility] Care Coordination Services Encounter Details Date Type Department Care Team (Late st Contact Info) Description 03/27/2024 Documentation Care Coordination and Integration [address] [place] [address] Nina Redd [facility] Drywall Hanger Framer [address] [place] [address] Post-menopausal bleeding* Allergies No known active allergiesdocumented as of this encounter (statuses as of 03/27/2024) Medications Medication Sig Dispensed Refills Start Date [...] Oral Tablet (Motrin) 1 Tablet. 02/22/2024 Active Calcium Carb-Cholecalcifero l 500-10 MG-MCG Oral Tablet Take 1 Tablet by mouth once. 03/23/2024 Active Magnesium Cl-Calcium Carbonate 71.5-119 MG Oral Tablet Delayed Release Take 128 mg by mouth once. 03/23/2024 Active Norethindrone Acetate 5 MG Oral Tablet Take 2 Tablets by mouth in the morning and 2 Tablets at noon and 2 Tablets in the evening. 03/23/2024 Active documented as of this encounter (statuses as of 03/27/2024) Active Problems Problem Noted Date Diagnosed Date Lumbar degenerative disc disease 03/10/2024 Elevated liver enzymes 03/10/2024 Hx of nonmelanoma skin cancer 02/04/2023 Overview: BCC R forehead 02/2022 Age-related osteoporosis wit hout current pathological fracture 08/11/2022 Hyperlipidemia, unspecified 12/20/2019 History of breast cancer 04/11/2018 Hx of atypical nevus 09/16/2016 HTN, goal below 140/90 documented as of this encounter (statuses as of 03/27/2024) Resolved Problems Problem Noted Date Diagnosed Date [...] as of this encounter (statuses as of 03/27/2024) Immunizations Name Administration Dates Next Due COVID-19 mRNA, LNP-s, No Pre serve, 2-Dose Series (PlaySay) 09/21/2021,03/26/2021,09/02/2020,08/14 Pneumococcal Conjugate Vacc, 13 Valent (Prevnar) [...] on file documented as of this encounter Progress Notes * Nina Redd, [facility] Drywall Hanger Framer - 03/27/2024 3:18 PM EDT Please Enroll in NON-COMPLEX [facility]KEL IVR weekly x 3 weeks. Begin calls the week of 04/03/24. Thank you PCP: Dr Kenny Pacheco Dx: Post menopausal bleeding CTN: [phone] Electronically signed by Nina Redd [facility] Drywall Hanger Framer at 03/27/2024 3:24 PM EDT documented in this encounter Plan of Treatment Upcoming Encounters Date Type Department Care Team (Late st Contact Info) Description 03/28/2024 11:40 AM EDT Office Visit [facility] [address] [facility] [place] [address] Cristina Pride MD [address] [place] [address] 03/29/2024 11:00 AM EDT Office Visit [facility] [address] [place] [address] Kenny Pacheco, DO [address] [facility] [place] [address] 09/29/2024 10:20 AM EDT Office Visit [facility] [address] [place] [address] Kenny Pacheco, DO [address] [place] [address] Scheduled Procedures Name Priority Associated Diagnoses Date/Ti me COLONOSCOPY FLEXIBLE PROXIMAL DIAGNOSTIC Recall History of colon polyps Scheduled Referrals Name Type Priority Associated Diagnoses Orde r Schedule REMOTE PATIENT MONITORING REFERRAL Referral Within 3 days (urgent) Post-menopausal bleeding Ordered: 03/27/2024 Health Maintenance Due Date Last Done Comments [...] D LEVEL ONCE IN A LIFETIME-USE SMARTSET# 56941 Completed 04/19/2023, 09/09/2022, 05/25/2022 Influenza Vaccine (FLU [...] this encounter Medical Devices Implanted Type Area Boom Master Device Identifier Shelf Expiration Date Model / Serial / Lot Port Power Mri W/8fr Cath - [id number] Implanted:Qty: 1 on 10/07/2016 by Judith Barrios MD at OR [facility] Left: Subclavian CR BARD : PERIPHERAL VASCULAR 01/11/2018 [id number] / / [id number] Natrelle 500cc Pipe Organ Installer Implanted:Qty: 1 on 05/03/2017 by Jacoby Goyal MD at OR [facility] Right: Breast ALLERGAN 04/12/2019 133MV-14 / [id number] / [id number] Smooth Round Moderate Profile Breast Implant Implanted:Qty: 1 on 10/21/2017 at OR [facility] Right: Breast ALLERGAN 07/29/2022 [facility] / [id number] / [id number] documented as of this encounter Visit Diagnoses Diagnosis Post-menopausal bleeding- Primary Postmenopausal bleeding documented in this encounter Advance Directives * Full Code (Latest Code Status on File) Date Activated Date Inactivated Comments 05/03/2017 9:55 AM 05/04/2017 2:39 PM This order reflects the patients wishes and were consensually agreed upon. Care Teams Asset Protection Greeter Relationship Specialty Start Date End Date Kenny Pacheco DO [address] [place] [address] PCP - General Family Medicine 04/08/21 documented as of this encounter
--- OUTSIDE RECORDS SUMMARY | 2024-03-28 20:40 | External Medical Summary | Summary of Care ---
Author Name Unknown Organization [facility] Address [address] [place] [address] Phone [phone] Care Team Providers Care Asparagus Cutter Name Role Phone DannyKenny rueda Primary Care Provider [phone] Encounter Details Date Type Department Care Team (Late st Contact Info) Description 03/27/2024 Population Health External Data Unspecified Department Allergies No known active allergiesdocumented as of this encounter (statuses as of 03/27/2024) Medications Medication Sig Dispensed Refills Start Date End Date Status Simvastatin 40 MG Oral Tablet (Zocor)Indications:Dy slipidemia TAKE 1 TABLET BY MOUTH AT BEDTIME 90 Tablet 3 07/19/2023 Active Lisinopril-hydroCHLOR Othiazide 20-25 MG Oral TabletIndications:HTN , goal below 140/90 TAKE 1 TABLET BY MOUTH EVERY DAY 90 Tablet 1 10/22/2023 Active Gabapentin 100 MG Oral Capsule (Neurontin) .COMPLEX [...] mRNA, LNP-s, No Pre serve, 2-Dose Series (HTP) 09/21/2021,03/26/2021,09/02/2020,08/14 Pneumococcal Conjugate Vacc, 13 Valent (Prevnar) [...] Team (Late st Contact Info) Description 03/28/2024 12:45 PM EDT Office Visit [facility] [address] [facility] [place] [address] Ruben Hairston MD [address] [facility] [place] [address] 03/29/2024 11:00 AM EDT Office Visit [facility] [address] [facility] [place] [address] Kenny Pacheco, DO [address] [facility] [place] [address] 09/29/2024 10:20 AM EDT Office Visit [facility] [address] [place] [address] Kenny Pacheco, DO [address] [facility] [place] [address] Scheduled Procedures Name Priority Associated Diagnoses Date/Ti [...] D LEVEL ONCE IN A LIFETIME-USE SMARTSET# 22081 Completed 04/19/2023, 09/09/2022, 05/25/2022 Influenza Vaccine (FLU [...] this encounter Medical Devices Implanted Type Area Acid Leveler Device Identifier Shelf Expiration Date Model / Serial / Lot Port Power Mri W/8fr Cath - [id number] Implanted:Qty: 1 on 10/07/2016 by Judith Barrios MD at OR [facility] [address] Left: Subclavian CR BARD : PERIPHERAL VASCULAR 01/11/2018 [id number] / / [id number] Natrelle 500cc Software Licensing Executive Implanted:Qty: 1 on 05/03/2017 by Jacoby Goyal MD at OR [facility] Right: Breast ALLERGAN 04/12/2019 133MV-14 / [id number] / [id number] Smooth Round Moderate Profile Breast Implant Implanted:Qty: 1 on 10/21/2017 at OR [facility] Right: Breast ALLERGAN 07/29/2022 SRM-445 / [id number] / [id number] documented as of this encounter Advance Directives * Full Code (Latest Code Status on File) Date Activated Date Inactivated Comments 05/03/2017 9:55 AM 05/04/2017 2:39 PM This order reflects the patients wishes and were consensually agreed upon. Care Teams Asparagus Cutter Relationship Specialty Start Date End Date Kenny Pacheco DO [address] [place] [address] PCP - General Family Medicine 04/08/21 documented as of this encounter
--- OUTSIDE RECORDS SUMMARY | 2024-03-28 20:40 | External Medical Summary | Summary of Care ---
Author Name Unknown Organization [facility] Address [address] [place] [address] Phone [phone] Care Team Providers Care Cultural Anthropology Professor Name Role Phone Kenny Pacheco DO Primary Care Provider [phone] Reason for Visit * Reason Onset Date Comments Hospital Follow-Up 03/23/2024 Encounter Details Date Type Department Care Team (Late st Contact Info) Description 03/23/2024 Telephone General Internal Medicine State Edouard Spann [address] [facility] [place] [id number] Kenny Pacheco DO [address] [facility] [place] [id number] Hospital Follow-Up Allergies No known active allergiesdocumented as of this encounter (statuses as of 03/23/2024) Medications Medication Sig Dispensed Refills Start Date [...] as of this encounter (statuses as of 03/23/2024) Active Problems Problem Noted Date Diagnosed Date Lumbar degenerative disc disease 03/10/2024 Elevated liver enzymes 03/10/2024 Hx of nonmelanoma skin cancer 02/04/2023 Overview: BCC R forehead 02/2022 Age-related osteoporosis wit hout current pathological fracture 08/11/2022 Hyperlipidemia, unspecified 12/20/2019 History of breast cancer 04/11/2018 Hx of atypical nevus 09/16/2016 HTN, goal below 140/90 documented as of this encounter (statuses as of 03/23/2024) Resolved Problems Problem Noted Date Diagnosed Date [...] as of this encounter (statuses as of 03/23/2024) Immunizations Name Administration Dates Next Due COVID-19 mRNA, LNP-s, No Pre serve, 2-Dose Series (Magine) 09/21/2021,03/26/2021,09/02/2020,08/14 Pneumococcal Conjugate Vacc, 13 Valent (Prevnar) [...] on file documented as of this encounter Miscellaneous Notes * Telephone Encounter - Kenny Pacheco DO - 03/23/2024 2:57 PM EDT Will get first set on visit on 03/29. * Telephone Encounter - Bennie Dean RN - 03/23/2024 2:39 PM EDT Patient discharged 03/23/24 from [facility] after treatment for anemia, electrolyte abnormalities, postmenopausal bleeding. Patient received 4 uPRBCs while admitted, is s/p D+C. Nephrology recommends a BMP+ CBC weekly times 3 weeks, and if persistent hyponatremia, please refer pt to Nephrology. Patient has a follow up with Dr Pacheco on 03/29. Thank you documented in this encounter Plan of Treatment Upcoming Encounters Date Type Department Care Team (Late st Contact Info) Description 03/28/2024 12:45 PM EDT Office Visit Dermatology [facility] [place] [address] [place] [id number] Ruben Hairston MD [address] [place] [id number] 03/29/2024 11:00 AM EDT Office Visit [facility] [place] [address] [place] [id number] Kenny Pacheco DO [address] [place] [id number] 09/29/2024 10:20 AM EDT Office Visit [facility] [place] [address] [place] [address] Kenny Pacheco, DO [address] [facility] [place] [id number] Scheduled Procedures Name Priority Associated Diagnoses Date/Ti [...] D LEVEL ONCE IN A LIFETIME-USE SMARTSET# [id number] Completed 04/19/2023, 09/09/2022, 05/25/2022 Influenza Vaccine (FLU [...] this encounter Medical Devices Implanted Type Area Greenhouse Transplanter Device Identifier Shelf Expiration Date Model / Serial / Lot Port Power Mri W/8fr Cath - [id number] Implanted:Qty: 1 on 10/07/2016 by Judith Barrios MD at OR [facility] Left: Subclavian CR BARD : PERIPHERAL VASCULAR 01/11/2018 [id number] / / [id number] Natrelle 500cc Shale Planer Operator Implanted:Qty: 1 on 05/03/2017 by Jacoby Goyal MD at [place] [facility] Right: Breast ALLERGAN 04/12/2019 [id number] / [id number] / Srm [id number] Smooth Round Moderate Profile Breast Implant Implanted:Qty: 1 on 10/21/2017 at [place] [facility] Right: Breast ALLERGAN 07/29/2022 SRM-[id number] / [id number] / [id number] documented as of this encounter Advance Directives * Full Code (Latest Code Status on File) Date Activated Date Inactivated Comments 05/03/2017 9:55 AM 05/04/2017 2:39 PM This order reflects the patients wishes and were consensually agreed upon. Care Teams Cultural Anthropology Professor Relationship Specialty Start Date End Date Kenny Pacheco DO [address] [place] [address] PCP - General Family Medicine 04/08/21 documented as of this encounter
[2024-03-28 21:09] LABS: Magnesium 1.5 mg/dl (1.7-2.4)
--- NOTE | 2024-03-28 21:50 | Emergency Department Note ---
Impression & Plan Anasarca, Acute UTI (urinary tract infection) ED Provider Note NAME: CACHORRO MAR AGE: 73 SEX: Female INFORMANT: Patient and sister ED PROVIDER(S): Franklyn Florentino MD CHIEF COMPLAINT: Leg swelling PLAN: Disposition: Admitted Outpatient prescription management: none Referral: None MEDICAL DECISION MAKING: Patient presented with a 20 pound weight gain. She had anasarca on physical examination. Vital signs were stable. Patient will need diuresis. Her chemistry panel was unremarkable. Patient has improved anemia on CBC. Cardiac troponin and BNP are unremarkable. Patient had a Lance catheter placed as she is having difficulty getting up and moving around due to the significant edema and weight gain. She was administered IV Lasix. I discussed further management in the hospital and patient in agreement. Consultation was made with the [facility] hospitalist service. Patient was evaluated in the ER. After admission her urinalysis did come back and did raise concerns for infection. [facility] was contacted and they are taking care of of antibiotic ordering. I refer you to the EMR for further details. Care/management discussed with: assistant branch manager Level of care consideration(s): After review of the information above and other included data, I feel the patient requires escalation of care to admission Triage Nursing notes: reviewed and agree them. Vital Signs: reviewed and remarkable for no significant abnormalities Additional History obtained from: Patient sister. She knows she is having difficulty getting around at home due to the increased weight gain. Chronic Medical/Social Conditions affecting care: Anemia Prior/ Outside/ External records reviewed: Discharge summary from hospitalization reviewed from last week. The patient had received 4 units of blood for severe anemia. Differential Diagnosis: Anasarca, volume overload, DVT, musculoskeletal, infection, joint effusion, trauma, lymphedema, idiopathic, CHF, as well as other pathologies. Diagnostics, independently interpreted by me: ECG: Twelve-lead ECG reveals normal sinus rhythm at 89 beats per minute. No evidence of pericarditis, ischemia, ectopy, or dysrhythmia. Cardiac Monitoring: Cardiac monitoring ordered by me: The patient was placed on continuous cardiac monitoring and observed. It revealed a normal sinus rhythm at 92 beats per minute without ectopy or evidence of dysrhythmia. Medical decision rules: none Imaging studies: Chest x-ray. Findings: A chest x-ray was performed and revealed no pneumothorax, effusion, infiltrate, pulmonary edema, free air under the diaphragm, or wide mediastinum. Impression: No acute disease. HPI: 73 year old Female arrives for evaluation of leg swelling. Patient notes that she has put on 20 pounds of weight gain since her hospital discharge last week. Patient was in the hospital. She is found to be anemic and did receive 4 units of red blood cell transfusion. She also underwent D&C. Patient states that she is having difficulty getting around due to the weight gain and is feeling mildly weak. No fevers reported. She does note some redness of the skin of the legs. She has swelling through the legs, thigh and even up into the lower abdomen. No history of CHF. Pt denies LOC, headache, fevers, chills, diaphoresis, visual changes, neck pain, chest pain, breathing difficulties, nausea, vomiting, abdominal pain, back pain, melena, hematochezia, urinary symptoms, numbness, lymphadenopathy,or other complaints.. PAST MEDICAL HISTORY: See Below, anemia PAST SURGICAL HISTORY: See Below, SOCIAL HISTORY: See Below, non-smoker HOME MEDICATIONS: See Below ALLERGIES: See Below VITALS: See Below PHYSICAL EXAMINATION: GENERAL: Awake, alert, tired-appearing, in no distress HENT: Normocephalic, atraumatic. Oropharynx unremarkable. EYES: Normal conjunctiva. Sclera non-icteric. NECK: Inspection normal. Non-tender. Supple. No nuchal rigidity. FROM. No masses. RESPIRATORY: Clear to auscultation. No wheezes. No rales. Normal respiratory effort. CARDIAC: Normal rate. Normal rhythm. No murmurs. No rubs. Extremities warm and well perfused. Pulses equal. No JVD. GI: Soft, non-distended. No tenderness to palpation. No rebound or guarding. No masses. RECTAL: Deferred. MUSCULOSKELETAL: Atraumatic. Chest examination reveals no tenderness. The back is symmetrical on inspection without obvious abnormality. There is no CVA tenderness to palpation. No joint edema. LOWER EXTREMITIES: Calves are equal size bilaterally and non-tender. 4+ edema. Erythematous discoloration. NEURO: Normal sensorium. No sensory or motor deficits noted. SKIN: No rash or jaundice noted. PROCEDURES: none CRITICAL CARE: none OBSERVATION NOTE: none Past Med/Surg History Problem List (Updated 03/28/24 @ 21:46 by Franklyn Florentino MD) Acute UTI (urinary tract infection) (Acute) Anasarca (Acute) Bilateral lower leg cellulitis Elevated LFTs Hypocalcemia Ambulatory dysfunction Acute on chronic heart failure with preserved ejection fraction (HFpEF) Severe anemia Chronic hyponatremia Post-menopausal bleeding Encounter for pre-operative examination Spondylolisthesis, lumbar region Lumbosacral spondylosis Degenerative joint disease (DJD) of lumbar spine Scoliosis of lumbar region due to degenerative disease of spine in adult COVID-19 (Acute) 02/28/24 Sacroiliitis Pneumonia (Acute) 04/21/16 Cancer of central portion of right female breast (Acute) "Palpable mass found on physical examination Status post mammography and ultrasound Status post core needle biopsy 09/17/2016 Invasive carcinoma Estrogen receptor negative, progesterone receptor negative and HER-2/agustin negative. 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 ypT1c ypN0 M0 G3 " Hypertension (Chronic) Medical History Spondylolisthesis, lumbar region Scoliosis of lumbar region due to degenerative disease of spine in adult Sacroiliitis Postural dizziness hx, found to have a recent UTI 02/28/24; no current symptoms History of pneumonia 2016, no recent issues Lumbosacral spondylosis Degenerative joint disease (DJD) of lumbar spine Hx of recurrent urinary tract infection most recent 02/28/24, no further symptoms Lumbosacral spondylosis History of COVID-19 02/28/24, asymptomatic>resolved Hx of breast cancer dx 2017, right breast mastectomy>no limb restriction Hypertension Hyperlipidemia Surgical History Post-operative state History of bilateral tubal ligation Hx of colonoscopy Hx of eye surgery age 4 Hx of tonsillectomy Hx of right mastectomy no limb restriction Family History Family/Other Breast cancer Herself Mother Myocardial infarction Denies family history of Ovarian cancer Colorectal cancer Social History Smoking Status: Never smoker Tobacco Type: Cigarettes Second Hand Exposure: No; Do You Dip or Chew Tobacco: No; Tobacco Cessation Education Requested by Patient: No Hx Alcohol Use: No Hx Substance Use: No Preferred Language: Irish Communication Ability: Effective Visual Impairment: No Limitations Airplane Technician Required: No Beliefs That Will Affect Care: None Current Living Situation: Other Current Living Situation Comment: lives with sister Other Information That Helps Us Care for You: No Feels Safe at Home: Yes Safety Concerns: Feels Safe At This Time Assistive Devices: Cane Allergies Allergies Allergy/AdvReac Type Severity Reaction Status Date / Time hydrochlorothiazide AdvReac Intermediate Unknown Verified 03/22/24 14:24 Home Meds Home Medications Medication Instructions Recorded Confirmed simvastatin 40 mg tablet 40 mg PO QPM #0 tabs 03/11/17 03/28/24 Previous Rx's Medication Instructions Recorded gabapentin 300 mg capsule 300 mg PO HS #30 caps 03/15/24 calcium 500 mg (as 1 tab PO BID #60 tabs 03/23/24 carbonate)-vitamin D3 10 mcg (400 unit) tablet (Calcium 500 + D) magnesium chloride 64 mg 128 mg (2 x 64 mg) PO BID #60 tabs 03/23/24 (magnesium chloride) tablet,delayed release (Mag 64) norethindrone acetate 5 mg tablet 10 mg (2 x 5 mg) PO TID 10 days 03/23/24 #60 tabs Results & Data (ED) Vital Signs Vital Signs - 24 hr 03/28/24 12:21 03/28/24 13:18 03/28/24 14:00 Temperature 36.5 C Temperature Source Temporal Artery Scan Pulse Rate 89 Pulse Rate [Apical] 84 80 Pulse Rhythm [Apical] Regular Regular Pulse Strength [Apical] Normal Normal Respiratory Rate 18 20 22 Respiratory Effort / Characteristics Non-Labored Non-Labored Spontaneous Non-Labored Spontaneous Respiratory Depth Normal Normal Normal Respiratory Pattern Regular Regular Blood Pressure 136/81 Blood Pressure [Left Arm] 143/71 H 145/79 H Blood Pressure Mean 99 Blood Pressure Mean [Left Arm] 95 101 Blood Pressure Position [Left Arm] Lying Lying Pulse Oximetry 98 98 Oxygen Delivery Method Room Air Room Air Sepsis Recent Fever Within 48 Hours No Sepsis New/Unexplained Change in Mental Status No Sepsis Action Taken by Nursing No Action Required Laboratory Data 03/28/24 12:42 03/28/24 12:42 Lab Results 03/28/24 03/28/24 Range/Units 12:42 15:30 WBC 8.52 (4.8-10.8) K/ul RBC 3.38 L (4.20-5.40) M/uL Hgb 10.5 L (12.0-16.0) g/dl Hct 33.3 L (37.0-47.0) % MCV 98.5 (80.0-100.0) fL MCH 31.1 (25.0-34.0) pg MCHC 31.5 L (32.0-36.0) g/dL RDW Std Deviation 54.9 H (36.4-46.3) fL RDW Coeff of Dorian 15.1 H (11.5-14.5) % Plt Count 191 (130-400) K/uL MPV 9.4 (9.4-12.4) fL Immature Gran % (Auto) 0.5 % Neut % (Auto) 69.5 % Lymph % (Auto) 14.7 % [place] % (Auto) 14.2 % Eos % (Auto) 0.4 % Baso % (Auto) 0.7 % Neut # (Auto) 5.93 (1.40-6.50) K/uL Lymph # (Auto) 1.25 (1.20-3.40) K/uL [place] # (Auto) 1.21 H (0.11-0.59) K/uL Eos # (Auto) 0.03 (0.00-0.50) K/uL Baso # (Auto) 0.06 (0.00-0.20) K/uL Immature Gran # (Auto) 0.04 (0.01-0.20) K/uL APTT 22 (21-31) Seconds PTT Ratio 0.8 Sodium 133 L (136-145) mmol/L Potassium 4.0 (3.5-5.1) mmol/L Chloride 102 (98-107) mmol/L Carbon Dioxide 24 (21-32) mmol/L Anion Gap 7 (3-11) BUN 11 (6-23) mg/dl Creatinine 0.57 L (0.6-1.2) mg/dl Est Cr Clr Drug Dosing Not Reportable eGFR 94.71 BUN/Creatinine Ratio 19.3 (10-20) Glucose 80 (70-99(Fasting)) mg/dl Calcium 8.2 L (8.6-10.3) mg/dl Magnesium 1.5 L (1.7-2.4) mg/dl Total Bilirubin 1.7 H (0.2-1.0) mg/dl AST 57 H (13-39) U/L ALT 32 (7-52) U/L Alkaline Phosphatase 67 (34-104) U/L Troponin I High Sens 7.3 (0-14) pg/ml B-Natriuretic Peptide 79 (0-100) pg/ml Total Protein 5.3 L (6.0-8.3) gm/dl Albumin 2.7 L (3.4-5.0) gm/dl Globulin 2.6 (2.5-4.0) gm/dl Albumin/Globulin Ratio 1.0 (0.9-2) TSH 6.027 H (0.300-4.500) uIu/ml Free T4 1.02 (0.61-1.60) ng/dl Urine Color Yellow Urine Appearance Cloudy A (Clear) Urine pH 6.5 (4.5-7.5) Ur Specific [place] 1.009 (1.000-1.030) Urine Protein Negative (Negative) Urine Glucose (UA) Negative (Negative) Urine Ketones Negative (Negative) Urine Blood 2+ H (Negative) Urine Nitrite Negative (Negative) Urine Bilirubin Negative (Negative) Urine Urobilinogen Negative (Negative) Ur Leukocyte Esterase 2+ H (Negative) Urine WBC (Auto) 21-50 H (0-5) /hpf Urine RBC (Auto) 3-5 H (0-2) /hpf U Hyaline Cast (Auto) 0-2 (0-2) /lpf U Epithel Cells (Auto) 6-10 H (0-2) /hpf Urine Bacteria (Auto) 4+ H (None Seen) Administered Medications Calcium Carbonate (Calcium Carbonate 1250mg Tab) 1 tab PO BID JOSÉ LUIS Stop: 04/27/24 20:59 Last Admin: 03/28/24 20:15 Dose: 1 tab Documented By: OLEG Gabapentin (Gabapentin 300 Mg Cap) 300 mg PO HS JOSÉ LUIS Stop: 04/27/24 20:59 Last Admin: 03/28/24 20:15 Dose: 300 mg Documented By: OLEG Ceftriaxone Sodium (Rocephin) 2,000 mg in 50 mls @ 100 mls/hr IV Q24H JOSÉ LUIS Stop: 04/04/24 17:59 Last Infusion: 03/28/24 19:10 Dose: Infused Documented By: Admin: 03/28/24 18:21 Dose: 100 mls/hr Documented By: MATEO Vancomycin HCl 1,750 mg/ (Sodium Chloride) 535 mls @ 200 mls/hr IV ONE ONE Stop: 03/28/24 22:40 Last Admin: 03/28/24 20:11 Dose: 200 mls/hr Documented By: OLEG Magnesium Chloride (Magnesium Chloride W/Calcium 64mg Delayed Rel Tab) 128 mg PO BID JOSÉ LUIS Stop: 04/27/24 20:59 Last Admin: 03/28/24 20:14 Dose: 128 mg Documented By: OLEG Melatonin (Melatonin 3 Mg Tab) 6 mg PO HS PRN PRN Reason: Sleep Stop: 04/27/24 20:59 Last Admin: 03/28/24 20:12 Dose: 6 mg Documented By: OLEG Norethindrone (Norethindrone 5 Mg Tab) 10 mg PO TID JOSÉ LUIS Stop: 04/27/24 20:59 Last Admin: 03/28/24 20:12 Dose: 10 mg Documented By: OLEG Potassium Chloride (Potassium Chloride Crtab 20 Meq Tabcr) 20 meq PO QAM JOSÉ LUIS Stop: 04/27/24 18:44 Last Admin: 03/28/24 20:11 Dose: 20 meq Documented By: OLEG Simvastatin (Simvastatin 40 Mg Tab) 40 mg PO QPM JOSÉ LUIS Stop: 04/27/24 20:59 Last Admin: 03/28/24 20:14 Dose: 40 mg Documented By: OLEG Discontinued Medications Furosemide (Furosemide Inj 20 Mg/2 Ml Vial) 20 mg IV ONE ONE Stop: 03/28/24 14:54 Last Admin: 03/28/24 15:25 Dose: 20 mg Documented By: Miscellaneous (Patient's Height &/Or Weight Needed) 1 each N/A Q2H JOSÉ LUIS Stop: 03/28/24 20:00 Last Admin: 03/28/24 18:22 Dose: 1 each Documented By: MATEO Imaging Data Radiologist's Impression: Chest X-Ray 03/28/24 12:27 XR chest 1V not portable CLINICAL HISTORY: fluid overload COMPARISON STUDY: Chest CT April 21, 2016. Chest radiograph February 28, 2024. FINDINGS: Multiple old, healed right-sided rib fractures are incidentally noted. Lung volumes are normal. There is no consolidation. Linear left basilar densities favor atelectasis. There is no pneumothorax or pleural effusion. Cardiac size is normal. Mediastinal contours are normal. There is no evidence for pulmonary edema. IMPRESSION: No acute cardiopulmonary findings. No significant change in appearance of the chest. ACT 112: Negative or not required by law. Electronically signed by: Kingsley Moyer M.D. 03/28/2024 1:04 PM Discharge Plan Visit Data Chief Complaint: Referred by Doctor Stated Complaint: FILLED WITH FLUIDS, IV NEEDED ED Provider: Franklyn Florentino Discharge Problem: Anasarca, Acute UTI (urinary tract infection) Patient Disposition: Admitted As Inpatient Discharge Instructions Interventions: ED Discharge Assessment Last Done: 03/28/24 17:40
[2024-03-29 06:41] LABS: Basophils # (auto) 0.04 K/uL (0.00-0.20); Basophils % (auto) 0.6 %; Eosinophils # (auto) 0.07 K/uL (0.00-0.50); Hematocrit (blood only) 24.1 % (37.0-47.0); Hemoglobin 7.8 g/dl (12.0-16.0); Immature Granulocytes # (auto) 0.02 K/uL (0.01-0.20); Immature Granulocytes % (auto) 0.3 %; Lymphocytes # (auto) 1.59 K/uL (1.20-3.40); Mean Corpuscular Hgb Conc 32.4 g/dL (32.0-36.0); Mean Corpuscular Volume 95.6 fL (80.0-100.0); Mean Platelet Volume 9.4 fL (9.4-12.4); Monocytes # (auto) 1.04 K/uL (0.11-0.59); Monocytes % (auto) 15.1 %; Neutrophils # (auto) 4.14 K/uL (1.40-6.50); Platelet Count 158 K/uL (130-400); Red Blood Count 2.52 M/uL (4.20-5.40)
[2024-03-29 06:58] LABS: Albumin Globulin Ratio 1.1 (0.9-2); Albumin Level 1.9 gm/dl (3.4-5.0); BUN Creatinine Ratio 18.3 (10-20); Bilirubin,Total 1.2 mg/dl (0.2-1.0); Calcium 7.4 mg/dl (8.6-10.3); Chol HDL Ratio 2.1 (0-5); Creatinine Clr Calc Pharmacy 81.9 ml/min; Globulin 1.8 gm/dl (2.5-4.0); Magnesium 1.5 mg/dl (1.7-2.4); Potassium 3.6 mmol/L (3.5-5.1); Total Protein 3.7 gm/dl (6.0-8.3)
--- OUTSIDE RECORDS SUMMARY | 2024-03-29 07:30 | External Medical Summary | Summary of Care ---
Author Name Unknown Organization [facility] Address [address] [place] [address] Phone [phone] Care Team Providers Care Decaler Name Role Phone DannyKenny rueda Alma NICE Primary Care Provider [phone] Reason for Visit * Reason Comments Acute Encounter Details Date Type Department Care Team (Late st Contact Info) Description 03/28/2024 11:40 AM EDT Office Visit Family Practice [facility] [place] [address] [facility] [address] [place] [address] Cristina Pride MD [address] [facility] [place] [address] Anasarca*; Rapid weight gain; S/P D&C (status post dilation and curettage); Post-menopausal bleeding; HTN, goal below 140/90 Allergies No known active allergiesdocumented as of this encounter (statuses as of 03/28/2024) Medications Medication Sig Dispensed Refills Start Date End Date Status Simvastatin 40 MG Oral Tablet (Zocor)Indication s:Dyslipidemia TAKE 1 TABLET BY MOUTH AT BEDTIME 90 Tablet 3 07/19/2023 Active Gabapentin 100 MG Oral Capsule (Neurontin) .COMPLEX 02/22/2024 Active Ibuprofen 400 MG Oral Tablet (Motrin) 1 Tablet. 02/22/2024 Active Calcium Carb-Cholecalcife rol 500-10 MG-MCG Oral Tablet Take 1 Tablet by mouth once. 03/23/2024 Active Magnesium Cl-Calcium Carbonate 71.5-119 MG Oral Tablet Delayed Release Take 128 mg by mouth once. 03/23/2024 Active Norethindrone Acetate 5 MG Oral Tablet Take 2 Tablets by mouth in the morning and 2 Tablets at noon and 2 Tablets in the evening. 03/23/2024 Active Lisinopril-hydroC HLOROthiazide 20-25 MG Oral TabletIndications :HTN, goal below 140/90 TAKE 1 TABLET BY MOUTH EVERY DAY 90 Tablet 1 10/22/2023 03/28/2024 Discontinued documented as of this encounter (statuses as [...] mRNA, LNP-s, No Pre serve, 2-Dose Series (BPeSA) 09/21/2021,03/26/2021,09/02/2020,08/14 Pneumococcal Conjugate Vacc, 13 Valent (Prevnar) [...] on file documented as of this encounter Last Filed Vital Signs Vital Sign Reading Time Taken Comments Blood Pressure 120/68 03/28/2024 11:37 AM EDT Pulse 84 03/28/2024 11:37 AM EDT Temperature 37 C (98.6 F) 03/28/2024 11:37 AM EDT Respiratory Rate 18 03/28/2024 11:37 AM EDT Oxygen Saturation 96% 03/28/2024 11:37 AM EDT Inhaled Oxygen Concentration - - Weight 72.6 kg (160 lb) 03/28/2024 11:37 AM EDT Height - - Body Mass Index 26.63 03/29/2023 12:33 PM EDT documented in this encounter Progress Notes * Cristina Pride MD - 03/28/2024 11:58 AM EDT Subjective Chief Complaint Patient presents with Acute Ratna White is a 73 year old female. Patient is accompanied by her sister. The following issues were addressed today: History of Present Illness The patient, a 73-year-old with recent abnormal vaginal bleeding s/p D&C, presents today with worsening generalized swelling since discharge from recent hospitalization. She reports the vaginal bleeding was significant, with associated clotting, and D&C was recommended. Prior to the procedure, the patient's blood work revealed significantly low hemoglobin and electrolyte levels, which had been normal just two weeks prior. This necessitated hospital admission for IV fluid administration and blood transfusion of 4 units of PRBCs. The D&C was performed a week later, and the patient was discharged the following day. Post-discharge, the patient experienced significant fluid retention, leading to marked swelling in the legs and abdomen, and a weight gain of 20 pounds. The swelling was so severe that it led to fluid leakage through the skin. The patient denies any shortness of breath or cardiac history. The swelling was initially noticed in the hospital but has progressively worsened since discharge. The patient also reports a history of a recent COVID-19 infection and a urinary tract infection, both of which were asymptomatic except for dizziness and a fall. The patient is awaiting the results of the D&C and is scheduled to meet with her doctor for the prognosis and potential hysterectomy planning. The vaginal bleeding, which was the initial concern, has now stopped. Review of Systems: See HPI Objective BP 120/68 | Pulse 84 | Temp 37 C (98.6 F) (Tympanic) | Resp 18 | Wt 72.6 kg (160 lb) | SpO2 96%| BMI 26.63 kg/m | BSA 1.82 m Wt Readings from Last 3 Encounters: 03/28/24 72.6 kg (160 lb) 03/10/24 62.8 kg (138 lb 6.4 oz) 03/29/23 61.4 kg (135 lb 6.4 oz) BP Readings from Last 3 Encounters: 03/28/24 120/68 03/10/24 116/56 03/29/23 126/64 General: Well-appearing, no acute distress Cardiovascular: Regular rate and rhythm, no murmur Respiratory: Good respiratory effort, breath sounds equal and clear to auscultation bilaterally Abdomen: Significantly tense and distended Extremities: 3+ pitting edema bilateral lower extremities from thighs to feet, 1+ pitting edema of bilateral hands Neurological: Alert and oriented, no focal deficits noted Psychiatric: Appropriate mood and affect Assessment and Plan 1. Anasarca 2. Rapid weight gain New onset severe edema. No history of cardiac or renal dyspnea. Likely in part secondary to recent hospitalization with IV fluids and blood transfusion. -Recommended admission to hospital for diuresis. -Monitor electrolytes and renal function closely. -Echocardiogram to assess cardiac function. 3. S/P D&C (status post dilation and curettage) 4. Post-menopausal bleeding Follow-up with gynecology. Sister plans to call office to let them know patient is going to the ER so her follow-up appointment can be rescheduled. 5. HTN, goal below 140/90 Stable. Will cancel TCM visit 03/29/[address] Pacheco. Reschedule another TCM when patient discharged. Sister will transport patient to the [facility] ER via personal vehicle. This note was electronically signed by Cristina Pride MD Text in this note was generated using an MoPub documentation service. I discussed the use of a device to record and summarize our discussion today. All persons present during the encounter consented to its use. documented in this encounter Nursing Notes * Shyla Zafar LPN - 03/28/2024 11:33 AM EDT Patient presents in office today with C/O having edema all over mostly in abdomen and legs. Legs are red and painful. Did have edema in hands but that has gone down down. Was in [facility] for a DNC and they admitted her for her labs being all over the place. Was told to see PCP. Will be getting a hysterectomy is already scheduled documented in this encounter Plan of Treatment Upcoming Encounters Date Type Department Care Team (Late st Contact Info) Description 09/29/2024 10:20 AM EDT Office Visit Family Practice [facility] [address] [facility] [address] [place], [place] [address] Kenny Pacheco, [address] [place], [place] [address] Scheduled Procedures Name Priority Associated Diagnoses Date/Ti [...] D LEVEL ONCE IN A LIFETIME-USE SMARTSET# [id number] Completed 04/19/2023, 09/09/2022, 05/25/2022 Influenza Vaccine (FLU [...] this encounter Medical Devices Implanted Type Area Agricultural Chemicals Inspector Device Identifier Shelf Expiration Date Model / Serial / Lot Port Power Mri W/8fr Cath - [id number] Implanted:Qty: 1 on 10/07/2016 by Judith Barrios MD at OR [facility] Left: Subclavian CR BARD : PERIPHERAL VASCULAR 01/11/2018 [id number] / / [id number] Natrelle 500cc Technology Analyst Implanted:Qty: 1 on 05/03/2017 [place] Jacoby Goyal [place] [facility] [place]: Breast ALLERGAN 04/12/2019 [id number] / [id number] / [id number] Smooth Round Moderate Profile Breast Implant Implanted:Qty: 1 on 10/21/2017 at [facility] Right: Breast ALLERGAN 07/29/2022 [id number]-[id number] / [id number] / [id number] documented as of this encounter Visit Diagnoses Diagnosis Anasarca- Primary Edema Rapid weight gain Abnormal weight gain S/P D&C (status post dilation and curettage) Other postprocedural status Post-menopausal bleeding Postmenopausal bleeding HTN, goal below 140/90 Unspecified essential hypertension documented in this encounter Advance Directives * Full Code (Latest Code Status on File) Date Activated Date Inactivated Comments 05/03/2017 9:55 AM 05/04/2017 2:39 PM This order reflects the patients wishes and were consensually agreed upon. Care Teams Decaler Relationship Specialty Start Date End Date Kenny Pacheco DO [address] [place] [address] PCP - General Family Medicine 04/08/21 documented as of this encounter"
[2024-03-29 07:37] LABS: Estimated Average Glucose 80 mg/dl; Hemoglobin A1C 4.4 % (4.5-5.6)
[2024-03-29 07:51] LABS: Echinocytes 1+; Polychromasia 1+
[2024-03-29] MEDS ORDERED: VANCOMYCIN HCL 750 MG in SODIUM CHLORIDE 0.9% 250 ML IV SCH (08:00)
[2024-03-29] MEDS: CHOLECALCIFEROL 10 MCG (400 UNITS) TAB PO SCH (08:30)
[2024-03-29] MEDS: FUROSEMIDE INJ 20 MG/2 ML VIAL IV SCH (08:30)
[2024-03-29] MEDS: ADVANCED PROBIOTIC 625 MG CAPSULE PO SCH (08:30)
--- NOTE | 2024-03-29 09:08 | Hospitalist Progress Note ---
Date of Service March 29, 2024 Assessment & Plan (1) Acute on chronic heart failure with preserved ejection fraction (HFpEF): (2) Chronic hyponatremia: (3) Ambulatory dysfunction: (4) Hypocalcemia: (5) Elevated LFTs: (6) Bilateral lower leg cellulitis: Plan This is a 73-year-old female who has a significant past medical history of HTN, HLD, age-related osteoporosis, history of breast cancer and elevated liver enzymes who presents to ED secondary to bilateral leg swelling and abdominal swelling x 1 week. patient recently hospitalized 03/17 to 03/23 secondary to profound anemia in setting of vaginal bleeding requiring a D&C and myomectomy. During hospitalization she required 5 units of PRBC as well as IV fluid resuscitation in setting of acute on chronic hyponatremia. She was net + 15.7k Liters; however outputs not accurately documented She presents to ED today up 22 pounds from her baseline of 140 pounds with associated bilateral lower extremity redness and possible UTI. Hypervolemia likely multifactorial in setting of acute on chronic HFpEF and hypoalbuminemia admitted to PCU on admission started on IV Lasix 20 mg twice daily, strict I's and O's with Lance catheter remove Lance catheter once patient more ambulatory Daily weights, heart healthy and low-sodium diet Echocardiogram ordered, last done in 2015 which revealed a preserved EF and grade 1 diastolic dysfunction, no evidence of valvular heart disease at that time Cardiology consulted to assist with diuresis 03/29/24 - Discussed w/ cardiology - (and w/ radiology), Hgb down 7.8 this AM, pt denies any abd. pain, but continues to have significant edema - Will obtain CT abd.pelvis w/ contrast Repeat H&H 8.2 Given recent procedure - also obtained blood cultx Possible BLE Cellulitis she is afebrile and wbc WNL but with significant redness to b/l pretibial surfaces and streaking proximally on RLE, add on empiric IV rocephin, vanco + probiotic, wound care Possible UTI: abnormal UA, last urine culture grew multi skin torri, pt is asymptomatic, continue IV Rocephin, await urine culture Hypocalcemia: in setting of volume overload/IVF shortage will place on os yaima BID, obtain ionized Ca in a.m. Hypoalbuminemia: consult nutrition to assist to protein intake Ambulatory dysfxn 2/2 excess volume: PT/OT Chronic Hyponatremia: last admission Na down to 119, nephro on board, lisinopril/HCTZ discontinued, monitor Na closely Chronically elevated LFTS, cirrhosis on CT: total bili 1.7, ast 57, obtain direct bili. no abd pain, repeat in a.m. DVT ppx: given recent profound anemia will hold on chemical ppx for now, will also avoid SCDs due to cellulitis, consider chemical ppx in 24hrs if no vaginal bleeding and hgb remains stable FULL CODE PCP: Dr. Pacheco Dispo: PCU, PT/OT consulted Admission and Anticipated Discharge Date Admission Date: March 28, 2024 Subjective Pt seen in follow up - presents with hypervolemia, poss. UTI, poss. cellulitis Recently discharged from hospital - underwent D&C, required multiple blood transfusions at that time Currently laying in bed in NAD Reports about 20 lbs weight gain - already when she left the hospital the last time Now erythema in her legs developed, LE edema, abdominal distention. upper extremity edema has resolved prior to her current admission Hgb down 7.8 this AM - discussed w/ cardiology and radiology - will repeat CT abd/pelvis w/ contrast Review of Systems Review of Systems: All systems reviewed & are unremarkable except as noted in Subjective Physical Exam Physical Exam: Constitutional: WD/WN F in NAD Head: Normocephalic, Atraumatic Eyes: PERRL, conjunctivae normal, anicteric sclerae ENMT: external ear and nose normal, oropharynx normal Neck: normal visual inspection Respiratory: normal respiratory effort, lungs clear to auscultation, no wheeze, rales, rhonchi. Normal insp/exp effort, no accessory muscle use Cardiovascular: RRR, no murmur, +3 lower ext edema extending proximally to thighs and abd, b/l erythematous pretibial surfaces with streaking to R proximal thigh, R pretibial blood bulla noted Abdomen: normal bowel sounds, soft, nontender Skin: warm, dry : Lance cath w/ yellow urine Neurologic: PERRL, EOMI, no face palsy, no dysarthria, moves all extremities Psychiatric: A+Ox3, euthymic affect Results & Data Results & Data Vital Signs (Past 12 Hours) Vital Signs Temp Pulse Resp BP Pulse Ox O2 Del Method 10/16/24 07:58 36.9 C 90 16 108/68 95 Room Air 03/29/24 02:53 36.9 C 93 H 18 109/51 L 94 Room Air 03/28/24 22:51 36.9 C 92 H 18 111/55 L 94 Room Air Laboratory Results 03/29/24 03/28/24 03/28/24 Range/Units 05:45 20:00 17:52 WBC 6.90 (4.8-10.8) K/ul RBC 2.52 L (4.20-5.40) M/uL Hgb 7.8 L (12.0-16.0) g/dl Hct 24.1 L (37.0-47.0) % MCV 95.6 (80.0-100.0) fL MCH 31.0 (25.0-34.0) pg MCHC 32.4 (32.0-36.0) g/dL RDW Std Deviation 52.0 H (36.4-46.3) fL RDW Coeff of Dorian 15.0 H (11.5-14.5) % Plt Count 158 (130-400) K/uL MPV 9.4 (9.4-12.4) fL Immature Gran % (Auto) 0.3 % Neut % (Auto) 60.0 % Lymph % (Auto) 23.0 % [place] % (Auto) 15.1 % Eos % (Auto) 1.0 % Baso % (Auto) 0.6 % Neut # (Auto) 4.14 (1.40-6.50) K/uL Lymph # (Auto) 1.59 (1.20-3.40) K/uL [place] # (Auto) 1.04 H (0.11-0.59) K/uL Eos # (Auto) 0.07 (0.00-0.50) K/uL Baso # (Auto) 0.04 (0.00-0.20) K/uL Immature Gran # (Auto) 0.02 (0.01-0.20) K/uL Polychromasia 1+ Echinocytes 1+ APTT (21-31) Seconds PTT Ratio Sodium 135 L (136-145) mmol/L Potassium 3.6 (3.5-5.1) mmol/L Chloride 105 (98-107) mmol/L Carbon Dioxide 23 (21-32) mmol/L Anion Gap 7 (3-11) BUN 11 (6-23) mg/dl Creatinine 0.60 (0.6-1.2) mg/dl Est Cr Clr Drug Dosing 81.9 eGFR 93.55 BUN/Creatinine Ratio 18.3 (10-20) Glucose 74 (70-99(Fasting)) mg/dl Estimat Average Glucose 80 mg/dl Hemoglobin A1c 4.4 L (4.5-5.6) % Calcium 7.4 L (8.6-10.3) mg/dl Ionized Calcium 1.18 (1.12-1.32) mmol/L Magnesium 1.5 L (1.7-2.4) mg/dl Total Bilirubin 1.2 H (0.2-1.0) mg/dl Direct Bilirubin 0.5 H (0-0.2) mg/dl AST 30 (13-39) U/L ALT 20 (7-52) U/L Alkaline Phosphatase 46 (34-104) U/L Troponin I High Sens (0-14) pg/ml B-Natriuretic Peptide (0-100) pg/ml Total Protein 3.7 L D (6.0-8.3) gm/dl Albumin 1.9 L (3.4-5.0) gm/dl Globulin 1.8 L (2.5-4.0) gm/dl Albumin/Globulin Ratio 1.1 (0.9-2) Triglycerides 53 (0-150) mg/dl Cholesterol 62 (0-200) mg/dl LDL Cholesterol, Calc 22 mg/dl VLDL Cholesterol, Calc 11 (0-30) mg/dl HDL Cholesterol 29 mg/dl Cholesterol/HDL Ratio 2.1 (0-5) TSH (0.300-4.500) uIu/ml Free T4 (0.61-1.60) ng/dl Urine Color Urine Appearance (Clear) Urine pH (4.5-7.5) Ur Specific [place] (1.000-1.030) Urine Protein (Negative) Urine Glucose (UA) (Negative) Urine Ketones (Negative) Urine Blood (Negative) Urine Nitrite (Negative) Urine Bilirubin (Negative) Urine Urobilinogen (Negative) Ur Leukocyte Esterase (Negative) Urine WBC (Auto) (0-5) /hpf Urine RBC (Auto) (0-2) /hpf U Hyaline Cast (Auto) (0-2) /lpf U Epithel Cells (Auto) (0-2) /hpf Urine Bacteria (Auto) (None Seen) Nasal Screen MRSA (PCR) Negative (Negative) 03/28/24 03/28/24 Range/Units 15:30 12:42 WBC 8.52 (4.8-10.8) K/ul RBC 3.38 L (4.20-5.40) M/uL Hgb 10.5 L (12.0-16.0) g/dl Hct 33.3 L (37.0-47.0) % MCV 98.5 (80.0-100.0) fL MCH 31.1 (25.0-34.0) pg MCHC 31.5 L (32.0-36.0) g/dL RDW Std Deviation 54.9 H (36.4-46.3) fL RDW Coeff of Dorian 15.1 H (11.5-14.5) % Plt Count 191 (130-400) K/uL MPV 9.4 (9.4-12.4) fL Immature Gran % (Auto) 0.5 % Neut % (Auto) 69.5 % Lymph % (Auto) 14.7 % [place] % (Auto) 14.2 % Eos % (Auto) 0.4 % Baso % (Auto) 0.7 % Neut # (Auto) 5.93 (1.40-6.50) K/uL Lymph # (Auto) 1.25 (1.20-3.40) K/uL [place] # (Auto) 1.21 H (0.11-0.59) K/uL Eos # (Auto) 0.03 (0.00-0.50) K/uL Baso # (Auto) 0.06 (0.00-0.20) K/uL Immature Gran # (Auto) 0.04 (0.01-0.20) K/uL Polychromasia Echinocytes APTT 22 (21-31) Seconds PTT Ratio 0.8 Sodium 133 L (136-145) mmol/L Potassium 4.0 (3.5-5.1) mmol/L Chloride 102 (98-107) mmol/L Carbon Dioxide 24 (21-32) mmol/L Anion Gap 7 (3-11) BUN 11 (6-23) mg/dl Creatinine 0.57 L (0.6-1.2) mg/dl Est Cr Clr Drug Dosing Not Reportable eGFR 94.71 BUN/Creatinine Ratio 19.3 (10-20) Glucose 80 (70-99(Fasting)) mg/dl Estimat Average Glucose mg/dl Hemoglobin A1c (4.5-5.6) % Calcium 8.2 L (8.6-10.3) mg/dl Ionized Calcium (1.12-1.32) mmol/L Magnesium 1.5 L (1.7-2.4) mg/dl Total Bilirubin 1.7 H (0.2-1.0) mg/dl Direct Bilirubin (0-0.2) mg/dl AST 57 H (13-39) U/L ALT 32 (7-52) U/L Alkaline Phosphatase 67 (34-104) U/L Troponin I High Sens 7.3 (0-14) pg/ml B-Natriuretic Peptide 79 (0-100) pg/ml Total Protein 5.3 L (6.0-8.3) gm/dl Albumin 2.7 L (3.4-5.0) gm/dl Globulin 2.6 (2.5-4.0) gm/dl Albumin/Globulin Ratio 1.0 (0.9-2) Triglycerides (0-150) mg/dl Cholesterol (0-200) mg/dl LDL Cholesterol, Calc mg/dl VLDL Cholesterol, Calc (0-30) mg/dl HDL Cholesterol mg/dl Cholesterol/HDL Ratio (0-5) TSH 6.027 H (0.300-4.500) uIu/ml Free T4 1.02 (0.61-1.60) ng/dl Urine Color Yellow Urine Appearance Cloudy A (Clear) Urine pH 6.5 (4.5-7.5) Ur Specific [place] 1.009 (1.000-1.030) Urine Protein Negative (Negative) Urine Glucose (UA) Negative (Negative) Urine Ketones Negative (Negative) Urine Blood 2+ H (Negative) Urine Nitrite Negative (Negative) Urine Bilirubin Negative (Negative) Urine Urobilinogen Negative (Negative) Ur Leukocyte Esterase 2+ H (Negative) Urine WBC (Auto) 21-50 H (0-5) /hpf Urine RBC (Auto) 3-5 H (0-2) /hpf U Hyaline Cast (Auto) 0-2 (0-2) /lpf U Epithel Cells (Auto) 6-10 H (0-2) /hpf Urine Bacteria (Auto) 4+ H (None Seen) Nasal Screen MRSA (PCR) (Negative) Medications Administered Current Inpatient Medications Acetaminophen (Acetaminophen 325 Mg Tab) 650 mg PO Q4H PRN PRN Reason: Pain or Fever Stop: 04/27/24 18:44 Calcium Carbonate (Calcium Carbonate 1250mg Tab) 1 tab PO BID JOSÉ LUIS Stop: 04/27/24 20:59 Last Admin: 03/28/24 20:15 Dose: 1 tab Famotidine (Famotidine 20 Mg Tab) 20 mg PO DAILY PRN PRN Reason: Heartburn Stop: 04/27/24 18:44 Furosemide (Furosemide Inj 20 Mg/2 Ml Vial) 20 mg IV [id number] JOSÉ LUIS Stop: 04/28/24 08:59 Gabapentin (Gabapentin 300 Mg Cap) 300 mg PO HS JOSÉ LUIS Stop: 04/27/24 20:59 Last Admin: 03/28/24 20:15 Dose: 300 mg Ceftriaxone Sodium (Rocephin) 2,000 mg in 50 mls @ 100 mls/hr IV Q24H JOSÉ LUIS Stop: 04/04/24 17:59 Last Infusion: 03/28/24 19:10 Dose: Infused Magnesium Sulfate/Dextrose (Magnesium Sulfate / D5w) 1 gm in 100 mls @ 50 mls/hr IV ONE ONE Stop: 03/29/24 10:46 Vancomycin HCl 1,000 mg/ (Sodium Chloride) 270 mls @ 200 mls/hr IV Q12H JOSÉ LUIS Stop: 04/05/24 08:59 Lactobacillus Acidophilus (Advanced Probiotic 625 Mg Capsule) 1,250 mg PO DAILY JOSÉ LUIS Stop: 04/28/24 08:59 Magnesium Chloride (Magnesium Chloride W/Calcium 64mg Delayed Rel Tab) 128 mg PO BID JOSÉ LUIS Stop: 04/27/24 20:59 Last Admin: 03/28/24 20:14 Dose: 128 mg Melatonin (Melatonin 3 Mg Tab) 6 mg PO HS PRN PRN Reason: Sleep Stop: 04/27/24 20:59 Last Admin: 03/28/24 20:12 Dose: 6 mg Miscellaneous Information (Vancomycin Consult Active) 1 each N/A UD PRN PRN Reason: Consult Stop: 04/27/24 19:09 Norethindrone (Norethindrone 5 Mg Tab) 10 mg PO TID [facility] Stop: 04/27/24 20:59 Last Admin: 03/28/24 20:12 Dose: 10 mg Ondansetron HCl (Ondansetron Inj 2 Mg/Ml 2 Ml Vial) 4 mg IV Q6H PRN PRN Reason: Nausea Stop: 04/27/24 18:44 Polyethylene Glycol (Polyethylene (Miralax) 17 Gm Pack) 17 gm PO DAILY PRN PRN Reason: Constipation Stop: 04/27/24 18:44 Potassium Chloride (Potassium Chloride Crtab 20 Meq Tabcr) 20 meq PO QAM JOSÉ LUIS Stop: 04/27/24 18:44 Last Admin: 03/28/24 20:11 Dose: 20 meq Simvastatin (Simvastatin 40 Mg Tab) 40 mg PO QPM [facility] Stop: 04/27/24 20:59 Last Admin: 03/28/24 20:14 Dose: 40 mg Vitamin D (Cholecalciferol 10 Mcg (400 Units) Tab) 10 mcg PO QAM [facility] Stop: 04/28/24 08:59
[2024-03-29] MEDS: MAGNESIUM SULFATE / D5W 1 GM/100 ML BAG IV ONE (09:24)
[2024-03-29] MEDS: VANCOMYCIN HCL 1,000 MG in SODIUM CHLORIDE 0.9% 250 ML IV SCH (09:24)
--- NOTE | 2024-03-29 12:35 | Pharmacy Report ---
Pharmacy PK ABX Note - Date of Service March 29, 2024 - Assessment and Plan Assessment * 73 year old F receiving ceftriaxone and vancomycin for treatment of possible UTI and possible b/l LE cellulitis. * Urine culture w probable Enterococcus. No hx VRE in culture hx. * SCr stable from yesterday Plan Vancomycin * Loading dose: 1750 mg IV x 1 * Maintenance dose: 1000 mg IV every 12 hours * Regimen is predicted to achieve target AUC/LUIS CARLOS of 400-600 mg/L.hr * Random level ordered for: 03/30 AM Pharmacy will continue to follow and will adjust dose/frequency as necessary. Thank you. Pharmacy has transitioned to AUC monitoring for vancomycin. AUC/LUIS CARLOS is the preferred PK/PD target and is associated with decreased risk of nephrotoxicity compared to traditional trough targets.
--- NOTE | 2024-03-29 13:02 | Cardiology Consultation ---
Date of Consultation March 29, 2024 Assessment & Plan (1) Anasarca: (2) Bilateral lower leg cellulitis: (3) Severe anemia: (4) Volume overload: Plan Patient with recent admission for post menopausal bleeding, underwent D&C with biopsies. Final results pending (send for 2nd opinion) During that admission she received 5 units PRBC's and IV fluids. She gained approx 15 kg during that admission. She also had issues with hyponatremia and her HCTZ was discontinued. Upon returning home, patient reported she was "full of fluid". Her edema worsened over the next few days with significant erythema developing b/l lower extremities. She also developed worsening abdominal bloating. No recurrent vaginal bleeding noted. She came back to the ER for evaluation. In ER- BNP was normal. Chest xray was clear. No hypoxia. No SOB reported. She was started on IV antibiotics for possible B/L LE cellulitis. IV lasix initiated at 20 mg IV BID. Monitor I+O's Supplement potassium. Echo is ordered and will be reviewed when available. Recommend venous duplex - ordered. Based on her symptoms, evaluation and test results thus far, her volume overload does not appear to be cardiac in nature. Along with clear chest xray, normal BNP, she has no clinical symptoms of SOB, orthopnea to suggest CHF. Discussed with hospitalist. Could be low albumin contributing as well. Hbg dropped again today. Further evaluation warranted. Case discussed with Dr. Olson I spent a total of 60 minutes on the date of service in preparation, delivery, and documentation of the care provided to this patient, excluding any time spent in the performance of separately billed services. Mell Szymanski PA-C Department of Cardiology, [facility] This chart was completed in part utilizing Speech Voice Recognition Software. Grammatical errors, random word insertions, pronoun errors, and incomplete sentences are an occasional consequence of this system due to software limitations, ambient noise, and hardware issues. Any formal questions or concerns about the content, text, or information contained within the body of this dictation should be directly addressed to the provider for clarification. Supervising Physician Co-Signing Physician Notes I have personally performed a history and physical examination on the patient. I have reviewed the advance practitioner's documentation, and I agree with, and take responsibility for the plan of care. 73-year-old female with volume overload secondary to recent hospitalization with administration of 5 units packed red blood cells, and IV fluid in setting of vaginal bleeding. Echocardiogram revealing hyperdynamic left ventricular systolic function. Continue diuretic therapy as per hospitalist. No further cardiac testing or intervention recommended at this time. Chuy Olson DO, [facility] History of Present Illness Reason for Consultation: LE edema Requesting Physician: Suresh Pruettist Attending Physician: Dr. Olson History of Present Illness Patient is a 73 year old female presenting to [facility] with complaints of significant B/L LE edema, erythema and abdominal bloating. Patient recent admitted to [facility] 1 week ago for post op vaginal bleeding, anemia. During admission she received [address] scan demonstrated distended uterine cavity with possible soft tissue vs blood products. Concerning for possi ble endometrial neoplasm. She underwent D&C for further evaluation. She reported no recurrent bleeding During admission she reportedly gained approx 20 lbs of fluid. She was also taken off her hctz due to hyponatremia. When she returned home her edema worsened along with her LE erythema and tenderness. She came back to ER for evaluation. She has 3+ pitting edema to hips. She has significant erythema b/l. No cardiac history. Chest xray ws clear without pleural effusions. BNP was normal Patient denies symptoms of SOB, orthopnea, PND or cough. No fever or chills. She notes ongoing abdominal bloating/distention. History includes: HTN dyslipidemia No known cardiac history. Allergies Allergy/AdvReac Type Severity Reaction Status Date / Time hydrochlorothiazide AdvReac Intermediate Unknown Verified 03/22/24 14:24 Home Medications Medication Instructions Recorded Confirmed Type simvastatin 40 mg tablet 40 mg PO QPM #0 tabs 03/11/17 03/28/24 History gabapentin 300 mg capsule 300 mg PO HS #30 caps 03/15/24 03/28/24 Rx calcium 500 mg (as 1 tab PO BID #60 tabs 03/23/24 03/28/24 Rx carbonate)-vitamin D3 10 mcg (400 unit) tablet (Calcium 500 + D) magnesium chloride 64 mg 128 mg (2 x 64 mg) PO BID #60 tabs 03/23/24 03/28/24 Rx (magnesium chloride) tablet,delayed release (Mag 64) norethindrone acetate 5 mg tablet 10 mg (2 x 5 mg) PO TID 10 days 03/23/24 03/28/24 Rx #60 tabs Patient History Medical History Spondylolisthesis, lumbar region Scoliosis of lumbar region due to degenerative disease of spine in adult Sacroiliitis Postural dizziness hx, found to have a recent UTI 02/28/24; no current symptoms History of pneumonia 2016, no recent issues Lumbosacral spondylosis Degenerative joint disease (DJD) of lumbar spine Hx of recurrent urinary tract infection most recent 02/28/24, no further symptoms Lumbosacral spondylosis History of COVID-19 02/28/24, asymptomatic>resolved Hx of breast cancer dx 2017, right breast mastectomy>no limb restriction Hypertension Hyperlipidemia Surgical History Post-operative state History of bilateral tubal ligation Hx of colonoscopy Hx of eye surgery age 4 Hx of tonsillectomy Hx of right mastectomy no limb restriction Family History Family/Other Breast cancer Herself Mother Myocardial infarction Denies family history of Ovarian cancer Colorectal cancer Social History Smoking Status: Never smoker Tobacco Type: Cigarettes Second Hand Exposure: No; Do You Dip or Chew Tobacco: No; Tobacco Cessation Education Requested by Patient: No Hx Alcohol Use: No Hx Substance Use: No Preferred Language: Turkish Communication Ability: Effective Visual Impairment: No Limitations Healthcare Manager Required: No Beliefs That Will Affect Care: None Current Living Situation: Other Current Living Situation Comment: lives with sister Other Information That Helps Us Care for You: No Feels Safe at Home: Yes Safety Concerns: Feels Safe At This Time Assistive Devices: Cane and Walker Review of Systems Review of Systems: All systems reviewed & are unremarkable except as noted in HPI & below Physical Exam Constitutional: WD/WN, vitals as above well nourished; no acute distress Neck: trachea midline, no thyromegaly Respiratory: normal respiratory effort Auscultation: lungs clear to auscultation bilaterally Cardiovascular: Rate/Rhythm: regular rate and regular rhythm Heart Sounds: normal S1 and normal S2; no murmur Vessels: no JVD Extremities: + edema (2-3+ edema to hips with erythema ) Results & Data Vital Signs (Past 12 Hours) Vital Signs Temp Pulse Resp BP Pulse Ox O2 Del Method 03/29/24 11:00 36.6 C 89 18 100/64 99 Room Air 03/29/24 07:58 36.9 C 90 16 108/68 95 Room Air 03/29/24 02:53 36.9 C 93 H 18 109/51 L 94 Room Air Laboratory Results Cardiac Enzymes 03/28/24 03/29/24 Range/Units 12:42 05:45 AST 57 H 30 (13-39) U/L Troponin I High Sens 7.3 (0-14) pg/ml B-Natriuretic Peptide 79 (0-100) pg/ml Coagulation 03/28/24 Range/Units 12:42 APTT 22 (21-31) Seconds B-Natriuretic Peptide 79 (0-100) pg/ml Lipids 03/29/24 Range/Units 05:45 Triglycerides 53 (0-150) mg/dl Cholesterol 62 (0-200) mg/dl HDL Cholesterol 29 mg/dl Cholesterol/HDL Ratio 2.1 (0-5) CBC 03/28/24 03/29/24 Range/Units 12:42 05:45 WBC 8.52 6.90 (4.8-10.8) K/ul RBC 3.38 L 2.52 L (4.20-5.40) M/uL Hgb 10.5 L 7.8 L (12.0-16.0) g/dl Hct 33.3 L 24.1 L (37.0-47.0) % Plt Count 191 158 (130-400) K/uL Neut # (Auto) 5.93 4.14 (1.40-6.50) K/uL Lymph # (Auto) 1.25 1.59 (1.20-3.40) K/uL [place] # (Auto) 1.21 H 1.04 H (0.11-0.59) K/uL Eos # (Auto) 0.03 0.07 (0.00-0.50) K/uL Baso # (Auto) 0.06 0.04 (0.00-0.20) K/uL Comprehensive Metabolic Panel 03/28/24 03/28/24 03/29/24 Range/Units 12:42 17:52 05:45 Sodium 133 L 135 L (136-145) mmol/L Potassium 4.0 3.6 (3.5-5.1) mmol/L Chloride 102 105 (98-107) mmol/L Carbon Dioxide 24 23 (21-32) mmol/L BUN 11 11 (6-23) mg/dl Creatinine 0.57 L 0.60 (0.6-1.2) mg/dl Glucose 80 74 (70-99(Fasting)) mg/dl Calcium 8.2 L 7.4 L (8.6-10.3) mg/dl Direct Bilirubin 0.5 H (0-0.2) mg/dl AST 57 H 30 (13-39) U/L ALT 32 20 (7-52) U/L Alkaline Phosphatase 67 46 (34-104) U/L Total Protein 5.3 L 3.7 L D (6.0-8.3) gm/dl Albumin 2.7 L 1.9 L (3.4-5.0) gm/dl Intake and Output 03/28/24 03/29/24 03/29/24 22:59 06:59 14:59 Intake Total 1035 / 1135 100 / 1135 370 / 370 Output Total 750 / 850 100 / 850 Balance 285 / 285 0 / 285 369 / 369 Intake: IV 585 / 585 370 / 370 Magnesium Sulfate / D5w 1 gm In 100 / 100 100 ml @ 50 mls/hr IV ONE ONE Rx#:[id number] Vancomycin HCl 1,000 mg In 270 / 270 Sodium Chloride 0.9% 250 ml @ 200 mls/hr IV Q12H [facility] Rx#: [id number] Vancomycin HCl 1,750 mg In 535 / 535 Sodium Chloride 0.9% 500 ml @ 200 mls/hr IV ONE ONE Rx#: [id number] cefTRIAXone SODIUM 2,000 mg In 50 / 50 50 ml @ 100 mls/hr IV Q24H [facility] Rx#:[id number] Oral 450 / 550 100 / 550 Output: Urine Amount (Catheter) 750 / 850 100 / 850 Lance/Indwelling 750 / 850 100 / 850 # Bowel Movements Other: Weight 73 kg 74.5 kg Weight Measurement Method Standing Scale Standing Scale Diagnostic Findings Telemetry reviewed: NSR, Sinus tachycardia at 100-110 bmp. Short run of non sustained PAT noted 10:43 Echo - pending EKG reviewed from admission, 03/28/24: NSR at 89 bmp low voltage QRS No acute ischemic changes Chest X-Ray 03/28/24 12:27 XR chest 1V not portable CLINICAL HISTORY: fluid overload COMPARISON STUDY: Chest CT April 21, 2016. Chest radiograph February 28, 2024. FINDINGS: Multiple old, healed right-sided rib fractures are incidentally noted. Lung volumes are normal. There is no consolidation. Linear left basilar densities favor atelectasis. There is no pneumothorax or pleural effusion. Cardiac size is normal. Mediastinal contours are normal. There is no evidence for pulmonary edema. IMPRESSION: No acute cardiopulmonary findings. No significant change in appearance of the chest. ACT 112: Negative or not required by law. Electronically signed by: Kingsley Moyer M.D. 03/28/2024 1:04 PM Medications Administered Current Inpatient Medications Acetaminophen (Acetaminophen 325 Mg Tab) 650 mg PO Q4H PRN PRN Reason: Pain or Fever Stop: 04/27/24 18:44 Calcium Carbonate (Calcium Carbonate 1250mg Tab) 1 tab PO BID JOSÉ LUIS Stop: 04/27/24 20:59 Last Admin: 03/29/24 08:30 Dose: 1 tab Famotidine (Famotidine 20 Mg Tab) 20 mg PO DAILY PRN PRN Reason: Heartburn Stop: 04/27/24 18:44 Furosemide (Furosemide Inj 20 Mg/2 Ml Vial) 20 mg IV [id number] JOSÉ LUIS Stop: 04/28/24 08:59 Last Admin: 03/29/24 08:30 Dose: 20 mg Gabapentin (Gabapentin 300 Mg Cap) 300 mg PO HS JOSÉ LUIS Stop: 04/27/24 20:59 Last Admin: 03/28/24 20:15 Dose: 300 mg Ceftriaxone Sodium (Rocephin) 2,000 mg in 50 mls @ 100 mls/hr IV Q24H JOSÉ LUIS Stop: 04/04/24 17:59 Last Infusion: 03/28/24 19:10 Dose: Infused Vancomycin HCl 1,000 mg/ (Sodium Chloride) 270 mls @ 200 mls/hr IV Q12H JOSÉ LUIS Stop: 04/05/24 08:59 Last Infusion: 03/29/24 11:08 Dose: Infused Lactobacillus Acidophilus (Advanced Probiotic 625 Mg Capsule) 1,250 mg PO DAILY JOSÉ LUIS Stop: 04/28/24 08:59 Last Admin: 03/29/24 08:30 Dose: 1,250 mg Magnesium Chloride (Magnesium Chloride W/Calcium 64mg Delayed Rel Tab) 128 mg PO BID JOSÉ LUIS Stop: 04/27/24 20:59 Last Admin: 03/29/24 08:30 Dose: 128 mg Melatonin (Melatonin 3 Mg Tab) 6 mg PO HS PRN PRN Reason: Sleep Stop: 04/27/24 20:59 Last Admin: 03/28/24 20:12 Dose: 6 mg Miscellaneous Information (Vancomycin Consult Active) 1 each N/A UD PRN PRN Reason: Consult Stop: 04/27/24 19:09 Norethindrone (Norethindrone 5 Mg Tab) 10 mg PO TID [facility] Stop: 04/27/24 20:59 Last Admin: 03/29/24 08:30 Dose: 10 mg Ondansetron HCl (Ondansetron Inj 2 Mg/Ml 2 Ml Vial) 4 mg IV Q6H PRN PRN Reason: Nausea Stop: 04/27/24 18:44 Polyethylene Glycol (Polyethylene (Miralax) 17 Gm Pack) 17 gm PO DAILY PRN PRN Reason: Constipation Stop: 04/27/24 18:44 Potassium Chloride (Potassium Chloride Crtab 20 Meq Tabcr) 20 meq PO QAM JOSÉ LUIS Stop: 04/27/24 18:44 Last Admin: 03/29/24 09:12 Dose: 20 meq Simvastatin (Simvastatin 40 Mg Tab) 40 mg PO QPM JOSÉ LUIS Stop: 04/27/24 20:59 Last Admin: 03/28/24 20:14 Dose: 40 mg Vitamin D (Cholecalciferol 10 Mcg (400 Units) Tab) 10 mcg PO QAM JOSÉ LUIS Stop: 04/28/24 08:59 Last Admin: 03/29/24 08:30 Dose: 10 mcg
[2024-03-29 15:20] LABS: Hematocrit (blood only) 25.8 % (37.0-47.0); Hemoglobin 8.2 g/dl (12.0-16.0)
[2024-03-29] MEDS: OPTIRAY 320 100ml IV ONE (15:30)
--- NOTE | 2024-03-29 16:07 | CT Scan Report ---
CT OF THE ABDOMEN AND PELVIS WITH AND WITHOUT CONTRAST CLINICAL HISTORY: Anemia, edema, recent D C,hx of vaginal bleed. COMPARISON STUDY: CT of the abdomen and pelvis March 18, 2024. TECHNIQUE: Axial images of the abdomen and pelvis were obtained before and after intravenous administ ration of 95 cc of Optiray 320 IV. Automated exposure control was utilized for the study. A dose lo wering technique was utilized adhering to the principles of ALARA. CT DOSE: 2075.51 mGy.cm FINDINGS: There are trace bilateral pleural effusions. Extensive body wall edema is present. This ext ends into the visualized portions of the thighs. There are no fluid collections. A right breast impla nt is partially imaged. No pneumatosis, free air or portal venous gas is present. A small amount of a bdominal and pelvic ascites has developed since prior CT March 18, 2024. There is no retroperitoneal hematoma or evidence for hemoperitoneum. The liver is cirrhotic. No hepatic lesions are identified o n this venous phase exam. Moderate gallbladder wall thickening has developed. There is no biliary or pancreatic ductal dilatation. There are diverticula of the second portion of the duodenum. Vertebral peritoneal varices are again noted. Spleen, adrenal glands and kidneys are unremarkable. Is no hydron ephrosis. There is no abdominal or pelvic lymphadenopathy. There is no evidence for a bowel obstructi on. Extensive sigmoid diverticulosis without evidence for acute diverticulitis. Masslike thickening w ithin the endometrium/endometrial cavity has significantly improved following dilatation and curettag e. There is mild wall thickening of the right colon as well as several small bowel loops. Lance ballo on within the bladder. IMPRESSION: 1. Evidence for volume overload with anasarca, small amount of ascites and trace bilateral pleural ef fusions. 2. Cirrhotic liver with retroperitoneal varices suggestive of portal hypertension. 3. Significant decrease in mass-like thickening within the endometrium following dilatation and curet tage. 4. No retroperitoneal hematoma. No CT evidence for hemoperitoneum. 5. Small and large bowel wall thickening, most pronounced within the duodenum and right colon. This i s nonspecific although could be seen in setting of hypoalbuminemia or portal hypertension. An enteroc olitis could appear similar although is considered less likely. 6. Extensive sigmoid diverticulosis. No evidence for acute diverticulitis. 7. Moderate gallbladder wall thickening, a nonspecific finding the setting of cirrhosis/volume overlo ad. Acute cholecystitis is considered unlikely. ACT 112: Negative or not required by law. Electronically signed by: Kingsley Moyer M.D. 03/29/2024 4:06 PM
--- NOTE | 2024-03-29 16:30 | Ultrasound Report ---
BILATERAL LOWER EXTREMITY VENOUS DOPPLER HISTORY: Acute pain and swelling of the lower legs b/l edema; erythema COMPARISON STUDY: None. FINDINGS: Incidental note is made of a Figueroa's cyst measuring 3.9 x 2.3 x 0.9 cm. Subcutaneous edema appears moderate. There is normal compressibility, flow, and augmentation within the bilateral lower extremity deep venous systems. IMPRESSION: No DVT within the right or left lower extremity. ACT 112: Negative or not required by law. Electronically signed by: Addison Finney M.D. 03/29/2024 4:29 PM
[2024-03-30 07:25] LABS: Hemoglobin 7.7 g/dl (12.0-16.0); Mean Corpuscular Hemoglobin 30.8 pg (25.0-34.0); Mean Corpuscular Hgb Conc 32.1 g/dL (32.0-36.0); Mean Platelet Volume 9.9 fL (9.4-12.4); Platelet Count 142 K/uL (130-400); RDW Standard Deviation 52.2 fL (36.4-46.3); White Blood Count 5.35 K/ul (4.8-10.8)
[2024-03-30 08:02] LABS: Albumin Globulin Ratio 1.1 (0.9-2); Albumin Level 1.9 gm/dl (3.4-5.0); BUN Creatinine Ratio 17.5 (10-20); Bilirubin,Total 0.9 mg/dl (0.2-1.0); Calcium 7.2 mg/dl (8.6-10.3); Creatinine Clr Calc Pharmacy 85.9 ml/min; Globulin 1.7 gm/dl (2.5-4.0); Magnesium 1.5 mg/dl (1.7-2.4); Phosphorus 3.3 mg/dl (2.5-4.9); Potassium 3.4 mmol/L (3.5-5.1); Total Protein 3.6 gm/dl (6.0-8.3)
[2024-03-30] MEDS: VANCOMYCIN LEVEL ONE (09:20)
--- NOTE | 2024-03-30 10:54 | Cardiology Progress Note ---
Date of Service March 30, 2024 Assessment & Plan (1) Anasarca: (2) Bilateral lower leg cellulitis: (3) Severe anemia: (4) Volume overload: Plan 03/29/24: Patient with recent admission for post menopausal bleeding, underwent D&C with biopsies. Final results pending (sent for 2nd opinion) During that admission she received 5 units PRBC's and IV fluids. She gained approx 15 kg during that admission. She also had issues with hyponatremia and her HCTZ was discontinued. Upon returning home, patient reported she was "full of fluid". Her edema worsened over the next few days with significant erythema developing b/l lower extremities. She also developed worsening abdominal bloating. No recurrent vaginal bleeding noted. She came back to the ER for evaluation. In ER- BNP was normal. Chest xray was clear. No hypoxia. No SOB reported. She was started on IV antibiotics for possible B/L LE cellulitis. IV lasix initiated at 20 mg IV BID. Monitor I+O's Supplement potassium. Echo is ordered and will be reviewed when available. Recommend venous duplex - ordered. Based on her symptoms, evaluation and test results thus far, her volume overload does not appear to be cardiac in nature. Along with clear chest xray, normal BNP, she has no clinical symptoms of SOB, orthopnea to suggest CHF. Discussed with hospitalist. Could be low albumin contributing as well. Hbg dropped again today. Further evaluation warranted. 03/30/24: Echo yesterday reviewed with hyperdynamic function, no significant valvular disease, no pulm hypertension and normal IVC. Normal BNP upon admission Chest xray clear. Her volume overload is not secondary to CHF exacerbation. Likely due to volume resuscitation last admission with anemia/vaginal bleeding. No significant diuresis yesterday with furosemide 20 mg IV BID. Increase to 40 mg IV BID today Mag and potassium low - supplements ordered. Monitor. CT scan yesterday demonstrates cirrhosis with portal hypertension. Consider GI evaluation. Consider adding spironolactone. Will defer to GI/hospitalist. Case discussed with hospitalist. At this time, no further cardiac testing is warranted. Will sign off. Please notify information technology manager cardiology provider with additional questions or concerns. Case discussed with Dr. Olson I spent a total of 35 minutes on the date of service in preparation, delivery, and documentation of the care provided to this patient, excluding any time spent in the performance of separately billed services. Mell Szymanski PA-C Department of Cardiology, [facility] This chart was completed in part utilizing Speech Voice Recognition Software. Grammatical errors, random word insertions, pronoun errors, and incomplete sentences are an occasional consequence of this system due to software limitations, ambient noise, and hardware issues. Any formal questions or concerns about the content, text, or information contained within the body of this dictation should be directly addressed to the provider for clarification. Admission and Anticipated Discharge Date Admission Date: March 28, 2024 Supervising Physician Co-Signing Physician Notes I have personally performed a history and physical examination on the patient. I have reviewed the advance practitioner's documentation, and I agree with, and take responsibility for the plan of care. 73-year-old female with volume overload secondary to recent hospitalization with administration of 5 units packed red blood cells, and IV fluid in setting of vaginal bleeding. Echocardiogram revealing hyperdynamic left ventricular systolic function.CT evidence of cirrhosis with portal hypertension and mild ascites. Patient admits to excessive alcohol intake. Continue diuretic therapy as per hospitalist. Consider addition of Aldactone and gastroenterology/hepatology consultation. No further cardiac testing or intervention recommended at this time. Chuy Olson DO, [facility] Subjective Patient resting in bed feeling well. She voices no cardiac complaints. Ongoing edema noted. Abdominal pain/bloating has improved since yesterday. No chest pain, shortness of breath, orthopnea, PND. No fever, cough, chills. Review of Systems Review of Systems: All systems reviewed & are unremarkable except as noted in HPI & below Physical Exam Constitutional: WD/WN, vitals as above well nourished; no acute distress Neck: trachea midline, no thyromegaly Respiratory: normal respiratory effort Auscultation: lungs clear to auscultation bilaterally Cardiovascular: Rate/Rhythm: regular rate and regular rhythm Heart Sounds: normal S1 and normal S2; no murmur Vessels: no JVD Extremities: + edema (2-3+ edema to hips with erythema ) Musculoskeletal: no cyanosis or clubbing, extremities motor strength 5/5 Neurologic: PERRL, EOMI, accommodation nl, no face palsy, no dysarthria Results & Data Vital Signs (Past 12 Hours) Vital Signs Temp Pulse Resp BP BP Pulse Ox O2 Del Method 03/30/24 09:35 118/58 L 130/66 03/30/24 07:56 37.4 C 88 18 97/55 L 98 Room Air 03/30/24 03:06 36.8 C 88 16 106/59 L 98 Room Air 03/29/24 23:06 36.7 C 86 16 93/48 L 98 Room Air Laboratory Results Cardiac Enzymes 03/30/24 Range/Units 05:50 AST 26 (13-39) U/L CBC 03/29/24 03/30/24 Range/Units 14:44 05:50 WBC 5.35 (4.8-10.8) K/ul RBC 2.50 L (4.20-5.40) M/uL Hgb 8.2 L 7.7 L (12.0-16.0) g/dl Hct 25.8 L 24.0 L (37.0-47.0) % Plt Count 142 (130-400) K/uL Comprehensive Metabolic Panel 03/30/24 Range/Units 05:50 Sodium 136 (136-145) mmol/L Potassium 3.4 L (3.5-5.1) mmol/L Chloride 107 (98-107) mmol/L Carbon Dioxide 24 (21-32) mmol/L BUN 10 (6-23) mg/dl Creatinine 0.57 L (0.6-1.2) mg/dl Glucose 74 (70-99(Fasting)) mg/dl Calcium 7.2 L (8.6-10.3) mg/dl AST 26 (13-39) U/L ALT 17 (7-52) U/L Alkaline Phosphatase 46 (34-104) U/L Total Protein 3.6 L (6.0-8.3) gm/dl Albumin 1.9 L (3.4-5.0) gm/dl Intake and Output 03/29/24 03/30/24 03/30/24 22:59 06:59 14:59 Intake Total 320 / 930 Output Total 700 / 1451 350 / 1451 Balance -380 / -521 -350 / -521 Intake: IV 320 / 690 Vancomycin HCl 1,000 mg In 270 / 540 Sodium Chloride 0.9% 250 ml @ 200 mls/hr IV Q12H [facility] Rx#: [id number] SODIUM 2,000 mg In 50 / 50 50 ml @ 100 mls/hr IV Q24H [facility] Rx#:[id number] Output: Urine Amount (Catheter) 700 / 1450 350 / 1450 Lance/Indwelling 700 / 1450 350 / 1450 Other: Weight 74 kg Weight Measurement Method Standing Scale Diagnostic Findings Telemetry reviewed: Normal sinus rhythm in the 80s. No arrhythmias noted. Echocardiogram reviewed dated 03/29/2024: LV is hyperdynamic. Ejection fraction greater than 70%. Aortic valve sclerosis moderate without significant aortic valvular stenosis. Moderate MAC with mild MR Trace TR No pulm hypertension normal IVC Abd/Pelvic CT yesterday, results reviewed: IMPRESSION: 1. Evidence for volume overload with anasarca, small amount of ascites and trace bilateral pleural effusions. 2. Cirrhotic liver with retroperitoneal varices suggestive of portal hypertension. 3. Significant decrease in mass-like thickening within the endometrium following dilatation and curettage. 4. No retroperitoneal hematoma. No CT evidence for hemoperitoneum. 5. Small and large bowel wall thickening, most pronounced within the duodenum and right colon. This is nonspecific although could be seen in setting of hypoalbuminemia or portal hypertension. An enterocolitis could appear similar although is considered less likely. 6. Extensive sigmoid diverticulosis. No evidence for acute diverticulitis. 7. Moderate gallbladder wall thickening, a nonspecific finding the setting of cirrhosis/volume overload. Acute cholecystitis is considered unlikely. Venous duplex report reviewed dated 03/29/24: IMPRESSION: No DVT within the right or left lower extremity. Medications Administered Current Inpatient Medications Acetaminophen (Acetaminophen 325 Mg Tab) 650 mg PO Q4H PRN PRN Reason: Pain or Fever Stop: 04/27/24 18:44 Calcium Carbonate (Calcium Carbonate 1250mg Tab) 1 tab PO BID JOSÉ LUIS Stop: 04/27/24 20:59 Last Admin: 03/30/24 09:27 Dose: 1 tab Famotidine (Famotidine 20 Mg Tab) 20 mg PO DAILY PRN PRN Reason: Heartburn Stop: 04/27/24 18:44 Furosemide (Furosemide Inj 20 Mg/2 Ml Vial) 40 mg IV [id number] JOSÉ LUIS Stop: 04/29/24 16:59 Gabapentin (Gabapentin 300 Mg Cap) 300 mg PO HS JOSÉ LUIS Stop: 04/27/24 20:59 Last Admin: 03/29/24 20:36 Dose: 300 mg Ceftriaxone Sodium (Rocephin) 2,000 mg in 50 mls @ 100 mls/hr IV Q24H JOSÉ LUIS Stop: 04/04/24 17:59 Last Infusion: 03/29/24 18:08 Dose: Infused Vancomycin HCl 1,000 mg/ (Sodium Chloride) 270 mls @ 200 mls/hr IV Q12H JOSÉ LUIS Stop: 04/05/24 08:59 Last Admin: 03/30/24 09:39 Dose: 200 mls/hr Magnesium Sulfate/Dextrose (Magnesium Sulfate / D5w) 1 gm in 100 mls @ 50 mls/hr IV Q2H JOSÉ LUIS Stop: 03/30/24 13:59 Lactobacillus Acidophilus (Advanced Probiotic 625 Mg Capsule) 1,250 mg PO DAILY JOSÉ LUIS Stop: 04/28/24 08:59 Last Admin: 03/30/24 09:28 Dose: 1,250 mg Magnesium Chloride (Magnesium Chloride W/Calcium 64mg Delayed Rel Tab) 128 mg PO BID JOSÉ LUIS Stop: 04/27/24 20:59 Last Admin: 03/30/24 09:28 Dose: 128 mg Melatonin (Melatonin 3 Mg Tab) 6 mg PO HS PRN PRN Reason: Sleep Stop: 04/27/24 20:59 Last Admin: 03/29/24 20:33 Dose: 6 mg Miscellaneous Information (Vancomycin Consult Active) 1 each N/A UD PRN PRN Reason: Consult Stop: 04/27/24 19:09 Norethindrone (Norethindrone 5 Mg Tab) 10 mg PO TID JOSÉ LUIS Stop: 04/27/24 20:59 Last Admin: 03/30/24 09:28 Dose: 10 mg Ondansetron HCl (Ondansetron Inj 2 Mg/Ml 2 Ml Vial) 4 mg IV Q6H PRN PRN Reason: Nausea Stop: 04/27/24 18:44 Polyethylene Glycol (Polyethylene (Miralax) 17 Gm Pack) 17 gm PO DAILY PRN PRN Reason: Constipation Stop: 04/27/24 18:44 Potassium Chloride (Potassium Chloride Crtab 20 Meq Tabcr) 20 meq PO QAM JOSÉ LUIS Stop: 04/27/24 18:44 Last Admin: 03/30/24 09:29 Dose: 20 meq Simvastatin (Simvastatin 40 Mg Tab) 40 mg PO QPM JOSÉ LUIS Stop: 04/27/24 20:59 Last Admin: 03/29/24 20:36 Dose: 40 mg Vitamin D (Cholecalciferol 10 Mcg (400 Units) Tab) 10 mcg PO QAM [facility] Stop: 04/28/24 08:59 Last Admin: 03/30/24 09:27 Dose: 10 mcg (4) Volume overload Hypervolemia type: unspecified Qualified Code(s): E87.70 - Fluid overload, unspecified
[2024-03-30] MEDS: POTASSIUM CHLORIDE CRTAB 20 MEQ TABCR PO ONE (10:55)
[2024-03-30] MEDS: MAGNESIUM SULFATE / D5W 1 GM/100 ML BAG IV SCH (11:57)
--- NOTE | 2024-03-30 15:07 | Pharmacy Report ---
Pharmacy PK ABX Note - Date of Service March 30, 2024 - Assessment and Plan Assessment * 73 year old F receiving ceftriaxone and vancomycin for treatment of possible UTI and possible b/l LE cellulitis. * Urine culture w E. faecalis resistant to tetracycline * SCr stable * Random vanocmycin level of 14.7 mcg/mL associated with therapeutic AUC of 522 mg/L.hr * Dr. Roca to assess for possible switch to PO antibiotic(s) given national IV fluid shortage Plan Vancomycin * Maintenance dose: 1000 mg IV every 12 hours * Regimen is predicted to achieve target AUC/LUIS CARLOS of 400-600 mg/L.hr * Random level in 2-3 days, or sooner pending clinical status changes Pharmacy will continue to follow and will adjust dose/frequency as necessary. Thank you. Pharmacy has transitioned to AUC monitoring for vancomycin. AUC/LUIS CARLOS is the preferred PK/PD target and is associated with decreased risk of nephrotoxicity compared to traditional trough targets.
--- NOTE | 2024-03-30 15:52 | Hospitalist Progress Note ---
Date of Service March 30, 2024 Assessment & Plan (1) Volume overload: (2) Anasarca: (3) Alcoholic cirrhosis of liver: (4) Portal hypertension: (5) Bilateral lower leg cellulitis: (6) Chronic anemia: (7) Chronic hyponatremia: (8) Hypocalcemia: (9) Ambulatory dysfunction: (10) Suspected urinary tract infection: (11) Bacteriuria, asymptomatic: Plan Patient with severe volume overload/anasarca due to extensive volume resuscitation from her previous hospitalization for severe blood loss anemia. Exacerbated from possible alcohol induced cirrhosis No evidence of heart failure Continue IV diuresis with Lasix Start Aldactone, this will be a chronic med for her in the setting of cirrhosis Check hepatitis panel Recommend outpatient GI consultation for presumed alcohol induced cirrhosis and portal hypertension Replace magnesium and potassium Follow electrolytes Her hemoglobin has been fluctuating, I suspect this is more function of her volume status at the time. There does not appear to be any ongoing blood loss. Patient may take some time to recover from the severe blood loss that she had previously and is still recovering from. Transition to oral antibiotics, suspect findings the lower extremity more likely venous stasis dermatitis and a function of the edema then a severe cellulitis. Question if she has a true urinary tract infection versus chronic bacteriuria. Will transition to short course of oral Augmentin. Patient did admit to a significant amount of alcohol use, discussion with her and cutting back and if eliminating alcohol altogether Admission and Anticipated Discharge Date Admission Date: March 28, 2024 Subjective Patient states she is feeling better. Noticeable less swelling. Does admit to drinking at least 6 glasses of wine on a daily basis Physical Exam Physical Exam: Constitutional: Alert, nontoxic HEENT: Mucous membranes moist. Lungs: Decreased breath sounds bilaterally few crackles at the bases bilaterally CV: S1-S2, regular Abdomen: Soft, nontender, nondistended Extremities: Significant anasarca lower extremities, venous stasis dermatitis, Neuro: No focal deficits Psych: Cooperative, normal mood, no signs of withdrawal Results & Data Results & Data Vital Signs (Past 12 Hours) Vital Signs Temp Pulse Resp BP BP Pulse Ox O2 Del Method 03/30/24 11:49 36.5 C 90 18 106/55 L 95 Room Air 03/30/24 09:35 118/58 L 130/66 03/30/24 07:56 37.4 C 88 18 97/55 L 98 Room Air Diagnostic Findings Reviewed imaging, laboratory and diagnostic studies. Pertinent findings as below. Magnesium 1.5 Potassium 3.4 Sodium 136 Hemoglobin 7.7 Platelets 142 Urine culture growing Enterococcus (1) Volume overload Hypervolemia type: unspecified Qualified Code(s): E87.70 - Fluid overload, unspecified
[2024-03-30] MEDS: POTASSIUM CHLORIDE CRTAB 20 MEQ TABCR PO STA (16:12)
[2024-03-30] MEDS: FUROSEMIDE INJ 20 MG/2 ML VIAL IV SCH (16:12)
[2024-03-30] MEDS: AMOXICILLIN/CLAVULANATE 875 MG TAB PO SCH (16:42)
[2024-03-31 07:02] LABS: Hematocrit (blood only) 24.2 % (37.0-47.0); Mean Corpuscular Hemoglobin 31.1 pg (25.0-34.0); Mean Corpuscular Hgb Conc 33.1 g/dL (32.0-36.0); Mean Corpuscular Volume 94.2 fL (80.0-100.0); Mean Platelet Volume 9.8 fL (9.4-12.4); Platelet Count 171 K/uL (130-400); RDW Coefficient of Variation 14.6 % (11.5-14.5); RDW Standard Deviation 50.3 fL (36.4-46.3); Red Blood Count 2.57 M/uL (4.20-5.40); White Blood Count 6.21 K/ul (4.8-10.8)
[2024-03-31 07:27] LABS: BUN Creatinine Ratio 17.6 (10-20); Bilirubin Direct 0.5 mg/dl (0-0.2); Bilirubin,Total 1.2 mg/dl (0.2-1.0); Calcium 7.1 mg/dl (8.6-10.3); Creatinine Clr Calc Pharmacy 95.8 ml/min; Magnesium 1.7 mg/dl (1.7-2.4)
[2024-03-31 07:45] VITALS: RESP 18
[2024-03-31] MEDS: POTASSIUM CHLORIDE CRTAB 20 MEQ TABCR PO SCH (08:15)
[2024-03-31] MEDS: SPIRONOLACTONE 25 MG TAB PO SCH (08:16)
[2024-03-31 09:19] LABS: Hep B Surface Ag with confirm Negative (Negative)
[2024-03-31 09:24] LABS: Hep C Ab Rflx HepCQuant RNA Negative (Negative)
--- NOTE | 2024-03-31 16:37 | Hospitalist Progress Note ---
Date of Service March 31, 2024 Assessment & Plan (1) Volume overload: (2) Anasarca: (3) Alcoholic cirrhosis of liver: (4) Portal hypertension: (5) Bilateral lower leg cellulitis: (6) Chronic anemia: (7) Chronic hyponatremia: (8) Hypocalcemia: (9) Ambulatory dysfunction: (10) Suspected urinary tract infection: (11) Bacteriuria, asymptomatic: Plan Patient still significantly volume overloaded Continue IV diuresis Continue to monitor electrolytes and renal function Mike wraps to lower extremities Continue oral Augmentin Possible discharge tomorrow if continues to show improvement with outpatient diuresis. Admission and Anticipated Discharge Date Admission Date: March 28, 2024 Subjective Patient feeling well, reports walked around the unit without dyspnea yesterday. Really would like to get home Physical Exam Physical Exam: Constitutional: Alert, sitting up in chair HEENT: Mucous membranes moist. Lungs: Clear to auscultation, decreased, no wheezes rales or rhonchi CV: S1-S2, regular Abdomen: Soft, nontender, nondistended Extremities: Thick puffy anasarca edema up through thighs and lower abdomen, some edema in arms Neuro: No focal deficits Psych: Cooperative, normal mood Results & Data Results & Data Vital Signs (Past 12 Hours) Vital Signs Temp Pulse Resp BP BP Pulse Ox O2 Del Method 03/31/24 14:32 36.6 C 87 18 106/66 100 Room Air 03/31/24 07:41 36.2 C L 87 18 103/61 100 Room Air Laboratory Results Reviewed imaging, laboratory and diagnostic studies. Pertinent findings as below. Hemoglobin 8.0 stable Potassium 4.0 Creatinine 0.51 (1) Volume overload Hypervolemia type: unspecified Qualified Code(s): E87.70 - Fluid overload, unspecified
[2024-04-01 06:44] LABS: BUN Creatinine Ratio 15.4 (10-20); Calcium 7.2 mg/dl (8.6-10.3); Creatinine Clr Calc Pharmacy 93.7 ml/min; Potassium 3.7 mmol/L (3.5-5.1)
[2024-04-01] MEDS: SPIRONOLACTONE 25 MG TAB PO STA (10:30)
[2024-04-01] MEDS: BUMETANIDE 2 MG in SYRINGE 0 ML IV SCH (11:03)
[2024-04-01 13:08] LABS: Hepatitis A Antibody IgM NON-REACTIVE (NON-REACTIVE); Hepatitis B Core Antibody IgM NON-REACTIVE (NON-REACTIVE)
--- NOTE | 2024-04-01 13:32 | Hospitalist Progress Note ---
Date of Service April 01, 2024 Assessment & Plan (1) Volume overload: (2) Anasarca: (3) Alcoholic cirrhosis of liver: (4) Portal hypertension: (5) Bilateral lower leg cellulitis: (6) Chronic anemia: (7) Chronic hyponatremia: (8) Hypocalcemia: (9) Ambulatory dysfunction: (10) Suspected urinary tract infection: (11) Bacteriuria, asymptomatic: Plan Patient seems of slow response to the IV Lasix. Has not diuresed much significantly based on intake and output and weight. Discontinue Lasix Trial of IV Bumex 3 times daily Continue to monitor renal function electrolytes Would like to see patient closer to her dry weight prior to discharge. Patient is agreeable to staying at least another day. Admission and Anticipated Discharge Date Admission Date: March 28, 2024 Subjective Patient still very edematous. Does not seem to have lost much fluid weight over the last 24 hours. Physical Exam Physical Exam: Constitutional: Alert, nontoxic HEENT: Mucous membranes moist. Lungs: Clear to auscultation, decreased, no wheezes rales or rhonchi CV: S1-S2, regular Abdomen: Soft, nontender, nondistended Extremities: Anasarca with significant pitting edema in lower and upper extremities. Lower extremity now with Mike wrap's. Now more ruborous in the upper thighs, this is due to edema, low suspicion for cellulitis. Neuro: No focal deficits Psych: Cooperative, normal mood Results & Data Results & Data Vital Signs (Past 12 Hours) Vital Signs Temp Pulse Resp BP Pulse Ox O2 Del Method 04/01/24 08:07 36.6 C 93 H 18 117/71 98 Room Air Diagnostic Findings Reviewed imaging, laboratory and diagnostic studies. Pertinent findings as below. Potassium 3.7 Creatinine 0.52 Weight 73.3 kg, dry weight around 60 kg (1) Volume overload Hypervolemia type: unspecified Qualified Code(s): E87.70 - Fluid overload, unspecified
[2024-04-01 19:57] VITALS: O2SAT 95
[2024-04-01] MEDS: SPIRONOLACTONE 100 MG TAB PO SCH (19:58)
[2024-04-02 06:57] LABS: BUN Creatinine Ratio 12.7 (10-20); Calcium 6.9 mg/dl (8.6-10.3); Creatinine Clr Calc Pharmacy 87.7 ml/min; Magnesium 1.3 mg/dl (1.7-2.4); Potassium 3.6 mmol/L (3.5-5.1)
[2024-04-02] MEDS: POTASSIUM CHLORIDE CRTAB 20 MEQ TABCR PO STA (07:27)
[2024-04-02] MEDS: MAGNESIUM SULFATE / D5W 1 GM/100 ML BAG IV SCH (07:35)
[2024-04-02 08:25] VITALS: BP 99/61; PULSE 87; TEMP 98.2
[2024-04-02] MEDS: MAGNESIUM OXIDE 400 MG TAB PO SCH (09:05)
--- NOTE | 2024-04-02 10:07 | Discharge Summary ---
Discharge Summary Date of Service April 02, 2024 Principal Dx & Hospital Course #1 = Principal Diagnosis (1) Volume overload: (2) Anasarca: (3) Alcoholic cirrhosis of liver: (4) Portal hypertension: (5) Bilateral lower leg cellulitis: (6) Chronic anemia: (7) Chronic hyponatremia: (8) Hypocalcemia: (9) Ambulatory dysfunction: (10) Suspected urinary tract infection: (11) Bacteriuria, asymptomatic: (12) Subclinical hypothyroidism: Plan Patient return to the ED after recent hospitalization where she had significant anemia and got multiple blood transfusions and underwent D&C. She gained approximately 20 pounds in fluid weight and presented with anasarca. Patient was admitted to the hospital. She was given IV diuresis. Cardiology consultation was obtained for concerns of acute onset of heart failure. Echoca rdiogram showed normal ejection fraction and on further evaluation determined that this was not due to heart failure, rather, this was due to the significant amount of fluid she received on her previous hospitalization and was volume overloaded. However, on imaging of the abdomen and pelvis there was evidence of ascites and a cirrhotic liver with evidence of portal hypertension. This is a new finding for the patient. On further history, the patient did share that she drinks at least 6 glasses of wine on a daily basis. This is most likely alcohol induced cirrhosis.Acute hepatitis panel was negative. With the cirrhosis made diuresis more difficult. She was started on Aldactone and this was titrated upward. She was initially given IV Lasix but did not respond significantly to that. Transition to IV Bumex and had a much more brisk response. The patient's symptoms of shortness of breath and dyspnea with exertion significantly improved. Her hemoglobin was trended and remained stable during this hospitalization and she did not need any additional blood transfusions. On admission her legs were bilaterally quite ruborous and erythematous. It was unclear whether this was cellulitis or due to the significant swelling. Also question whether she had asymptomatic bacteriuria versus UTI. She had no real significant urinary tract infections. She was empirically treated with anti biotics transition to oral Augmentin and will complete oral course of discharge. Her TSH was very slightly elevated, free T4 was normal. Some of her swelling and anasarca could be due to subclinical hypothyroidism and will be started on low-dose Synthroid at discharge. She was still very edematous in both her upper and lower extremities and abdomen on the day of discharge however she felt as th ough she could continue managing at home and continue with oral diuresis. She was very determined to be home for her birthday tomorrow. Had a long discussion with her recommending she see a downstream biomanufacturing technician as an outpatient for her liver disease. Also strongly strongly recommended that she stop all beer and alcohol. She was given instructions on fluid restriction. Her electrolytes were replaced. She will follow-up with her PCP and discuss outpatient gastroenterology referral with with him and follow-up with her sander portable machine for follow-up post D&C evaluation. Notes For Next Care Provider Recommend checking BMP and magnesium level in 7 to 14 days Check TSH in 4 to 6 weeks Follow-up with CONSUMER RELATIONS COMPLAINT CLERK as previously scheduled Recommend GI consultation for presumed alcohol induced cirrhosis Medication Changes From Visit Bumex added 2 times daily Aldactone added 2 times daily Admission HPI Per Admitting Provider This is a 73-year-old female who has a significant past medical history of HTN, HLD, age-related osteoporosis, history of breast cancer and elevated liver enzymes who presents to ED secondary to bilateral leg swelling and abdominal swelling x 1 week. Of significance patient was recently hospitalized 03/17 to 03/23 secondary to vaginal bleeding and profound anemia. On day of admission she was found to have a hemoglobin of 6.6 in which 1 week prior hemoglobin was 12.4. During her entire hospitalization she had 5 units of packed PRBCs. CONSUMER RELATIONS COMPLAINT CLERK was consulted and patient underwent DC and see with myomectomy on 03/22/2024. She was also started on norethindrone as per recommendation by gynecology. Afte r undergoing her D&C she had minimal bleeding. Her hospital course was complicated by hyponatremia in which nephrology was assisting on managing. At that time she was on HCTZ and this was discontinued. She further received IV fluids. Upon discharge patient noticed significant increase in her lower extremity swelling as well as swelling in her abdomen. This cause difficulty with her mobility and required her sister to assist her even to just get out of bed. She reports her baseline weight is approximately 140 pounds and she is now up to 162. She denies any fever, chills, sweats, lightheadedness, dizziness, chest pain, shortness of breath, HERNANDEZ, nausea, vomiting or abdominal pain. She further denies any vaginal bleeding, dysuria, increased urgency or frequency with urination. In ED patient remained hemodynamically stable. Her sodium was stable at 133. Her BUN and creatinine was stable at 11 and .57. Her UA was concerning for possible infection. Her chest x-ray was negative for any acute cardiopulmonary abnormality. A Lance catheter was placed due to her limited mobility. She received 20 mg of IV Lasix and thus far is put out 600 mL of urine output. Admission Exam Per Admitting Provider See H&P Discharge Exam Constitutional: Alert, no distress, nontoxic HEENT: Mucous membranes moist. Lungs: Clear to auscultation, decreased, no wheezes rales or rhonchi CV: S1-S2, regular Abdomen: Soft, nontender, nondistended Extremities: Soft, puffy edema in lower extremities through thighs and lower abdomen as well as upper arms Neuro: No focal deficits Psych: Cooperative, normal mood Updated Medication List Medication Instructions Recorded Confirmed Type simvastatin 40 mg tablet 40 mg PO QPM #0 tabs 03/11/17 03/28/24 History gabapentin 300 mg capsule 300 mg PO HS #30 caps 03/15/24 03/28/24 Rx calcium 500 mg (as 1 tab PO BID #60 tabs 03/23/24 03/28/24 Rx carbonate)-vitamin D3 10 mcg (400 unit) tablet (Calcium 500 + D) magnesium chloride 64 mg 128 mg (2 x 64 mg) PO BID #60 tabs 03/23/24 03/28/24 Rx (magnesium chloride) tablet,delayed release (Mag 64) norethindrone acetate 5 mg tablet 10 mg (2 x 5 mg) PO TID 10 days 03/23/24 03/28/24 Rx #60 tabs L.acidop,casei,lactis,rham-B.lact,chacha 1 cap PO DAILY #30 caps 04/02/24 Rx 625 mg (10 billion cell) capsule (Advanced Probiotic) amoxicillin 875 mg-potassium 1 tab PO BIDM 4 days #8 tabs 04/02/24 Rx clavulanate 125 mg tablet bumetanide 2 mg tablet 2 mg PO BID #60 tabs 04/02/24 Rx levothyroxine 25 mcg tablet 25 mcg PO DAILY #30 tabs 04/02/24 Rx (Synthroid) spironolactone 100 mg tablet 100 mg PO BID 30 days #60 tabs 04/02/24 Rx Hospital Stay Data Consultations 03/28/24 15:43 ED Decision to Admit Stat 03/28/24 18:45 Consult Cardiology Routine Diagnostic Imagining Performed 03/29/24 12:17 US venous duplex leg [US venous doppler LE BI] Routine 03/29/24 14:25 CT abdomen pelvis wo/w con Urgent Reviewed imaging, laboratory and diagnostic studies. Pertinent findings as below. Hepatitis panel negative Hemoglobin 8.0 Sodium 135 Potassium 3.6 Magnesium 1.3, replaced prior to discharge Total bilirubin 1.2 Direct bilirubin 0.5 AST ALT and alk phos within normal range TSH 6.0 Free T41.02, normal range Urine culture showing Enterococcus, suspect this is asymptomatic bacteriuria Echocardiogram showed ejection fraction greater than 70% no significant aortic stenosis. I refer you to the full report for details Pending Results Patient Have Any Pending Studies at Discharge: No Discharge Instructions Given to Patient (Per Discharging Provider) Recommend continuing to wrap your legs/compression stockings Recommend weighing yourself daily, keeping a log and taking it to your primary care physicians office for review Monitor electrolytes and kidney function with your primary care doctor Recommend you see a downstream biomanufacturing technician to discuss your liver disease Strongly recommend you stop all beer and alcohol On review of your laboratory studies, shows that your thyroid is slightly underactive. You will be given a prescription to start some thyroid hormone replacement. This may help with resolving your swelling as well. Total Time Total Time Spent Total Time Spent (In Minutes): 40
== END 2024-04-02 11:30 | disposition home health service (06) | DRG 433 ==
LOC: ED 12:18 → SUATTDRO 15:58 → 2E 15:58 → 3E 03-30 19:06

== ENCOUNTER 2024-04-24 12:21 | Inpatient (IN) ==
--- NOTE | 2024-04-24 12:34 | ED Triage Note ---
Date of Service April 24, 2024 Provider in Triage Author: Rich Graf History of Present Illness This patient was briefly evaluated while in triage. An abbreviated physical exam was performed. This patient is a 74-year-old Female who presents to the ED for evaluation recent admissions for heart failure generalized weakness and fatigue, confusion, 20# weight loss in 2 weeks mild vaginal bleeding (s/p D&C in February) Physical Exam GENERAL: NAD CARDIOVASCULAR: RRR RESPIRATORY: CTA Initial orders for labs and / or imaging were placed and patient was placed in the waiting area until a bed is available. Please see further documentation for the full ED course.
[2024-04-24 13:33] LABS: Alanine Aminotransferase 15 U/L (7-52); Albumin Level 3.5 gm/dl (3.4-5.0); Alkaline Phosphatase 76 U/L (34-104); Anion Gap 10 (3-11); Aspartate Aminotransferase 29 U/L (13-39); BUN Creatinine Ratio 19.4 (10-20); Bilirubin,Total 1.5 mg/dl (0.2-1.0); Blood Urea Nitrogen 31 mg/dl (6-23); Calcium 10.4 mg/dl (8.6-10.3); Carbon Dioxide 25 mmol/L (21-32); Chloride 90 mmol/L (98-107); Globulin 3.5 gm/dl (2.5-4.0); Glucose 106 mg/dl (70-99(Fasting)); Potassium 4.7 mmol/L (3.5-5.1); Sodium 125 mmol/L (136-145)
[2024-04-24 13:38] LABS: Troponin I High Sensitivity 9.1 pg/ml (0-14)
--- NOTE | 2024-04-24 13:47 | XRay Report ---
XR chest 1V not portable HISTORY: 74 years-old Female weakness COMPARISON: 03/28/2024 TECHNIQUE: PA view of the chest FINDINGS: Numerous chronic right rib fracture deformities. Heart size is within normal limits. The lungs appear clear. No pneumothorax, pleural effusion or pulmonary edema. Chronic interstitial coarsening at the lung bases. Partially imaged scoliotic curvature of the lumbar spine. IMPRESSION: No acute process of the chest. ACT 112: Negative or not required by law. The above report was generated using voice recognition software. It may contain grammatical, syntax o r spelling errors. Electronically signed by: Addison Finney M.D. 04/24/2024 1:45 PM
[2024-04-24 13:48] LABS: Thyroid Stimulating Hormone 1.469 uIu/ml (0.300-4.500)
[2024-04-24 13:50] LABS: Basophils # (auto) 0.05 K/uL (0.00-0.20); Basophils % (auto) 0.6 %; Eosinophils # (auto) 0.15 K/uL (0.00-0.50); Eosinophils % (auto) 1.8 %; Hematocrit (blood only) 37.6 % (37.0-47.0); Hemoglobin 12.4 g/dl (12.0-16.0); Immature Granulocytes # (auto) 0.04 K/uL (0.01-0.20); Immature Granulocytes % (auto) 0.5 %; Lymphocytes # (auto) 1.41 K/uL (1.20-3.40); Lymphocytes % (auto) 17.4 %; Mean Corpuscular Hemoglobin 29.7 pg (25.0-34.0); Mean Corpuscular Volume 90.2 fL (80.0-100.0); Mean Platelet Volume 11.6 fL (9.4-12.4); Monocytes % (auto) 14.8 %; Neutrophils # (auto) 5.26 K/uL (1.40-6.50); Neutrophils % (auto) 64.9 %; Polychromasia 1+; RDW Coefficient of Variation 13.4 % (11.5-14.5); RDW Standard Deviation 43.8 fL (36.4-46.3); Red Blood Count 4.17 M/uL (4.20-5.40); White Blood Count 8.11 K/ul (4.8-10.8)
[2024-04-24 13:51] LABS: INR 1.1 (0.9-1.1); Prothrombin Time 11.4 Seconds (9.0-12.0)
--- NOTE | 2024-04-24 15:53 | Emergency Department Note ---
Impression & Plan Weakness, ELVA (acute kidney injury), Acute hyponatremia ED Provider Note Provider: Audie Beckett MD DATE OF SERVICE: 04/24/2024 CHIEF COMPLAINT: Weakness, shakiness, weight loss HISTORY OF PRESENT ILLNESS: Patient is a 74-year-old female history of hypothyroidism, liver cirrhosis, UTIs, heart failure, and COVID in the last 2 months presenting here today with sister. Significant weakness and weight loss over the last 2 weeks. Shaky but likely has not fallen. No syncope or loss of conscious but quite weak and fatigued and sleeping a lot. Having some more confusion. Was hospitalized here in February after a D&C for abnormal vaginal bleeding and had significant anemia. Had COVID. Hospitalized the second time with hyponatremia and fluid overload. Has been taking Bumex twice daily since discharge. Home health is fitted some but they have not heard back from their doctor if they should reduce the Bumex. Patient states she has no swelling. States she feels a bit confused at times and thought the call alvarado in the room was initially a phone and tried to dial on it. Not having significant focal numbness or weakness. Patient and patient's sister do report that vaginal bleeding has restarted to some degree over the last week or so but minimal. PAST MEDICAL HISTORY: As noted above MEDICATIONS: Reviewed home medications SOCIAL HISTORY: Non-smoker PHYSICAL EXAM: GENERAL: alert and oriented in no acute distress on stretcher fatigued in appearance Head: normocephalic and atraumatic EYES: No injection, discharge or icterus. EOMI. NECK: Trachea midline. ENT: Mucous membranes pink and moist LUNGS: Airway patent. No retractions. Breath sounds clear with good air entry bilaterally. HEART: Regular rate and rhythm. No chest wall tenderness ABDOMEN: Soft and non-tender, without guarding or rebound. SKIN: Acyanotic, warm, dry, without rashes EXTREMITIES: Without swelling, tenderness or deformity NEUROLOGICAL: No focal deficits. No aphasia. No facial droop or slurred speech. Normal strength and tone in the extremities. Sensation to gross touch normal. EK beats minute normal sinus rhythm. No PVC or PAC. No acute ST segment elevation or depression with a QTc of 450. CONTINUOUS CARDIAC MONITORING: was ordered and showed a heart rate of 80s to 90s bpm in normal sinus rhythm Patient's laboratory studies and imaging reviewed. Differential includes Infection, dehydration, metabolic abnormality, hypo/hyperglycemia, electrolyte disturbance, anemia, hypoxia, cardiac sources, intracerebral event, toxicologic, neurologic, as well as other pathologies. IMPRESSION/MEDICAL DECISION MAKING: Patient afebrile. No URI symptoms reported of significance. Not hypoxic here. Denies any pain. Little bit of light vaginal bleeding is restarted but not significantly anemic at this time. Blood work does show recurrence and now worsening hyponatremia sodium 125 may be contributing. Has been on Bumex twice daily and has been losing weight and appears quite thin in the legs at this time. Question of she has possibly been a bit over diuresed. Does have an ELVA on blood work and will gently give some IV fluid hydration. Has not had much appetite or intake. No fevers reported no leukocytosis and doubt infection. UA is pending to exclude occult UTI however. Thyroid function is normal. No evidence of elevated troponin or acute cardiac disease. Ammonia minimally elevated 87 unsure if this is contributing as there is no priors in the past for comparison. Will give some gentle IV fluid hydration. Given her weakness and hyponatremia as well as need for adjustment of her diuretics with the ELVA, will patient was agreeable for staying here in the hospital and the hospitalist was contacted. DIAGNOSIS: Weakness, hyponatremia, ELVA DISPOSITION: Hospitalist will evaluate Patient was agreeable with this plan. Past Med/Surg History Problem List Acute hyponatremia (Acute) ELVA (acute kidney injury) (Acute) Weakness (Acute) Subclinical hypothyroidism Bacteriuria, asymptomatic Suspected urinary tract infection Chronic anemia Portal hypertension Alcoholic cirrhosis of liver Volume overload Acute UTI (urinary tract infection) (Acute) Anasarca (Acute) Bilateral lower leg cellulitis Elevated LFTs Hypocalcemia Ambulatory dysfunction Acute on chronic heart failure with preserved ejection fraction (HFpEF) Severe anemia Chronic hyponatremia Post-menopausal bleeding Spondylolisthesis, lumbar region Lumbosacral spondylosis Degenerative joint disease (DJD) of lumbar spine Scoliosis of lumbar region due to degenerative disease of spine in adult COVID-19 (Acute) 02/28/24 Sacroiliitis Pneumonia (Acute) 04/21/16 Cancer of central portion of right female breast (Acute) "Palpable mass found on physical examination Status post mammography and ultrasound Status post core needle biopsy 09/17/2016 Invasive carcinoma Estrogen receptor negative, progesterone receptor negative and HER-2/agustin negative. 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 ypT1c ypN0 M0 G3 " Hypertension (Chronic) Medical History Spondylolisthesis, lumbar region Scoliosis of lumbar region due to degenerative disease of spine in adult Sacroiliitis Postural dizziness hx, found to have a recent UTI 02/28/24; no current symptoms History of pneumonia 2016, no recent issues Lumbosacral spondylosis Degenerative joint disease (DJD) of lumbar spine Hx of recurrent urinary tract infection most recent 02/28/24, no further symptoms Lumbosacral spondylosis History of COVID-19 02/28/24, asymptomatic>resolved Hx of breast cancer dx 2017, right breast mastectomy>no limb restriction Hypertension Hyperlipidemia Surgical History Post-operative state History of bilateral tubal ligation Hx of colonoscopy Hx of eye surgery age 4 Hx of tonsillectomy Hx of right mastectomy no limb restriction Family History Family/Other Breast cancer Herself Mother Myocardial infarction Denies family history of Ovarian cancer Colorectal cancer Social History Smoking Status: Former smoker Tobacco Type: Cigarettes Second Hand Exposure: No; Do You Dip or Chew Tobacco: No; Hx Alcohol Use: Yes Alcohol type: wine Hx Substance Use: No Preferred Language: Korean Communication Ability: Effective Visual Impairment: No Limitations Digital Pre Press Operator Required: No Beliefs That Will Affect Care: None Current Living Situation: Family Current Living Situation Comment: lives with sister Other Information That Helps Us Care for You: No Feels Safe at Home: Yes Safety Concerns: Feels Safe At This Time Assistive Devices: None Allergies Allergies Allergy/AdvReac Type Severity Reaction Status Date / Time hydrochlorothiazide AdvReac Intermediate Unknown Verified 04/07/24 13:23 Home Meds Home Medications Medication Instructions Recorded Confirmed simvastatin 40 mg tablet 40 mg PO QPM #0 tabs 03/11/17 04/24/24 Previous Rx's Medication Instructions Recorded gabapentin 300 mg capsule 300 mg PO HS #30 caps 03/15/24 calcium 500 mg (as 1 tab PO BID #60 tabs 03/23/24 carbonate)-vitamin D3 10 mcg (400 unit) tablet (Calcium 500 + D) magnesium chloride 64 mg 128 mg (2 x 64 mg) PO BID #60 tabs 03/23/24 (magnesium chloride) tablet,delayed release (Mag 64) L.acidop,casei,lactis,rham-B.lact,chacha 1 cap PO DAILY #30 caps 04/02/24 625 mg (10 billion cell) capsule (Advanced Probiotic) bumetanide 2 mg tablet 2 mg PO BID #60 tabs 04/02/24 levothyroxine 25 mcg tablet 25 mcg PO DAILY #30 tabs 04/02/24 (Synthroid) spironolactone 100 mg tablet 100 mg PO BID 30 days #60 tabs 04/02/24 Results & Data (ED) Vital Signs Vital Signs - 24 hr 04/24/24 12:31 04/24/24 15:35 04/24/24 15:47 Temperature 36.2 C L Temperature Source Temporal Artery Scan Pulse Rate 101 H Pulse Rate [Left Apical] 87 Respiratory Rate 21 21 Respiratory Effort / Characteristics Non-Labored Spontaneous Respiratory Depth Normal Respiratory Pattern Regular Blood Pressure 105/70 Blood Pressure [Right Arm] 141/82 H Blood Pressure Mean 81 Blood Pressure Mean [Right Arm] 101 Pulse Oximetry 99 98 Oxygen Delivery Method Room Air Room Air Sepsis Recent Fever Within 48 Hours No Sepsis New/Unexplained Change in Mental Status N/A Sepsis Action Taken by Nursing Physician Notified 04/24/24 15:54 04/24/24 16:15 04/24/24 16:30 Temperature Temperature Source Pulse Rate 88 83 79 Pulse Rate [Left Apical] Respiratory Rate 15 14 Respiratory Effort / Characteristics Respiratory Depth Respiratory Pattern Blood Pressure Blood Pressure [Right Arm] Blood Pressure Mean Blood Pressure Mean [Right Arm] Pulse Oximetry 98 98 Oxygen Delivery Method Room Air Room Air Sepsis Recent Fever Within 48 Hours Sepsis New/Unexplained Change in Mental Status Sepsis Action Taken by Nursing 04/24/24 16:51 Temperature Temperature Source Pulse Rate 88 Pulse Rate [Left Apical] Respiratory Rate 17 Respiratory Effort / Characteristics Respiratory Depth Respiratory Pattern Blood Pressure Blood Pressure [Right Arm] Blood Pressure Mean Blood Pressure Mean [Right Arm] Pulse Oximetry 98 Oxygen Delivery Method Room Air Sepsis Recent Fever Within 48 Hours Sepsis New/Unexplained Change in Mental Status Sepsis Action Taken by Nursing Laboratory Data 04/24/24 12:58 04/24/24 19:18 Lab Results 04/24/24 04/24/24 04/24/24 Range/Units 12:50 12:58 13:02 WBC 8.11 (4.8-10.8) K/ul RBC 4.17 L (4.20-5.40) M/uL Hgb 12.4 (12.0-16.0) g/dl Hct 37.6 (37.0-47.0) % MCV 90.2 (80.0-100.0) fL MCH 29.7 (25.0-34.0) pg MCHC 33.0 (32.0-36.0) g/dL RDW Std Deviation 43.8 (36.4-46.3) fL RDW Coeff of Dorian 13.4 (11.5-14.5) % Plt Count (130-400) K/uL MPV 11.6 (9.4-12.4) fL Immature Gran % (Auto) 0.5 % Neut % (Auto) 64.9 % Lymph % (Auto) 17.4 % [place] % (Auto) 14.8 % Eos % (Auto) 1.8 % Baso % (Auto) 0.6 % Neut # (Auto) 5.26 (1.40-6.50) K/uL Lymph # (Auto) 1.41 (1.20-3.40) K/uL [place] # (Auto) 1.20 H (0.11-0.59) K/uL Eos # (Auto) 0.15 (0.00-0.50) K/uL Baso # (Auto) 0.05 (0.00-0.20) K/uL Immature Gran # (Auto) 0.04 (0.01-0.20) K/uL Polychromasia 1+ PT 11.4 (9.0-12.0) Seconds INR 1.1 (0.9-1.1) Sodium 125 L (136-145) mmol/L Potassium 4.7 (3.5-5.1) mmol/L Chloride 90 L (98-107) mmol/L Carbon Dioxide 25 (21-32) mmol/L Anion Gap 10 (3-11) BUN 31 H (6-23) mg/dl Creatinine 1.60 H (0.6-1.2) mg/dl Est Cr Clr Drug Dosing Not Reportable eGFR 33.22 BUN/Creatinine Ratio 19.4 (10-20) Glucose 106 H (70-99(Fasting)) mg/dl Osmolality 271 L (280-300) mOsm/kg Lactate 1.9 (0.4-2.0) mmol/L Calcium 10.4 H (8.6-10.3) mg/dl Magnesium 2.0 (1.7-2.4) mg/dl Total Bilirubin 1.5 H (0.2-1.0) mg/dl AST 29 (13-39) U/L ALT 15 (7-52) U/L Alkaline Phosphatase 76 (34-104) U/L Ammonia 87.0 H (18-72) umol/L Troponin I High Sens 9.1 (0-14) pg/ml B-Natriuretic Peptide 24 (0-100) pg/ml Total Protein 7.0 (6.0-8.3) gm/dl Albumin 3.5 (3.4-5.0) gm/dl Globulin 3.5 (2.5-4.0) gm/dl Albumin/Globulin Ratio 1.0 (0.9-2) TSH 1.469 (0.300-4.500) uIu/ml Administered Medications Calcium/Vitamin D (Calcium 600mg + Vit D 400 Iu Tab) 1 tab PO DAILY JOSÉ LUIS Stop: 05/24/24 18:59 Last Admin: 04/24/24 19:32 Dose: 1 tab Documented By: BRITTANI Gabapentin (Gabapentin 300 Mg Cap) 300 mg PO HS JOSÉ LUIS Stop: 05/24/24 20:59 Last Admin: 04/24/24 19:32 Dose: 300 mg Documented By: BRITTANI Sodium Chloride (Nss) 500 mls @ 65 mls/hr IV .Q7H42M JOSÉ LUIS Stop: 04/25/24 11:08 Last Admin: 04/24/24 19:38 Dose: 65 mls/hr Documented By: BRITTANI Lactulose (Lactulose Syrup 20 Gm/30 Ml Udc) 20 gm PO TID JOSÉ LUIS Stop: 05/24/24 20:59 Last Admin: 04/24/24 19:31 Dose: 20 gm Documented By: BRITTANI Magnesium Chloride (Magnesium Chloride W/Calcium 64mg Delayed Rel Tab) 128 mg PO BID JOSÉ LUIS Stop: 05/24/24 20:59 Last Admin: 04/24/24 19:31 Dose: 128 mg Documented By: BRITTANI Simvastatin (Simvastatin 40 Mg Tab) 40 mg PO QPM JOSÉ LUIS Stop: 05/24/24 20:59 Last Admin: 04/24/24 19:31 Dose: 40 mg Documented By: BRITTANI Discontinued Medications Sodium Chloride (Nss) 500 mls @ 999 mls/hr IV .Q31M ONE Stop: 04/24/24 16:20 Last Infusion: 04/24/24 17:42 Dose: Infused Documented By: Admin: 04/24/24 15:55 Dose: 999 mls/hr Documented By: VIANEY Sodium Chloride (Nss) 500 mls @ 65 mls/hr IV .Q7H42M [facility] Stop: 04/25/24 01:41 Last Infusion: 04/24/24 19:38 Dose: Infused Documented By: Admin: 04/24/24 19:37 Dose: 65 mls/hr Documented By: BRITTANI Imaging Data Radiologist's Impression: Chest X-Ray 04/24/24 12:34 XR chest 1V not portable HISTORY: 74 years-old Female weakness COMPARISON: 03/28/2024 TECHNIQUE: PA view of the chest FINDINGS: Numerous chronic right rib fracture deformities. Heart size is within normal limits. The lungs appear clear. No pneumothorax, pleural effusion or pulmonary edema. Chronic interstitial coarsening at the lung bases. Partially imaged scoliotic curvature of the lumbar spine. IMPRESSION: No acute process of the chest. ACT 112: Negative or not required by law. The above report was generated using voice recognition software. It may contain grammatical, syntax or spelling errors. Electronically signed by: Addison Finney M.D. 04/24/2024 1:45 PM Discharge Plan Visit Data Chief Complaint: Weakness Stated Complaint: WEAKNESS, SHAKING ED Provider: Audie Beckett Discharge Problem: Weakness, ELVA (acute kidney injury), Acute hyponatremia Patient Disposition: Being Evaluated by Hospitalist Discharge Instructions Interventions: ED Discharge Assessment Last Done: 04/24/24 17:50
[2024-04-24] MEDS: SODIUM CHLORIDE 0.9% 500 ML IV ONE (15:55)
--- NOTE | 2024-04-24 16:49 | History & Physical Report ---
Date of Service April 24, 2024 Assessment & Plan (1) Acute hyponatremia: (2) ELVA (acute kidney injury): (3) Weakness: (4) Alcoholic cirrhosis of liver: (5) Hypertension: (6) Hyperlipidemia: Plan This is a 74-year-old female with PMH of alcoholic cirrhosis, hypertension, hyperlipidemia, hypothyroidism and other medical problems listed below who presents from home with confusion and weakness x 1 week and was found to have hyponatremia and ELVA. Acute metabolic encephalopathy 2/2 hyponatremia and ? hepatic encephalopathy discussed below Hyponatremia ? Chronic process with Na of 119 on 03/17 admission (nephro consulted, lisinopril/hctz discontinued at that time) but presenting today with Na of 125 in setting of confusion, weakness Recently started on Bumex 2mg BID, spironolactone 100mg BID for new dx of alco holic cirrhosis seen on CT abd/pelvis -> appears clinically dry on exam, serum osm 271 Intial Na of 125 -> repeat Na similar Continue NSS overnight at 65 mls/hr Repeat BMP in AM Hold diuretics Routine nephro consult ELVA Cr 1.6 (0.55 baseline) In setting of new diuretics, appears dehydration Hold diuretics, avoid nephrotoxic agents, gentle fluid resuscitation Repeat BMP in AM Alcoholic cirrhosis Seen on CT abd/pelvis during Mar 2024 admission for 20 pound weight gain History of intermediate frame tender etoh use, still drinking 4+ glasses of wine nightly per sister at bedside Discharged on Bumex 2mg BID and spironolactone 100mg BID - will hold for now 2/2 above Established with [facility] but cannot be seen until mid-July No abd pain, Tbili 1.5, AST/ALT wnl Ammonia 87.0, will start lactulose Considering hepatic encephalopathy as cause of confusion but likely multifactorial given hyponatremia as well Routine gastroenterology consult Vaginal bleeding Developed severe anemia requiring 5u prbcs when admitted in Mar 2024 S/p D&C with myomectomy Following with [facility] Bleeding recently started again but small amt, hgb stable Monitor Hypothyroidism Continue recently started levothyroxine. F/u for outpatient TFTs Weight loss Has reportedly lost 15-20# since last hospitalization Poor diet per sister, chronic etoh use Integration Software Developer consulted for recs DVT Ppx: SCDs given ongoing vaginal bleeding Code status: FULL PCP: Dallas Pacheco Dispo: Admitted to PCU Patient seen in collaboration with Dr. Rosado. Please see addendum. I spent a total of 75 minutes coordinating, documenting, and providing care for this patient excluding time spent in the performance of separately billed services. History of Present Illness Chief Complaint: Nausea, vomiting, weakness Primary Care Provider: Kenny Pacheco DO This is a 74-year-old female with PMH of alcoholic cirrhosis, hypertension, hyperlipidemia, hypothyroidism and other medical problems listed below who presents from home with confusion and weakness x 1 week. Patient with recent admissions in the past few months, starting hospitalization 03/17- for vaginal bleeding and profound anemia requiring 5 units of packed red blood cells throughout hospitalization. OBGYN was consulted and patient underwent D&C with myomectomy. Was also started on norethindrone at that time. Was then admitted 03/28- for 20 pound weight gain. 2D echo showed normal EF but CT abdomen pelvis revealed ascites and a cirrhotic liver with evidence of portal hypertension. Disclosed significant alcohol use at that time of 6 glasses of wine daily. Was started on Aldactone and Bumex with significant diuresis and discharged with plans for follow-up with gastroenterology for underlying liver disease (appt scheduled in mid-July). Presents with generalized weakness, increased fatigue and some confusion over the past week or 2. Lives with sister, who provides most of the history today. Has been taking medications. Does not eat very much. Still drinking 4 glasses of wine nightly, per sister. No fever, chills, lightheadedness, headache, chest pain, shortness of breath. No nausea, vomiting or abdominal pain. Having some constipation over the past few days. Is not eating much but does not have very much of an appetite at baseline, says sister. Has lost an additional 15 pounds since admission for diuresis. Vaginal bleeding has resumed to a lesser degree over the past week. Called obgyn who instructed them to call back if bleeding significantly increased to the point of soaking through a pad within 2 hours. Allergies Allergy/AdvReac Type Severity Reaction Status Date / Time hydrochlorothiazide AdvReac Intermediate Unknown Verified 04/07/24 13:23 Home Medications Medication Instructions Recorded Confirmed Type simvastatin 40 mg tablet 40 mg PO QPM #0 tabs 03/11/17 04/24/24 History gabapentin 300 mg capsule 300 mg PO HS #30 caps 03/15/24 04/24/24 Rx calcium 500 mg (as 1 tab PO BID #60 tabs 03/23/24 04/24/24 Rx carbonate)-vitamin D3 10 mcg (400 unit) tablet (Calcium 500 + D) magnesium chloride 64 mg 128 mg (2 x 64 mg) PO BID #60 tabs 03/23/24 04/24/24 Rx (magnesium chloride) tablet,delayed release (Mag 64) L.acidop,casei,lactis,rham-B.lact,chacha 1 cap PO DAILY #30 caps 04/02/24 04/24/24 Rx 625 mg (10 billion cell) capsule (Advanced Probiotic) bumetanide 2 mg tablet 2 mg PO BID #60 tabs 04/02/24 04/24/24 Rx levothyroxine 25 mcg tablet 25 mcg PO DAILY #30 tabs 04/02/24 04/24/24 Rx (Synthroid) spironolactone 100 mg tablet 100 mg PO BID 30 days #60 tabs 04/02/24 04/24/24 Rx Past Med/Surg History Problem List Acute hyponatremia (Acute) ELVA (acute kidney injury) (Acute) Weakness (Acute) Subclinical hypothyroidism Bacteriuria, asymptomatic Suspected urinary tract infection Chronic anemia Portal hypertension Alcoholic cirrhosis of liver Volume overload Acute UTI (urinary tract infection) (Acute) Anasarca (Acute) Bilateral lower leg cellulitis Elevated LFTs Hypocalcemia Ambulatory dysfunction Acute on chronic heart failure with preserved ejection fraction (HFpEF) Severe anemia Chronic hyponatremia Post-menopausal bleeding Spondylolisthesis, lumbar region Lumbosacral spondylosis Degenerative joint disease (DJD) of lumbar spine Scoliosis of lumbar region due to degenerative disease of spine in adult COVID-19 (Acute) 02/28/24 Sacroiliitis Pneumonia (Acute) 04/21/16 Cancer of central portion of right female breast (Acute) "Palpable mass found on physical examination Status post mammography and ultrasound Status post core needle biopsy 09/17/2016 Invasive carcinoma Estrogen receptor negative, progesterone receptor negative and HER-2/agustin negative. 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 ypT1c ypN0 M0 G3 " Hypertension (Chronic) Medical History Spondylolisthesis, lumbar region Scoliosis of lumbar region due to degenerative disease of spine in adult Sacroiliitis Postural dizziness hx, found to have a recent UTI 02/28/24; no current symptoms History of pneumonia 2015, no recent issues Lumbosacral spondylosis Degenerative joint disease (DJD) of lumbar spine Hx of recurrent urinary tract infection most recent 02/28/24, no further symptoms Lumbosacral spondylosis History of COVID-19 02/28/24, asymptomatic>resolved Hx of breast cancer dx 2016, right breast mastectomy>no limb restriction Hypertension Hyperlipidemia Surgical History Post-operative state History of bilateral tubal ligation Hx of colonoscopy Hx of eye surgery age 4 Hx of tonsillectomy Hx of right mastectomy no limb restriction Family History Family/Other Breast cancer Herself Mother Myocardial infarction Denies family history of Ovarian cancer Colorectal cancer Social History Smoking Status: Former smoker Tobacco Type: Cigarettes Second Hand Exposure: No; Do You Dip or Chew Tobacco: No; Hx Alcohol Use: Yes Alcohol type: wine Hx Substance Use: No Preferred Language: Ecuadorean Communication Ability: Effective Visual Impairment: No Limitations Lab Asst Required: No Beliefs That Will Affect Care: None Current Living Situation: Family Current Living Situation Comment: lives with sister Other Information That Helps Us Care for You: No Feels Safe at Home: Yes Safety Concerns: Feels Safe At This Time Assistive Devices: None Review of Systems Review of Systems: At least ten systems reviewed and negative except as noted in the HPI. Physical Exam Physical Exam: General Appearance: WD/WN, vitals as above, NAD, sitting up in bed, pleasant, lethargic Head: normocephalic, atraumatic Eyes: normal inspection, PERRL, conjunctivae normal, anicteric sclerae ENT: external ear and nose normal, oropharynx normal Neck: normal visual inspection, trachea midline, no thyromegaly Respiratory: normal respiratory effort, lungs clear to auscultation, no wheeze, rales, rhonchi. No accessory muscle use Cardiovascular: regular rate, rhythm, no murmur, normal peripheral pulses, no BLE edema. Vessels: no JVD Chest: normal inspection of chest Abdomen/GI: normal bowel sounds, soft, nontender, no hepatosplenomegaly Extremities/Musculoskeletal: no cyanosis or clubbing, extremities motor strength 5/5 Neurologic: PERRL, EOMI, accommodation nl, no face palsy, no dysarthria, CN's II-XI intact bilaterally and moves all extremities Psychiatric: A+Ox3, euthymic affect Skin: no rashes, normal color, warm/dry Results & Data Results & Data Vital Signs (Past 12 Hours) Vital Signs Temp Pulse Pulse Resp BP BP Pulse Ox 04/24/24 15:54 88 04/24/24 15:47 87 21 98 04/24/24 15:35 141/82 H 04/24/24 12:31 36.2 C L 101 H 21 105/70 99 O2 Del Method 04/24/24 15:54 04/24/24 15:47 Room Air 04/24/24 15:35 04/24/24 12:31 Room Air Laboratory Results Short CBC 04/24/24 Range/Units 12:58 WBC 8.11 (4.8-10.8) K/ul Hgb 12.4 (12.0-16.0) g/dl Hct 37.6 (37.0-47.0) % Plt Count (130-400) K/uL BMP 04/24/24 12:58 Sodium 125 L Potassium 4.7 Chloride 90 L Carbon Dioxide 25 BUN 31 H Creatinine 1.60 H Glucose 106 H Calcium 10.4 H Liver Function 04/24/24 Range/Units 12:58 Total Bilirubin 1.5 H (0.2-1.0) mg/dl AST 29 (13-39) U/L ALT 15 (7-52) U/L Alkaline Phosphatase 76 (34-104) U/L Albumin 3.5 (3.4-5.0) gm/dl Diagnostic Findings Chest X-Ray 04/24/24 12:34 XR chest 1V not portable HISTORY: 74 years-old Female weakness COMPARISON: 03/28/2024 TECHNIQUE: PA view of the chest FINDINGS: Numerous chronic right rib fracture deformities. Heart size is within normal limits. The lungs appear clear. No pneumothorax, pleural effusion or pulmonary edema. Chronic interstitial coarsening at the lung bases. Partially imaged scoliotic curvature of the lumbar spine. IMPRESSION: No acute process of the chest. ACT 112: Negative or not required by law. The above report was generated using voice recognition software. It may contain grammatical, syntax or spelling errors. Electronically signed by: Addison Finney M.D. 04/24/2024 1:45 PM Supervising Physician Co-Signing Physician Notes 74-year-old lady with PMH of alcoholic cirrhosis, HTN, HLD, hypothyroidism presented to the ED with complaint of weakness for about 1 week. Patient was recently in the hospital for multiple reasons including vaginal bleeding/requiring 5 unit PRBC transfusion and then another admission for 20 pound weight gain likely secondary to ascites ISO cirrhotic liver when Aldactone and Bumex was started. This time patient reports feeling really weak, for about 1 week, denies headache/fever/sore throat/cough/chest pain/belly pain/pain or burning while passing urine. Patient reports appetite closer to her baseline, patient denies any fall. Patient overall reports he is worsening over the last 1 week. She was noted to be transiently confused by her sister who lives with her. Patient lost 20 pounds in the last 2 to 3 weeks per her sister. Labs and imagings reviewed. CBC fairly WNL, sodium of 125 [baseline around 1 32-1 35], creatinine of 1.6 [baseline around 0.5], ammonia of 87, TSH WNL CXR with no acute finding. Progressive weakness Acute kidney injury Hyponatremia Status post half liter NSS at the ED, continue with NSS at 65 mL an hour for 1 more bag. Avoid nephrotoxic's including Bumex and Aldactone, labs in AM. Nephrology consult encourage p.o. intake, Low Na diet. PT/OT. Hyperammonemia and Cirrhosis: ISO cirrhotic liver, lactulose 20 Mg p.o. 3 times daily with a goal of 3-4 bowel movements a day. GI consult. Repeat NH3 in AM. On exam: GENERAL: Lethargic/weak appearing and oriented x3. NAD, on RA. HEENT: No pallor, no icterus. Pupils equal, round and reactive to light. Oral mucosa dry. NECK: No JVD, no neck masses. HEART: S1 and S2 heard. Regular rate and rhythm. No murmur, no gallop. RESPIRATORY SYSTEM: Normal AP diameter. No accessory muscle use. No wheezing, no crackles. ABDOMEN: Soft, bowel sounds present, nontender, no distention. CENTRAL NERVOUS SYSTEM: No facial droop. Speech is clear. Obeys simple commands. Moves extremities. EXTREMITIES: No edema, no erythema seen. I have seen and examined the patient and have discussed the case with the provider above. I agree with the assessment and plan as stated. Time spent: 35 min.
[2024-04-24] MEDS ORDERED: ACETAMINOPHEN 325 MG TAB PO PRN (18:29)
[2024-04-24] MEDS ORDERED: POLYETHYLENE (MIRALAX) 17 GM PACK PO PRN (18:29)
[2024-04-24 18:49] LABS: Appearance Urine Clear (Clear); Bacteria Urine Automated None Seen (None Seen); Bilirubin Urine Negative (Negative); Blood Urine 3+ (Negative); Color Urine Yellow; Glucose Urine UA Negative (Negative); Hyaline Casts Urine Present /lpf (None Presnt); Ketones Urine Negative (Negative); Leukocyte Esterase Urine Negative (Negative); Nitrite Urine Negative (Negative); Protein Urine Negative (Negative); Specific Gravity Urine 1.009 (1.000-1.030); Urobilinogen Urine Negative (Negative); WBC Urine Automated 0-5 /hpf (0-5)
[2024-04-24] MEDS: SIMVASTATIN 40 MG TAB PO SCH (19:31)
[2024-04-24] MEDS: LACTULOSE SYRUP 20 GM/30 ML UDC PO SCH (19:31)
[2024-04-24] MEDS: MAGNESIUM CHLORIDE W/CALCIUM 64MG DELAYED REL TAB PO SCH (19:31)
[2024-04-24] MEDS: CALCIUM 600MG + VIT D 400 IU TAB PO SCH (19:32)
[2024-04-24] MEDS: GABAPENTIN 300 MG CAP PO SCH (19:32)
[2024-04-24] MEDS: SODIUM CHLORIDE 0.9% 500 ML IV SCH ×2 (19:37→19:38)
[2024-04-24 19:52] LABS: BUN Creatinine Ratio 19.5 (10-20); Calcium 9.5 mg/dl (8.6-10.3); Creatinine Clr Calc Pharmacy 26.7 ml/min; Potassium 4.3 mmol/L (3.5-5.1)
--- OUTSIDE RECORDS SUMMARY | 2024-04-24 20:40 | External Medical Summary | Summary of Care ---
Author Name Unknown Organization [facility] Address [address] [place] [address] Phone [phone] Care Team Providers Care Substation Operator Transforming Name Role Phone DannyKenny rueda Alma NICE Primary Care Provider [phone] Reason for Visit * Reason Onset Date Comments After Hours Call 04/23/2024 Encounter Details Date Type Department Care Team (Late st Contact Info) Description 04/23/2024 Telephone [facility] [address] [place] [address] Rad Mcpherson MD [address] [place] [address] After Hours Call Allergies Active Allergy Reactions Criticality Noted Date Comments Lisinopril Other (Please comment) 2024 Told it was affecting her electrolytes. documented as of this encounter (statuses as of 04/23/2024) Medications Simvastatin 40 MG Oral Tablet (Zocor)Indicati ons:Dyslipidemi a TAKE 1 TABLET BY MOUTH AT BEDTIME 90 Tablet 3 4 Active Gabapentin 100 MG Oral Capsule (Neurontin) 3 Capsules. Patient on 300 mg as needed at bedtime 4 Active Calcium Carb-Cholecalci ferol 600-20 MG-MCG Oral Tablet (Caltrate 600+D3) Take 1 Tablet by mouth in the morning and 1 Tablet before bedtime. Active Magnesium Chloride 64 MG Oral Tablet Delayed Release (Mag64) Take 1 Tablet by mouth in the morning and 1 Tablet before bedtime. Active Probiotic Daily Oral Capsule Take 1 Capsule by mouth in the morning and 1 Capsule before bedtime. Active Bumetanide 2 MG Oral TabletIndicatio ns:Anasarca Take 1 Tablet by mouth in the morning and 1 Tablet before bedtime. 60 Tablet 5 4 Active Spironolactone 100 MG Oral Tablet (Aldactone)Fina cations:Anasarc a Take 1 Tablet by mouth in the morning and 1 Tablet before bedtime. 60 Tablet 5 4 Active LORazepam 0.5 MG Oral Tablet (Ativan) Take 1-2 pills as needed before imaging 2 Tablet 4 Active Levothyroxine Sodium 25 MCG Oral Tablet (Levoxyl) Take 1 Tablet by mouth daily first thing in the morning. (at least 30 min prior to breakfast or other meds) 30 Tablet 5 4 Active documented as of this encounter (statuses as of 04/23/2024) Active Problems Problem Noted Date Diagnosed Date Alcoholic cirrhosis 04/07/2024 Acquired hypothyroidism 04/07/2024 Alcoholic cirrhosis of liver without ascites Lumbar degenerative disc disease 03/10/2024 Elevated liver enzymes 03/10/2024 Hx of nonmelanoma skin cancer 02/04/2023 Overview (02/04/2023): BCC R forehead 02/2022 Age-related osteoporosis wit hout current pathological fracture 08/11/2022 Hyperlipidemia, unspecified 12/20/2019 History of breast cancer 04/11/2018 Hx of atypical nevus 09/16/2016 HTN, goal below 140/90 documented as of this encounter (statuses as of 04/23/2024) Resolved Problems Problem Noted Date Diagnosed Date [...] be determined 07/25/2014 Other allergic rhinitis 01/2020 Overview (04/06/2017): ICD-10 update of inactive term documented as of this encounter (statuses as of 04/23/2024) Immunizations Name Administration Dates Next Due COVID-19 [...] drink = 0.6 oz pur e alcohol) 6 glasses of wine/day PHQ-2 Answer Date Recorded PHQ Adult Total Score 1 2024 Hunger Vital Sign Answer Date Recorded Within the past 12 months, y ou worried that your food would run out before you got the money to buy more. Never true 04/03/20 24 Within the past 12 months, t he food you bought just didn't last and you didn't have money to get more. Never true 2024 Childcare Answer Date Recorded Do you feel overwhelmed with taking care of a child, family member or friend? No 2024 Does your family need help f inding childcare? (Household - for ages 0-17 years) Not on file 2024 Clothing Answer Date Recorded Have you been unable to get clothing when it was really needed? No 2024 Is your family able to get c lothes or diapers when needed? (Household - for ages 0-17 years) Not on file 2024 Personal Safety Answer Date Recorded Do you feel unsafe or have concerns for your saf ety? No 2024 Do you have concerns for you r family's safety? (Household - for ages 0-17 years) Not on file 2024 Utilities Answer Date Recorded Do you have trouble paying y our heating, water, or electric bill? No 2024 Is your family able to pay t he heat, water, or electric bill? (Household - for ages 0-17 years) Not on file 2024 Does your family have access to good internet? (Household - for ages 0-17 years) Not on file 2024 Employment Status Answer Date Recorded Are you unemployed or without regular income? No 2024 Does the household have a [facility] source of income? (Household - for ages 0-17 years) Not on file 2024 Social Connections Answer Date Recorded How often do you feel lonely or isolated from th ose around you? Never 2024 Financial Resource Strain Answer Date R ecorded Do you have any trouble payi ng for your medications, or do you think you might in the future? No 2024 Does your family have troubl e paying for medicine? (Household - for ages 0-17 years) Not on file 2024 Transportation Needs Answer Date Record ed Do you have trouble getting a ride to medical visits or work? (Adult - for ages 18 years and over) Not on file 2024 Does your family have a hard time getting a ride to doctors visits? (Household - for ages 0-17 years) Not on file 2024 Has lack of transportation k ept you from medical appointments, meetings, work, or from getting things needed for daily living? Check all that apply. No 2024 Do you (or your family) have trouble finding or paying for a ride (transportation)? (Household - for ages 0-17 years) Not on file 2024 Housing Stability Answer Date Recorded Do you currently live in a s helter or have no steady place to sleep at night? No 2024 Do you think you are at risk of becoming homeless? (Adult - for ages 18 years and over) Not on file 2024 Does your family worry about paying for your home or becoming homeless? (Household - for ages 0-17 years) Not on file 1 Are you homeless or worried that you might be in the future? No 2024 Are you (or your family) srinivas eless or worried that you might be in the future? (Household - for ages 0-17 years) Not on file Food Insecurity Answer Date Recorded Do you need food for this week? No 2024 Are you able to get enough f ood for your family? (Household - for ages 0-17 years) Not on file 2024 Does your family need food t his week? (Household - for ages 0-17 years) Not on file 2024 Do you always have enough fo od for your family? (Household - for ages 0-17 years) Not on file 2024 Comments No Sex and Gender Information Value Date Recorded Sex Assigned at Female 02/13/2022 10:19 AM EDT Legal Sex Female 6:44 AM EST Gender Identity Female 02/13/2022 10:19 AM EDT Sexual Orientation Straight 02/13/2022 10 :19 AM EDT Occupation Industry Job Start Date Job End Date Not on file Not on file Not on file Not on file documented as of this encounter Miscellaneous Notes * Telephone Encounter - Rad Mcpherson MD - 04/23/2024 7:45 PM EST After hours call from pt's sister. She states that patient has been declining over the last days. She can hardly walk and is getting more confused. She has lost 20 pounds. Sister is worried that she is getting progressively worse. Given current symptoms and concerns, suggest ED eval today. She is agreeable. documented in this encounter Plan of Treatment Upcoming Encounters Date Type Department Care Team (Late st Contact Info) Description 05/16/2024 4:00 PM EST Office Visit Dermatology [facility] [address] [place] [address] Ruben Hairston MD [address] [place] [address] 05/22/2024 3:40 PM EST Office Visit [facility] [address] [place] [address] Kenny Pacheco, DO [address] [facility] [place] [address] 08/10/2024 10:40 AM EST Office Visit Hepatology, [facility] [address] [facility] [place] [address] Anita Mc MD [address] [place] [address] 09/29/2024 10:20 AM EDT Office Visit [facility] [address] [place] [address] Kenny Pacheco, DO [address] [facility] [address] [place] [address] Scheduled Procedures Name Priority Associated Diagnoses Date/Ti me COLONOSCOPY FLEXIBLE PROXIMAL DIAGNOSTIC Recall History of colon polyps Health Maintenance Due Date Last Done Comments Hepatitis B Vaccine (1 of 3 - Risk 3-dose series) 2008 Adult Wellness Visit 2014 COVID-19 Vaccine ( season) 2024 03/08/2023, 03/17/2022, 09/21/2021, Additional history exists *BISPHONATE OR OTHER ACCEPTABLE MEDICATION NEEDED FOR OSTEOPOROSIS (REFER TO SMARTSET #1146) 03/13/2024 DXA Scan 05/14/2024 05/14/2022, 06/2021, 09/30/2015, Additional history exists Albumin/Creatinine Ratio 02/17/2025 02/17/2022 Depression Screening 2025 2024 GFR 04/07/2025 04/07/2024, 11/2022, 05/25/2022, Additional history exists TSH 04/07/2025 04/07/2024, 05/14, 12/27/2020 Colonoscopy 04/17/2025 04/17/2020, 09/2019, 11/27/2010 DTap/Tdap Vaccines (4 - Td or Tdap) 05/01/2031 05/01/2021, 05/28/2010, 02/08/2010, Additional history exists Pneumococcal Vaccine: 65+ Years Completed 08/01/2015, 07/25/2014 Hepatitis C Screening Completed 04/29/2017, 013 RETIRED - COLONOSCOPY-EVERY 5 YRS AGES 18-100 Discontinued 04/17/2020, 04/17/2020, 11/27/2010 Zoster Vaccines Completed 04/21/2020, 12/12, 06/24/2012 VITAMIN D LEVEL ONCE IN A LIFETIME-USE SMARTSET# 50487 Completed 04/19/2023, 09/09/2022, 05/25/2022 Influenza Vaccine (FLU shot) Completed 02/17/2024, 02/12/2023, 02/13/2022, Additional history exists HPV (Gardasil) Vaccine Aged Out No lo nger eligible based on patient's age to complete this topic MENINGOCOCCAL (MENACTRA/MENVEO) Aged Out No longer eligible based on patient's age to complete this topic documented as of this encounter Medical Devices Implanted Type Area Manual Plate Filler Device Identifier Shelf Expiration Date Model / Serial / Lot Port Power Mri W/8fr Cath - [id number] Implanted:Qty: 1 on 10/07/2016 by Judith Barrios MD at OR [facility] Left: Subclavian CR BARD : PERIPHERAL VASCULAR 01/11/2018 [id number] / / [id number] Natrelle 500cc [employer]forcing [employer] Implanted:Qty: 1 on 05/03/2017 by Jacoby Goyal MD at OR [facility] Right: Breast ALLERGAN 04/12/2019 133MV-14 / [id number] / [id number] Smooth Round Moderate Profile Breast Implant Implanted:Qty: 1 on 10/21/2017 at OR [facility] Right: Breast ALLERGAN 07/29/2022 SRM-445 / [id number] / [id number] documented as of this encounter Advance Directives * Full Code (Latest Code Status on File) Date Activated Date Inactivated Comments 05/03/2017 9:55 AM 05/04/2017 2:39 PM This order reflects the patients wishes and were consensually agreed upon. Healthcare Agents on File Name Relationship Healthcare Agent Relationshi p Communication Jenna Segura Sibling First Alternate Health Care Agent (per Health Care Power of Labor Relations Teacher document) Care Teams Substation Operator Transforming Relationship Specialty Start Date End Date Kenny Pacheco DO [address] [place] [address] PCP - General Family Medicine 04/08/21 documented as of this encounter
--- OUTSIDE RECORDS SUMMARY | 2024-04-24 20:41 | External Medical Summary | Summary of Care ---
Author Name Unknown Organization [facility] Address [address] [place] [address] Phone [phone] Care Team Providers Care Tassel Clipper Name Role Phone Kenny Pacheco Primary Care Provider [phone] Encounter Details Date Type Department Care Team (Late st Contact Info) Description 04/17/2024 1:45 PM EST Scheduled Telephone Care Coordination and Integration [address] [place] [address] Hien Guerin, Community Health Sueding Machine Tender [address] [place] [address] Allergies Active Allergy Reactions Criticality Noted Date Comments Lisinopril Other (Please comment) 2024 Told it was affecting her electrolytes. documented as of this encounter (statuses as of 04/17/2024) Medications Medication Sig Dispensed Refills Start Date End Date Status Simvastatin 40 MG Oral Tablet (Zocor)Indications:D yslipidemia TAKE 1 TABLET BY MOUTH AT BEDTIME 90 Tablet 3 07/19/2023 Active Gabapentin 100 MG Oral Capsule (Neurontin) 3 Capsules. Patient on 300 mg as needed at bedtime 02/22/2024 Active Calcium Carb-Cholecalciferol 600-20 MG-MCG Oral Tablet (Caltrate 600+D3) Take [...] before bedtime. Active Bumetanide 2 MG Oral TabletIndications:An asarca Take 1 Tablet by mouth in the morning and 1 Tablet before bedtime. 60 Tablet 5 04/07/2024 Active Spironolactone 100 MG Oral Tablet (Aldactone)Indicatio ns:Anasarca Take 1 Tablet by mouth in the morning and 1 Tablet before bedtime. 60 Tablet 5 04/07/2024 Active LORazepam 0.5 MG Oral Tablet (Ativan) Take 1-2 pills as needed before imaging 2 Tablet 04/07/2024 Active Levothyroxine Sodium 25 MCG Oral Tablet (Levoxyl) Take 1 Tablet by mouth daily first thing in the morning. (at least 30 min prior to breakfast or other meds) 30 Tablet 5 04/07/2024 Active documented as of this encounter (statuses as of 04/17/2024) Active Problems Problem Noted Date Diagnosed Date [...] as of this encounter (statuses as of 04/17/2024) Resolved Problems Problem Noted Date Diagnosed Date [...] as of this encounter (statuses as of 04/17/2024) Immunizations Name Administration Dates Next Due COVID-19 [...] No 2024 Does the household have a re gular [...] ages 0-17 years) Not on file 2024 Sex and Gender Information Value Date Recorded Sex Assigned at Female 02/13/2022 10:19 AM EDT Gender Identity Female 02/13/2022 10:19 AM EDT Sexual Orientation Straight 02/13/2022 10 :19 AM EDT Job Start Date Occupation Industry Not on file Not on file Not on file documented as of this encounter Progress Notes * Hien Guerin, Community Health Sueding Machine Tender - 04/17/2024 1:31 PM EST Telemedicine visit: No Community Health Sueding Machine Tender (TARSHA) documentation: CHW placed #2 f/u call to patient per CM's request Sister Jenna gave report Jenna reported that patient is doing well and coming along good. Pt and OT are continuing and are working on her energy level. OT will come probably one time next week and than close her out. Her appetite is about the same no change. No pain and no falls. No changes to medications. They have all her appointments scheduled etc. Her breathing has been good and no weight gain, has lost a few pounds.CHW reviewed red flags. No swelling at all. They continue to watch her salt intake and fluid intake. They did receive the scale and are using it. They received two and the one was picked up and sent back. Sister had no concerns or questions at this time. CHW encouraged sister to reach out to CM with any concerns or questions and confirmed CM's contact number. Hien Guerin- Community Health Worker 1 Support Services/[facility] Records Health Plan [email or web address] documented in this encounter Plan of Treatment Upcoming Encounters Date Type Department Care Team (Late st Contact Info) Description 05/22/2024 3:40 PM EST Office Visit [facility] [address] [place] [address] Kenny Pacheco, DO [facility] [place] [address] 08/10/2024 10:40 AM EST Office Visit Hepatology, [facility] [address] [facility] [place] [address] Anita Mc MD [address] [place] [id number] 09/29/2024 10:20 AM EDT Office Visit [facility] [address] [place] [address] Kenny Pacheco, DO [address] [facility] [place] [place] [address] Scheduled Procedures Name Priority Associated Diagnoses Date/Ti [...] SMARTSET #1146) 03/13/2024 DXA Scan 05/14/2024 05/14/2022, 1206/2021, 09/30/2015, Additional history exists Albumin/Creatinine Ratio 02/17/2025 02/17/2022 Depression Screening 2025 2024 GFR 04/07/2025 04/07/2024, 1111/2022, 05/25/2022, Additional history exists TSH 04/07/2025 04/07/2024, [...] D LEVEL ONCE IN A LIFETIME-USE SMARTSET# 57436 Completed 04/19/2023, 09/09/2022, 05/25/2022 Influenza Vaccine (FLU shot) Completed 02/17/2024, 02/12/2023, 02/13/2022, Additional history exists HPV (Gardasil) Vaccine Aged Out No lo nger eligible based on patient's age to complete this topic MENINGOCOCCAL (MENACTRA/MENVEO) Aged Out No longer eligible based on patient's age to complete this topic documented as of this encounter Medical Devices Implanted Type Area Service Greeter Device Identifier Shelf Expiration Date Model / Serial / Lot Port Power Mri W/8fr Cath - [id number] Implanted:Qty: 1 on 10/07/2016 by Judith Barrois MD at OR [facility] Left: Subclavian CR BARD : PERIPHERAL VASCULAR 01/11/2018 [id number] / / [id number] Natrelle 500cc Wall Taper Helper Implanted:Qty: 1 on 05/03/2017 by Jacoby Goyal MD at OR [facility] Right: Breast ALLERGAN 04/12/2019 133MV-14 / [id number] / Srm [id number] Smooth Round Moderate Profile Breast Implant Implanted:Qty: 1 on 10/21/2017 at [facility] Right: Breast ALLERGAN 07/29/2022 SRM-445 / [id number] / [id number] documented as of this encounter Advance Directives * Full Code (Latest Code Status on File) Date Activated Date Inactivated Comments 05/03/2017 9:55 AM 05/04/2017 2:39 PM This order reflects the patients wishes and were consensually agreed upon. Healthcare Agents on File Name Relationship Healthcare Agent Relationshi p Communication Jenna White Sibling First Alternate Health Care Agent (per Health Care Power of Conche Operator document) Care Teams Tassel Clipper Relationship Specialty Start Date End Date Kenny Pacheco DO [address] [place] [address] PCP - General Family Medicine 04/08/21 documented as of this encounter
[2024-04-24] MEDS: ONDANSETRON INJ 2 MG/ML 2 ML VIAL IV PRN (23:43)
[2024-04-25] MEDS: LEVOTHYROXINE SODIUM 25 MCG TABLET PO SCH (05:47)
[2024-04-25 06:33] LABS: Hemoglobin 10.4 g/dl (12.0-16.0); Mean Corpuscular Hemoglobin 29.8 pg (25.0-34.0); Mean Corpuscular Hgb Conc 33.5 g/dL (32.0-36.0); Mean Corpuscular Volume 88.8 fL (80.0-100.0); Mean Platelet Volume 9.5 fL (9.4-12.4); Platelet Count 155 K/uL (130-400); RDW Coefficient of Variation 13.4 % (11.5-14.5); RDW Standard Deviation 43.6 fL (36.4-46.3); Red Blood Count 3.49 M/uL (4.20-5.40); White Blood Count 7.41 K/ul (4.8-10.8)
[2024-04-25 06:51] LABS: Albumin Globulin Ratio 1.1 (0.9-2); Albumin Level 2.9 gm/dl (3.4-5.0); BUN Creatinine Ratio 20.1 (10-20); Bilirubin,Total 1.2 mg/dl (0.2-1.0); Calcium 9.2 mg/dl (8.6-10.3); Creatinine Clr Calc Pharmacy 26.4 ml/min; Globulin 2.7 gm/dl (2.5-4.0); Magnesium 1.9 mg/dl (1.7-2.4); Potassium 4.3 mmol/L (3.5-5.1); Total Protein 5.6 gm/dl (6.0-8.3)
--- OUTSIDE RECORDS SUMMARY | 2024-04-25 06:51 | External Medical Summary | Summary of Care ---
Author Name Unknown Organization [facility] Address [address] [place] [address] Phone [phone] Care Team Providers Care Chemistry Quality Control Analyst Name Role Phone DannyKenny rueda Primary Care Provider [phone] Encounter Details Date Type Department Care Team (Late st Contact Info) Description 04/24/2024 11:30 AM EST Scheduled Telephone Care Coordination and Integration [address] [place] [address] Hien Guerin, Community Health Stonework Tracer [address] [place] [address] Allergies Active Allergy Reactions Criticality Noted Date Comments Lisinopril Other (Please comment) 2024 Told it was affecting her electrolytes. documented as of this encounter (statuses as of 04/24/2024) Medications Simvastatin 40 MG Oral Tablet (Zocor)Indicati [...] as of this encounter (statuses as of 04/24/2024) Active Problems Problem Noted Date Diagnosed Date [...] as of this encounter (statuses as of 04/24/2024) Resolved Problems Problem Noted Date Diagnosed Date [...] as of this encounter (statuses as of 04/24/2024) Immunizations Name Administration Dates Next Due COVID-19 mRNA, LNP-s, No Pre serve, 2-Dose Series ([employer]) 09/21/2021,03/26/2021,09/02/2020,08/14 Pneumococcal Conjugate Vacc, 13 Valent (Prevnar) [...] 2024 Does the household have a [facility] source of income? (Household - for [...] Progress Notes * Hien Guerin, Community Health Stonework Tracer - 04/24/2024 11:43 AM EST Telemedicine visit: No Community Health Stonework Tracer (TARSHA) documentation: This CHW placed #3 f/u PC to patient and spoke with sister Jenna [place] reported that things were not going real well currently with patient and that they were getting ready to go to ED. Patient is having increased confusion, not eating real well yet, mobility issues and has lost about 20 pounds. Jenna reported that she talked with the oncall nurse yesterday and they suggested she take her to ED. Jenna also spoke with RNCM Macarena earlier today and it was suggested to take patient to ED. Jenna is trying to convince patient to go and is being hernandez with her at this point. Patient is willing to go however does not want to be admitted. Jenna is preparing to take her in the next 30 minutes to ED. Hien Guerin- Community Health Worker 1 Support Services/[facility] [email or web address] documented in this encounter Plan of Treatment Upcoming Encounters Date Type Department Care Team (Late st Contact Info) Description 05/16/2024 4:00 PM EST Office Visit Dermatology [facility] [address] [place] [address] Ruben Hairston MD [address] [facility] [place] [address] 05/22/2024 3:40 PM EST Office Visit [facility] [address] [place] [address] Kenny Pacheco, DO [address] [facility] [place] [address] 08/10/2024 10:40 AM EST Office Visit Hepatology, [facility] [address] [facility] [place] [address] Anita Mc MD [address] [place] [address] 09/29/2024 10:20 AM EDT Office Visit [facility] [address] [place] [address] Kenny Pacheco, DO [address] [facility] [place] [address] Scheduled Procedures Name Priority Associated Diagnoses Date/Ti [...] D LEVEL ONCE IN A LIFETIME-USE SMARTSET# 05250 Completed 04/19/2023, 09/09/2022, 05/25/2022 Influenza Vaccine (FLU shot) Completed 02/17/2024, 02/12/2023, 02/13/2022, Additional history exists HPV (Gardasil) Vaccine Aged Out No lo nger eligible based on patient's age to complete this topic MENINGOCOCCAL (MENACTRA/MENVEO) Aged Out No longer eligible based on patient's age to complete this topic documented as of this encounter Medical Devices Implanted Type Area Photo Lab Specialist Device Identifier Shelf Expiration Date Model / Serial / Lot Port Power Mri W/8fr Cath - [id number] Implanted:Qty: 1 on 10/07/2016 by Judith Barrios MD at OR [facility] Left: Subclavian CR BARD : PERIPHERAL VASCULAR 01/11/2018 [id number] / / [id number] Natrelle 500cc Finish Production Manager Implanted:Qty: 1 on 05/03/2017 by Jacoby Goyal [place] [facility] Right: Breast ALLERGAN 04/12/2019 133MV-14 / [id number] / Srm [id number] Smooth Round Moderate Profile Breast Implant Implanted:Qty: 1 on 10/21/2017 [place] [facility] [place]: Breast ALLERGAN 07/29/2022 SRM-445 / [id number] / [id number] documented as of this encounter Advance Directives * Full Code (Latest Code Status on File) Date Activated Date Inactivated Comments 05/03/2017 9:55 AM 05/04/2017 2:39 PM This order reflects the patients wishes and were consensually agreed upon. Healthcare Agents on File Name Relationship Healthcare Agent Relationshi p Communication Jenna Segura Sibling First Alternate Health Care Agent (per Health Care Power of Newspaper Subscription Solicitor document) Care Teams Chemistry Quality Control Analyst Relationship Specialty Start Date End Date Kenny Pacheco DO [address] [place] [address] PCP - General Family Medicine 04/08/21 documented as of this encounter
[2024-04-25] MEDS: ADVANCED PROBIOTIC 625 MG CAPSULE PO SCH (08:33)
--- NOTE | 2024-04-25 09:54 | Gastrointestinal Consultation ---
Date of Consultation April 25, 2024 Assessment & Plan (1) Alcoholic cirrhosis of liver: -Correct hyponatremia as it does appear her confusion is multifactorial -Xifaxan 550 mg BID given concerns for hepatic encephalopathy -Continue with Lactulose initiated by primary team; titrate to goal of 3-4 bowel movements daily -Sodium restriction to <2000 mg daily -Avoid NSAIDs; ok to use Tylenol up to 2000 mg daily in q 6 hr divided doses -MELD currently only 20; continue to obtain labs to calculate MELD scores while hospitalized -Continue diuretic adjustment per nephrology; Currently insufficient fluid noted on abdominal imaging to warrant a paracentesis -Will need outpatient follow-up with [facility] for further cirrhosis/portal hypertension work-up as well as ongoing HCC surveillance -Hepatitis A, B, C testing negative during previous admission; Can consider immunization for Hep A/B as outpatient with [facility] or PCP -Alcohol abstinence advised Supervising Physician Co-Signing Physician Notes I saw and examined this patient with our nurse practitioner and agree with her assessment and plan. Suspect compensation with encephalopathy related to diuretic therapy causing dehydration and hyponatremia. In addition she still is drinking alcohol which could be contributing. No signs of infection or GI bleeding at this time. Continue to correct sodium. Would recommend a low animal protein diet for her. A dietitian would be helpful to explain to her about the difference between animal protein and vegetable protein in somebody with hepatic encephalopathy. Will follow. History of Present Illness Reason for Consultation: Cirrhosis Attending Physician: Aubrey Geiger MD History of Present Illness Patient is a 74 yo female with many chronic medical issues who was recently diagnosed with alcoholic cirrhosis during a recent admission. She is set up to see Suresh ALMAZAN as an outpatient. She returned to the hospital due to confusion over the past week. She has had ongoing issues with anemia & vaginal bleeding leading to a D&C. She was subsequently admitted for 20 lb weight gain and during that admission is when she was found to have cirrhosis. She had reported to staff that she consumes 6 glasses of wine daily. She was started on diuretics (Aldactone & Bumex). She had increased weakness and confusion recently and was brought to the ED. She has had poor appetite. She was noted to have hyponatremia upon presentation to the ED. Vaginal bleeding is ongoing. H/H 10.4/31.0. MELD 20. Ammonia mildly increased upon presentation at 87. Reportedly was struggling with constipation. Repeat ammonia now 30. Allergies Allergy/AdvReac Type Severity Reaction Status Date / Time hydrochlorothiazide AdvReac Intermediate Unknown Verified 04/07/24 13:23 Home Medications Medication Instructions Recorded Confirmed Type simvastatin 40 mg tablet 40 mg PO QPM #0 tabs 03/11/17 04/24/24 History gabapentin 300 mg capsule 300 mg PO HS #30 caps 03/15/24 04/24/24 Rx calcium 500 mg (as 1 tab PO BID #60 tabs 03/23/24 04/24/24 Rx carbonate)-vitamin D3 10 mcg (400 unit) tablet (Calcium 500 + D) magnesium chloride 64 mg 128 mg (2 x 64 mg) PO BID #60 tabs 03/23/24 04/24/24 Rx (magnesium chloride) tablet,delayed release (Mag 64) L.acidop,casei,lactis,rham-B.lact,chacha 1 cap PO DAILY #30 caps 04/02/24 04/24/24 Rx 625 mg (10 billion cell) capsule (Advanced Probiotic) bumetanide 2 mg tablet 2 mg PO BID #60 tabs 04/02/24 04/24/24 Rx levothyroxine 25 mcg tablet 25 mcg PO DAILY #30 tabs 04/02/24 04/24/24 Rx (Synthroid) spironolactone 100 mg tablet 100 mg PO BID 30 days #60 tabs 04/02/24 04/24/24 Rx Patient History Medical History Spondylolisthesis, lumbar region Scoliosis of lumbar region due to degenerative disease of spine in adult Sacroiliitis Postural dizziness hx, found to have a recent UTI 02/28/24; no current symptoms History of pneumonia 2016, no recent issues Lumbosacral spondylosis Degenerative joint disease (DJD) of lumbar spine Hx of recurrent urinary tract infection most recent 02/28/24, no further symptoms Lumbosacral spondylosis History of COVID-19 02/28/24, asymptomatic>resolved Hx of breast cancer dx 2017, right breast mastectomy>no limb restriction Hypertension Hyperlipidemia Surgical History Post-operative state History of bilateral tubal ligation Hx of colonoscopy Hx of eye surgery age 4 Hx of tonsillectomy Hx of right mastectomy no limb restriction Family History Family/Other Breast cancer Herself Mother Myocardial infarction Denies family history of Ovarian cancer Colorectal cancer Social History Smoking Status: Former smoker Tobacco Type: Cigarettes Second Hand Exposure: No; Do You Dip or Chew Tobacco: No; Hx Alcohol Use: Yes Alcohol type: wine Hx Substance Use: No Preferred Language: Cameroonian Communication Ability: Effective Visual Impairment: No Limitations Portable Irrigation Operator Required: No Beliefs That Will Affect Care: None Current Living Situation: Family Current Living Situation Comment: lives with sister Other Information That Helps Us Care for You: No Feels Safe at Home: Yes Safety Concerns: Feels Safe At This Time Assistive Devices: Cane Review of Systems Constitutional: + weakness; no fever and no chills Respiratory: no cough Cardiovascular: no chest pain Gastrointestinal: + constipation; no abdominal pain Psychiatric: no problem reported Physical Exam Constitutional: well developed Respiratory: normal respiratory effort Cardiovascular: Rate/Rhythm: regular rate Gastrointestinal (Abdomen): normal bowel sounds, soft, nontender, no hepatosplenomegaly Psychiatric: Orientation: alert and oriented x 3 Results & Data Vital Signs (Past 12 Hours) Vital Signs Temp Pulse Pulse Pulse Resp BP Pulse Ox 04/25/24 07:24 100 H 04/25/24 07:23 100 H 04/25/24 07:02 36.6 C 63 16 107/57 L 95 04/25/24 02:49 36.6 C 89 18 118/63 97 04/24/24 23:09 36.7 C 93 H 18 113/61 96 O2 Del Method 04/25/24 07:24 04/25/24 07:23 04/25/24 07:02 Room Air 04/25/24 02:49 Room Air 04/24/24 23:09 Room Air Laboratory Results Laboratory Results - last 48 hr 04/24/24 04/24/24 04/24/24 12:50 12:58 13:02 WBC 8.11 RBC 4.17 L Hgb 12.4 Hct 37.6 MCV 90.2 MCH 29.7 MCHC 33.0 RDW Std Deviation 43.8 RDW Coeff of Dorian 13.4 Plt Count MPV 11.6 Immature Gran % (Auto) 0.5 Neut % (Auto) 64.9 Lymph % (Auto) 17.4 Mcminn % (Auto) 14.8 Eos % (Auto) 1.8 Baso % (Auto) 0.6 Neut # (Auto) 5.26 Lymph # (Auto) 1.41 Mcminn # (Auto) 1.20 H Eos # (Auto) 0.15 Baso # (Auto) 0.05 Immature Gran # (Auto) 0.04 Polychromasia 1+ PT 11.4 INR 1.1 Sodium 125 L Potassium 4.7 Chloride 90 L Carbon Dioxide 25 Anion Gap 10 BUN 31 H Creatinine 1.60 H Est Cr Clr Drug Dosing Not Reportable eGFR 33.22 BUN/Creatinine Ratio 19.4 Glucose 106 H Osmolality 271 L Lactate 1.9 Calcium 10.4 H Magnesium 2.0 Total Bilirubin 1.5 H AST 29 ALT 15 Alkaline Phosphatase 76 Ammonia 87.0 H Troponin I High Sens 9.1 B-Natriuretic Peptide 24 Total Protein 7.0 Albumin 3.5 Globulin 3.5 Albumin/Globulin Ratio 1.0 TSH 1.469 Urine Color Urine Appearance Urine pH Ur Specific Niles Urine Protein Urine Glucose (UA) Urine Ketones Urine Blood Urine Nitrite Urine Bilirubin Urine Urobilinogen Ur Leukocyte Esterase Urine WBC (Auto) Urine RBC (Auto) U Hyaline Cast (Auto) U Epithel Cells (Auto) Urine Bacteria (Auto) Hyaline Casts Urine Osmolality 04/24/24 04/24/24 04/25/24 18:10 19:18 06:10 WBC 7.41 RBC 3.49 L Hgb 10.4 L Hct 31.0 L MCV 88.8 MCH 29.8 MCHC 33.5 RDW Std Deviation 43.6 RDW Coeff of Dorian 13.4 Plt Count 155 MPV 9.5 Immature Gran % (Auto) Neut % (Auto) Lymph % (Auto) Mcminn % (Auto) Eos % (Auto) Baso % (Auto) Neut # (Auto) Lymph # (Auto) Mcminn # (Auto) Eos # (Auto) Baso # (Auto) Immature Gran # (Auto) Polychromasia PT INR Sodium 125 L 128 L Potassium 4.3 4.3 Chloride 92 L 97 L Carbon Dioxide 23 23 Anion Gap 10 8 BUN 30 H 31 H Creatinine 1.54 H 1.54 H Est Cr Clr Drug Dosing 26.7 26.4 eGFR 34.78 34.78 BUN/Creatinine Ratio 19.5 20.1 H Glucose 107 H 95 Osmolality Lactate Calcium 9.5 9.2 Magnesium 1.9 Total Bilirubin 1.2 H AST 26 ALT 13 Alkaline Phosphatase 59 Ammonia 30.0 Troponin I High Sens B-Natriuretic Peptide Total Protein 5.6 L Albumin 2.9 L Globulin 2.7 Albumin/Globulin Ratio 1.1 TSH Urine Color Yellow Urine Appearance Clear Urine pH 6.0 Ur Specific Niles 1.009 Urine Protein Negative Urine Glucose (UA) Negative Urine Ketones Negative Urine Blood 3+ H Urine Nitrite Negative Urine Bilirubin Negative Urine Urobilinogen Negative Ur Leukocyte Esterase Negative Urine WBC (Auto) 0-5 Urine RBC (Auto) 11-20 H U Hyaline Cast (Auto) 11-20 H U Epithel Cells (Auto) 3-5 H Urine Bacteria (Auto) None Seen Hyaline Casts Present A Urine Osmolality 298 L PG Care Time/CCT Total # of Minutes Spent Total Time Spent with Patient: Total time spent is greater than 50% in coordination of care (as documented) at patient's floor/unit and/or counseling patient: Coding Level of Care Code 82785 INT INP/OBS CARE MIN Diagnoses Alcoholic cirrhosis of liver K70.30
--- NOTE | 2024-04-25 10:10 | Nephrology Consultation ---
Date of Consultation April 25, 2024 Assessment & Plan (1) ELVA (acute kidney injury): Creat went from baseline 0.5 to 1.6 and does qualify as ELVA. In liver cirrhoitc patient creat of 1.6 is very abnormal. Could be attributed to BUmex and Aldactone start at this point. Check UA and urine na and creat. Other D/d is ATN and also hepatorenal syndrome. urine tests helpful to sort out. renal US pending. No ascites on clinical exam. Most likely will be sending her home with loop diuretics alone at lower dose and then if she tolerates ( creat and Na) then add aldactone next (2) Acute hyponatremia: With her underlying Liver cirrhosis she is at very high risk for this. also very low PO intake of solid food but still high fluid intake including daily wine. This mean there is some degree of tea/toast syndrome also. Plus the volume depletion created by recent start of diuretics. for now hold both the diuretics. gentle NS @ 60 ml/hr at least till AM tomorrow. Goal Na will be about 130+. (3) Alcoholic cirrhosis of liver: Still drinking and is the main issue here. Plan Time spent 55 mins History of Present Illness Reason for Consultation: ELVA and Hyponatremia in a Liver cirrhosis patient Attending Physician: Aubrey Geiger MD History of Present Illness 74/F with alcoholic cirrhosis, hypertension, hyperlipidemia, hypothyroidism and other medical problems listed below who presented from home yesterday with confusion and weakness x 1 week. She was admitted 03/17- for vaginal bleeding and profound anemia requiring 5 units of packed red blood cells throughout hospitalization. OBGYN was consulted and patient underwent D&C with myomectomy. Was also started on norethindrone at that time. Was then admitted 03/28- for 20 pound weight gain. 2D echo showed normal EF but CT abdomen pelvis revealed ascites and a cirrhotic liver with evidence of portal hypertension. Was started on Aldactone and Bumex with significant diuresis and discharged on BUmex and aldactone. On the day of recent Discharge 04/02 na was 133 Creat was 0.5. during this last admission na was in the 130's. but the previous Admission she had na as low as 119 and HCTZ/Lisinopril was stopped that time. On admission yesterday creat was 1.6 and na was 125. Overnight Diuretics held and NS given. now Na 128 and creat 1.5. ROS----She has generalized weakness, increased fatigue and some confusion over the past week. Lives with sister, who provides most of the history today. She Has been taking medications. Does not eat very much. Still drinking 4 glasses of wine nightly. No fever, chills, lightheadedness, headache, chest pain, shortness of breath. No nausea, vomiting or abdominal pain. Having some constipation over the past few days. Has lost an additional 15 pounds since admission with diuresis. Vaginal bleeding has resumed over the past week. otherwise 12 Systems reviewed and negative. Exam: Awake and alert. Oriented x 3. NO resp Distress. Chest b/l Clear. CVS--RRR. Abd--soft non tender and no obvious ascites noted. ext--no edema at all . Allergies Allergy/AdvReac Type Severity Reaction Status Date / Time hydrochlorothiazide AdvReac Intermediate Unknown Verified 04/07/24 13:23 Home Medications Medication Instructions Recorded Confirmed Type simvastatin 40 mg tablet 40 mg PO QPM #0 tabs 03/11/17 04/24/24 History gabapentin 300 mg capsule 300 mg PO HS #30 caps 03/15/24 04/24/24 Rx calcium 500 mg (as 1 tab PO BID #60 tabs 03/23/24 04/24/24 Rx carbonate)-vitamin D3 10 mcg (400 unit) tablet (Calcium 500 + D) magnesium chloride 64 mg 128 mg (2 x 64 mg) PO BID #60 tabs 03/23/24 04/24/24 Rx (magnesium chloride) tablet,delayed release (Mag 64) L.acidop,casei,lactis,rham-B.lact,chacha 1 cap PO DAILY #30 caps 04/02/24 04/24/24 Rx 625 mg (10 billion cell) capsule (Advanced Probiotic) bumetanide 2 mg tablet 2 mg PO BID #60 tabs 04/02/24 04/24/24 Rx levothyroxine 25 mcg tablet 25 mcg PO DAILY #30 tabs 04/02/24 04/24/24 Rx (Synthroid) spironolactone 100 mg tablet 100 mg PO BID 30 days #60 tabs 04/02/24 04/24/24 Rx Patient History Medical History Spondylolisthesis, lumbar region Scoliosis of lumbar region due to degenerative disease of spine in adult Sacroiliitis Postural dizziness hx, found to have a recent UTI 02/28/24; no current symptoms History of pneumonia 2016, no recent issues Lumbosacral spondylosis Degenerative joint disease (DJD) of lumbar spine Hx of recurrent urinary tract infection most recent 02/28/24, no further symptoms Lumbosacral spondylosis History of COVID-19 02/28/24, asymptomatic>resolved Hx of breast cancer dx 2017, right breast mastectomy>no limb restriction Hypertension Hyperlipidemia Surgical History Post-operative state History of bilateral tubal ligation Hx of colonoscopy Hx of eye surgery age 4 Hx of tonsillectomy Hx of right mastectomy no limb restriction Family History Family/Other Breast cancer Herself Mother Myocardial infarction Denies family history of Ovarian cancer Colorectal cancer Social History Smoking Status: Former smoker Tobacco Type: Cigarettes Second Hand Exposure: No; Do You Dip or Chew Tobacco: No; Hx Alcohol Use: Yes Alcohol type: wine Hx Substance Use: No Preferred Language: Tanzanian Communication Ability: Effective Visual Impairment: No Limitations Quality Control Director Required: No Beliefs That Will Affect Care: None Current Living Situation: Family Current Living Situation Comment: lives with sister Other Information That Helps Us Care for You: No Feels Safe at Home: Yes Safety Concerns: Feels Safe At This Time Assistive Devices: None Results & Data Vital Signs (Past 12 Hours) Vital Signs Temp Pulse Pulse Pulse Resp BP Pulse Ox 04/25/24 07:24 100 H 04/25/24 07:23 100 H 04/25/24 07:02 36.6 C 63 16 107/57 L 95 04/25/24 02:49 36.6 C 89 18 118/63 97 04/24/24 23:09 36.7 C 93 H 18 113/61 96 O2 Del Method 04/25/24 07:24 04/25/24 07:23 04/25/24 07:02 Room Air 04/25/24 02:49 Room Air 04/24/24 23:09 Room Air Laboratory Results reviewed CBC, renal panel, LFT this admission and previous admission Diagnostic Findings Renal US pending
[2024-04-25] MEDS: rifAXIMin 550 MG TABLET PO SCH (10:25)
--- NOTE | 2024-04-25 10:48 | Ultrasound Report ---
RENAL ULTRASOUND HISTORY: Acute kidney injury cathy COMPARISON: CT abdomen and pelvis 03/29/2024 FINDINGS: Right kidney: 10.1 cm. No hydronephrosis. The subcentimeter cysts of the right kidney seen on prior C T are not visualized by ultrasound. Normal corticomedullary differentiation and cortical thickness. Left kidney: 10.3 cm. No hydronephrosis. Normal corticomedullary differentiation and cortical thickne ss. Bladder: No bladder wall thickening. The bilateral ureteral jets were identified. Hepatic steatosis redemonstrated. IMPRESSION: Unremarkable renal ultrasound without hydronephrosis. ACT 112: Negative or not required by law. Electronically signed by: Addison Finney M.D. 04/25/2024 10:46 AM
[2024-04-25] MEDS: SODIUM CHLORIDE 0.9% 1,000 ML IV SCH (14:28)
--- NOTE | 2024-04-25 14:30 | Hospitalist Progress Note ---
Date of Service April 25, 2024 Assessment & Plan (1) Acute hyponatremia: (2) ELVA (acute kidney injury): (3) Weakness: (4) Alcoholic cirrhosis of liver: (5) Hypertension: (6) Hyperlipidemia: Plan This is a 74-year-old female with PMH of alcoholic cirrhosis, hypertension, hyperlipidemia, hypothyroidism and other medical problems listed below who presents from home with confusion and weakness x 1 week and was found to have hyponatremia and ELVA. Acute Kidney Injury Hyponatremia Patient presented with creatinine of 1.54 and sodium of 125. Creatinine 3 weeks ago of 0.55 History of hyponatremia in the past while patient was on hydrochlorothiazide; was stopped. 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 It may contain grammatical, syntax or spelling errors. Any formal questions or concerns about the content, text or information contained within the body of this dictation should be directly addressed to the provider for clarification Admission and Anticipated Discharge Date Admission Date: April 24, 2024 Subjective Patient seen and examined at bedside. Comfortable; not in distress. Denies fever, chills, chest pain, shortness of breath, abdominal pain or urinary symptoms. No significant overnight events Review of Systems Review of Systems: All systems reviewed & are unremarkable except as noted in Subjective Physical Exam Physical Exam: Constitutional: Alert oriented x 3; not in distress. Respiratory: Bilateral vesicular breath sound. Cardiovascular: RRR, no murmur, no edema Vessels: no JVD or carotid bruit Chest: normal inspection of chest Abdomen: normal bowel sounds, soft, nontender, no hepatosplenomegaly Musculoskeletal: no cyanosis or clubbing, extremities motor strength 5/5 Skin: no rashes, warm and dry normal turgor Neurologic: PERRL, EOMI, accommodation nl, no face palsy, no dysarthria CN's II- XI intact bilaterally and moves all extremities Psychiatric: A+Ox3, euthymic affect Results & Data Results & Data Vital Signs (Past 12 Hours) Vital Signs Temp Pulse Pulse Pulse Resp BP Pulse Ox 04/25/24 14:16 100 H 04/25/24 10:34 36.6 C 87 14 108/64 99 04/25/24 07:24 100 H 04/25/24 07:23 100 H 04/25/24 07:02 36.6 C 63 16 107/57 L 95 04/25/24 02:49 36.6 C 89 18 118/63 97 O2 Del Method 04/25/24 14:16 04/25/24 10:34 Room Air 04/25/24 07:24 04/25/24 07:23 04/25/24 07:02 Room Air 04/25/24 02:49 Room Air
[2024-04-26 06:06] LABS: Basophils # (auto) 0.04 K/uL (0.00-0.20); Basophils % (auto) 0.6 %; Eosinophils % (auto) 4.7 %; Hematocrit (blood only) 27.7 % (37.0-47.0); Hemoglobin 9.3 g/dl (12.0-16.0); Immature Granulocytes # (auto) 0.02 K/uL (0.01-0.20); Immature Granulocytes % (auto) 0.3 %; Lymphocytes # (auto) 1.84 K/uL (1.20-3.40); Lymphocytes % (auto) 28.8 %; Mean Corpuscular Hemoglobin 30.2 pg (25.0-34.0); Mean Corpuscular Hgb Conc 33.6 g/dL (32.0-36.0); Mean Corpuscular Volume 89.9 fL (80.0-100.0); Mean Platelet Volume 9.3 fL (9.4-12.4); Monocytes # (auto) 1.13 K/uL (0.11-0.59); Monocytes % (auto) 17.7 %; Neutrophils # (auto) 3.07 K/uL (1.40-6.50); Neutrophils % (auto) 47.9 %; Platelet Count 132 K/uL (130-400); RDW Coefficient of Variation 13.3 % (11.5-14.5); RDW Standard Deviation 43.9 fL (36.4-46.3); Red Blood Count 3.08 M/uL (4.20-5.40)
[2024-04-26 06:30] LABS: Appearance Urine Clear (Clear); Bacteria Urine Automated None Seen (None Seen); Bilirubin Urine Negative (Negative); Blood Urine 3+ (Negative); Color Urine Yellow; Glucose Urine UA Negative (Negative); Ketones Urine Trace (Negative); Leukocyte Esterase Urine Negative (Negative); Nitrite Urine Negative (Negative); Protein Urine Negative (Negative); Specific Gravity Urine 1.014 (1.000-1.030); Urobilinogen Urine Negative (Negative); WBC Urine Automated 0-5 /hpf (0-5)
[2024-04-26 06:33] LABS: Calcium 8.2 mg/dl (8.6-10.3); Creatinine Clr Calc Pharmacy 40.4 ml/min
--- NOTE | 2024-04-26 09:59 | Nephrology Progress Note ---
Date of Service April 26, 2024 Assessment & Plan Admission and Anticipated Discharge Date Admission Date: April 24, 2024 Subjective Assessment & Plan (1) ELVA (acute kidney injury): Creat went from baseline 0.5 to 1.6 and does qualify as ELVA. In liver cirrhoitc patient creat of 1.6 is very abnormal. Overnight came down to 1 so good recovery. Could be attributed to Bumex and Aldactone new start at this point. based on urine lytes and exam and History--pre renal type is the cause of ELVA renal US --unremarkable but no Ascites noted No ascites on clinical exam. will be sending her home with loop diuretics alone at lower dose ( Bumex 1 mg daily) and then if she tolerates ( creat and Na) then add aldactone next step. I wont be surprised if she does not need any Diuretics at all. Will titrate this as outpt (2) Acute hyponatremia: With her underlying Liver cirrhosis she is at very high risk for this. also very low PO intake of solid food but still high fluid intake including daily wine. This mean there is some degree of tea/toast syndrome also. Plus the volume depletion created by recent start of diuretics. for today hold both the diuretics. restart BUmex at much lower dose of 1 daily from tomorrow na went up to 130. She will have slightly low Na going forward though (3) Alcoholic cirrhosis of liver: Still drinking and is the main issue here. S--She feels fine. NO new issues. No edema, Ascites or SOB Appetite is baseline ( poor) Exam: Awake and alert. Oriented x 3. NO resp Distress. Chest b/l Clear. CVS--RRR. Abd--soft non tender and no obvious ascites noted. ext--no edema at all . Results & Data Vital Signs (Past 12 Hours) Vital Signs Temp Pulse Pulse Pulse Resp BP Pulse Ox 04/26/24 09:07 04/26/24 07:14 84 04/26/24 07:11 36.8 C 90 16 106/53 L 90 04/26/24 02:44 36.8 C 88 18 120/78 95 04/25/24 22:50 36.7 C 82 18 116/60 96 04/25/24 22:41 87 O2 Del Method 04/26/24 09:07 Room Air 04/26/24 07:14 04/26/24 07:11 Room Air 04/26/24 02:44 Room Air 04/25/24 22:50 Room Air 04/25/24 22:41
--- NOTE | 2024-04-26 10:02 | Gastroenterology Progress Note ---
Date of Service April 26, 2024 Assessment & Plan (1) Alcoholic cirrhosis of liver: Plan: -Xifaxan 550 mg BID given concerns for hepatic encephalopathy -Discussed importance of avoiding constipation -Sodium restriction to <2000 mg daily -Avoid NSAIDs; ok to use Tylenol up to 2000 mg daily in q 6 hr divided doses -Continue diuretic adjustment per nephrology; Currently insufficient fluid noted on abdominal imaging to warrant a paracentesis -Will need outpatient follow-up with [facility] for further cirrhosis/portal hypertension work-up as well as ongoing HCC surveillance and EGD for variceal surveillance -Hepatitis A, B, C testing negative during previous admission; Can consider immunization for Hep A/B as outpatient with [facility] or PCP -Alcohol abstinence advised; She is considering rehab upon discharge Admission and Anticipated Discharge Date Admission Date: April 24, 2024 Supervising Physician Co-Signing Physician Notes I saw and examined this patient with our nurse practitioner and agree with her assessment and plan. Clinically improving resolving hepatic encephalopathy precipitated by hyponatremia diuretics and alcohol. Patient has agreed to go to alcohol rehab as an inpatient. Once discharged from rehab she should only get a screening endoscopy for esophageal varices and follow-up with hepatology as an outpatient. She has a follow-up visit with [facility]. Subjective Patient is a 74 yo female with alcoholic cirrhosis hospitalized with confusion and found to have hyponatremia. She is alert and oriented x 3 today. She notes she is moving her bowels. She tells me she is strongly considering going to rehab after her inpatient medical stay is complete. No new GI complaints. Na 130 today. Nephrology following for diuretic management & following hyponatremia. Review of Systems Gastrointestinal: no abdominal pain and no constipation Integumentary: no yellowing of the skin Physical Exam Constitutional: well developed Respiratory: normal respiratory effort Gastrointestinal (Abdomen): normal bowel sounds, soft, nontender, no hepatosplenomegaly Psychiatric: Orientation: alert and oriented x 3 Results & Data Results & Data Vital Signs (Past 12 Hours) Vital Signs Temp Pulse Pulse Pulse Resp BP Pulse Ox 04/26/24 09:07 04/26/24 07:14 84 04/26/24 07:11 36.8 C 90 16 106/53 L 90 04/26/24 02:44 36.8 C 88 18 120/78 95 04/25/24 22:50 36.7 C 82 18 116/60 96 04/25/24 22:41 87 O2 Del Method 04/26/24 09:07 Room Air 04/26/24 07:14 04/26/24 07:11 Room Air 04/26/24 02:44 Room Air 04/25/24 22:50 Room Air 04/25/24 22:41 Laboratory Results Laboratory Results - last 48 hr 04/24/24 04/24/24 04/24/24 12:50 12:58 13:02 WBC 8.11 RBC 4.17 L Hgb 12.4 Hct 37.6 MCV 90.2 MCH 29.7 MCHC 33.0 RDW Std Deviation 43.8 RDW Coeff of Dorian 13.4 Plt Count MPV 11.6 Immature Gran % (Auto) 0.5 Neut % (Auto) 64.9 Lymph % (Auto) 17.4 [place] % (Auto) 14.8 Eos % (Auto) 1.8 Baso % (Auto) 0.6 Neut # (Auto) 5.26 Lymph # (Auto) 1.41 [place] # (Auto) 1.20 H Eos # (Auto) 0.15 Baso # (Auto) 0.05 Immature Gran # (Auto) 0.04 Polychromasia 1+ PT 11.4 INR 1.1 Sodium 125 L Potassium 4.7 Chloride 90 L Carbon Dioxide 25 Anion Gap 10 BUN 31 H Creatinine 1.60 H Est Cr Clr Drug Dosing Not Reportable eGFR 33.22 BUN/Creatinine Ratio 19.4 Glucose 106 H Osmolality 271 L Lactate 1.9 Calcium 10.4 H Magnesium 2.0 Total Bilirubin 1.5 H AST 29 ALT 15 Alkaline Phosphatase 76 Ammonia 87.0 H Troponin I High Sens 9.1 B-Natriuretic Peptide 24 Total Protein 7.0 Albumin 3.5 Globulin 3.5 Albumin/Globulin Ratio 1.0 TSH 1.469 Urine Color Urine Appearance Urine pH Ur Specific [place] Urine Protein Urine Glucose (UA) Urine Ketones Urine Blood Urine Nitrite Urine Bilirubin Urine Urobilinogen Ur Leukocyte Esterase Urine WBC (Auto) Urine RBC (Auto) U Hyaline Cast (Auto) U Epithel Cells (Auto) Urine Bacteria (Auto) Hyaline Casts Urine Osmolality Ur Random Creatinine Ur Random Sodium 04/24/24 04/24/24 04/25/24 18:10 19:18 06:10 WBC 7.41 RBC 3.49 L Hgb 10.4 L Hct 31.0 L MCV 88.8 MCH 29.8 MCHC 33.5 RDW Std Deviation 43.6 RDW Coeff of Dorian 13.4 Plt Count 155 MPV 9.5 Immature Gran % (Auto) Neut % (Auto) Lymph % (Auto) [place] % (Auto) Eos % (Auto) Baso % (Auto) Neut # (Auto) Lymph # (Auto) [place] # (Auto) Eos # (Auto) Baso # (Auto) Immature Gran # (Auto) Polychromasia PT INR Sodium 125 L 128 L Potassium 4.3 4.3 Chloride 92 L 97 L Carbon Dioxide 23 23 Anion Gap 10 8 BUN 30 H 31 H Creatinine 1.54 H 1.54 H Est Cr Clr Drug Dosing 26.7 26.4 eGFR 34.78 34.78 BUN/Creatinine Ratio 19.5 20.1 H Glucose 107 H 95 Osmolality Lactate Calcium 9.5 9.2 Magnesium 1.9 Total Bilirubin 1.2 H AST 26 ALT 13 Alkaline Phosphatase 59 Ammonia 30.0 Troponin I High Sens B-Natriuretic Peptide Total Protein 5.6 L Albumin 2.9 L Globulin 2.7 Albumin/Globulin Ratio 1.1 TSH Urine Color Yellow Urine Appearance Clear Urine pH 6.0 Ur Specific [place] 1.009 Urine Protein Negative Urine Glucose (UA) Negative Urine Ketones Negative Urine Blood 3+ H Urine Nitrite Negative Urine Bilirubin Negative Urine Urobilinogen Negative Ur Leukocyte Esterase Negative Urine WBC (Auto) 0-5 Urine RBC (Auto) 11-20 H U Hyaline Cast (Auto) 11-20 H U Epithel Cells (Auto) 3-5 H Urine Bacteria (Auto) None Seen Hyaline Casts Present A Urine Osmolality 298 L Ur Random Creatinine Ur Random Sodium 04/26/24 04/26/24 05:52 Unknown WBC 6.40 RBC 3.08 L Hgb 9.3 L Hct 27.7 L MCV 89.9 MCH 30.2 MCHC 33.6 RDW Std Deviation 43.9 RDW Coeff of Dorian 13.3 Plt Count 132 MPV 9.3 L Immature Gran % (Auto) 0.3 Neut % (Auto) 47.9 Lymph % (Auto) 28.8 [place] % (Auto) 17.7 Eos % (Auto) 4.7 Baso % (Auto) 0.6 Neut # (Auto) 3.07 Lymph # (Auto) 1.84 [place] # (Auto) 1.13 H Eos # (Auto) 0.30 Baso # (Auto) 0.04 Immature Gran # (Auto) 0.02 Polychromasia PT INR Sodium 130 L Potassium 4.0 Chloride 104 Carbon Dioxide 22 Anion Gap 4 BUN 21 Creatinine 1.00 D Est Cr Clr Drug Dosing 40.4 eGFR 58.39 BUN/Creatinine Ratio 21.0 H Glucose 83 Osmolality Lactate Calcium 8.2 L Magnesium Total Bilirubin AST ALT Alkaline Phosphatase Ammonia Troponin I High Sens B-Natriuretic Peptide Total Protein Albumin Globulin Albumin/Globulin Ratio TSH Urine Color Yellow Urine Appearance Clear Urine pH 6.0 Ur Specific [place] 1.014 Urine Protein Negative Urine Glucose (UA) Negative Urine Ketones Trace H Urine Blood 3+ H Urine Nitrite Negative Urine Bilirubin Negative Urine Urobilinogen Negative Ur Leukocyte Esterase Negative Urine WBC (Auto) 0-5 Urine RBC (Auto) 11-20 H U Hyaline Cast (Auto) 3-5 H U Epithel Cells (Auto) 3-5 H Urine Bacteria (Auto) None Seen Hyaline Casts Urine Osmolality Ur Random Creatinine 89.4 Ur Random Sodium 23 PG Care Time/CCT Total # of Minutes Spent Total Time Spent with Patient: Total time spent is greater than 50% in coordination of care (as documented) at patient's floor/unit and/or counseling patient: Coding Level of Care Code 76086 SUB INP/OBS CARE 3/50MIN Diagnoses Alcoholic cirrhosis of liver K70.30
--- NOTE | 2024-04-26 11:14 | Electrocardiogram Report ---
Test Reason : Blood Pressure : */* mmHG Vent. Rate : 93 BPM Atrial Rate : 93 BPM P-R Int : 176 ms QRS Dur : 92 ms QT Int : 362 ms P-R-T Axes : 58 53 63 degrees QTcB Int : 450 ms Normal sinus rhythm Normal ECG When compared with ECG of 28-Mar-2024 12:32, Minimal criteria for Anterior infarct are no longer Present Nonspecific T wave abnormality no longer evident in Inferior leads T wave amplitude has increased in Anterolateral leads Confirmed by Emir Barnes [id number] on 04/26/2024 11:14:16 AM Referred By: Confirmed By: Emir Barnes
--- NOTE | 2024-04-26 14:43 | Hospitalist Progress Note ---
Date of Service April 26, 2024 Assessment & Plan (1) Acute hyponatremia: (2) ELVA (acute kidney injury): (3) Weakness: (4) Alcoholic cirrhosis of liver: (5) Hypertension: (6) Hyperlipidemia: Plan Patient is a 74 yr female with PMH of alcoholic cirrhosis, hypertension, hyp erlipidemia, hypothyroidism and other medical problems listed below who presents from home with confusion and weakness x 1 week and was found to have hyponatremia and ELVA. Acute Kidney Injury likely prerenal Hyponatremia H/O cirrhosis, previously on HCTZ which was discontinued --Renal USD:Unremarkable renal ultrasound without hydronephrosis. 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+ glasses of wine nightly per sister at bedside Continue lactulose Started on rifaximin Resume diuretics as able Need outpatient EGD for surveillance of varices Needs follow-up with GI on discharge Counseled to quit drinking Plan to discharge to rehab facility as able Vaginal bleeding Developed severe anemia requiring 5u prbcs when admitted in Mar 2024 S/p D&C with myomectomy Following with [facility] Currently denies any bleeding issues Monitor CBC Hypothyroidism Continue recently started levothyroxine F/u for outpatient TFTs Weight loss Has reportedly lost 15-20# since last hospitalization Poor diet per sister, chronic etoh use 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 DVT Px: SCDs for now Code status: FULL CODE Disposition Rehab as able Admission and Anticipated Discharge Date Admission Date: April 24, 2024 Subjective Patient is seen and examined at bedside States feeling weak and tired No complaints otherwise Denies any chest pain, dyspnea, nausea, vomiting, abdominal pain Renal function improved Review of Systems Review of Systems: All systems reviewed & are unremarkable except as noted in Subjective Physical Exam Physical Exam: Physical Exam: Vitals signs as noted above General Appearance:Moderately built and nourished, no apparent distress Head: normocephalic, Atraumatic Eyes: normal inspection, EOMI Neck: supple, Trachea midline Respiratory/Chest: Normal breath sounds, CTA, No accessory muscle use Cardiovascular: S1, S2, No murmur Abdomen/GI:Soft, Non tender, Bowel sounds present Extremities/Musculoskeletal:normal inspection, Trace edema Neurologic/Psych:AAOX3, grossly no focal neurological deficits Skin: normal color, warm Results & Data Results & Data Vital Signs (Past 12 Hours) Vital Signs Temp Pulse Pulse Resp BP Pulse Ox O2 Del Method 04/26/24 11:30 36.3 C L 81 18 103/55 L 100 Room Air 04/26/24 09:07 Room Air 04/26/24 07:14 84 04/26/24 07:11 36.8 C 90 16 106/53 L 90 Room Air 04/26/24 02:44 36.8 C 88 18 120/78 95 Room Air Laboratory Results Short CBC 04/26/24 Range/Units 05:52 WBC 6.40 (4.8-10.8) K/ul Hgb 9.3 L (12.0-16.0) g/dl Hct 27.7 L (37.0-47.0) % Plt Count 132 (130-400) K/uL BMP 04/26/24 05:52 Sodium 130 L Potassium 4.0 Chloride 104 Carbon Dioxide 22 BUN 21 Creatinine 1.00 D Glucose 83 Calcium 8.2 L Urine 04/26/24 Range/Units Unknown Urine Color Yellow Urine Appearance Clear (Clear) Urine pH 6.0 (4.5-7.5) Ur Specific [place] 1.014 (1.000-1.030) Urine Protein Negative (Negative) Urine Glucose (UA) Negative (Negative)
[2024-04-27 06:08] LABS: Hematocrit (blood only) 28.5 % (37.0-47.0); Hemoglobin 9.1 g/dl (12.0-16.0)
[2024-04-27 06:25] LABS: BUN Creatinine Ratio 14.5 (10-20); Calcium 8.1 mg/dl (8.6-10.3); Creatinine Clr Calc Pharmacy 48.8 ml/min; Potassium 3.8 mmol/L (3.5-5.1)
--- NOTE | 2024-04-27 10:43 | Nephrology Progress Note ---
Date of Service April 27, 2024 Assessment & Plan Admission and Anticipated Discharge Date Admission Date: April 24, 2024 Subjective Assessment & Plan (1) ELVA (acute kidney injury): Creat went from baseline 0.5 to 1.6 and does qualify as ELVA. In liver cirrhoitc patient creat of 1.6 is very abnormal. Overnight came down to 1 so good recovery. Could be attributed to Bumex and Aldactone new start at this point. based on urine lytes and exam and History--pre renal type is the cause of ELAV renal US --unremarkable but no Ascites noted No ascites on clinical exam. Creat is better today but not baseline yet will be sending her home with loop diuretics alone at lower dose ( Bumex 1 mg daily) and then if she tolerates ( creat and Na) then add aldactone next step. I wont be surprised if she does not need any Diuretics at all. Will titrate this as outpt (2) Acute hyponatremia: With her underlying Liver cirrhosis she is at very high risk for this. also very low PO intake of solid food but still high fluid intake including daily wine. This mean there is some degree of tea/toast syndrome also. Plus the volume depletion created by recent start of diuretics. restart BUmex at much lower dose of 1 daily. hard to know how much diuretics she needs as we dont know how her food and alcohol intake going to be if she goes to rehab. na went up to 130 and is 129 tody. She will have slightly low Na going forward though (3) Alcoholic cirrhosis of liver: Still drinking and is the main issue here. S--She feels fine. NO new issues. No edema, Ascites or SOB Appetite is baseline ( poor) Exam: Awake and alert. Oriented x 3. NO resp Distress. Chest b/l Clear. CVS--RRR. Abd--soft non tender and no obvious ascites noted. ext--no edema at all . Results & Data Vital Signs (Past 12 Hours) Vital Signs Temp Pulse Resp BP Pulse Ox O2 Del Method 04/27/24 07:05 36.4 C L 82 18 96/43 L 98 Room Air 04/27/24 03:26 36.7 C 90 18 123/72 98 Room Air 04/26/24 23:39 36.5 C 70 18 106/59 L 97 Room Air
[2024-04-27 11:05] VITALS: BP 109/60; RESP 19; TEMP 98.1; O2SAT 96
[2024-04-27] MEDS: BUMETANIDE 1 MG TAB PO SCH (11:38)
--- NOTE | 2024-04-27 12:03 | Hospitalist Progress Note ---
Date of Service April 27, 2024 Assessment & Plan (1) Acute hyponatremia: (2) ELVA (acute kidney injury): (3) Weakness: (4) Alcoholic cirrhosis of liver: (5) Hypertension: (6) Hyperlipidemia: Plan Patient is a 74 yr female with PMH of alcoholic cirrhosis, hypertension, hyp erlipidemia, hypothyroidism and other medical problems listed below who presents from home with confusion and weakness x 1 week and was found to have hyponatremia and ELVA. Acute Kidney Injury likely prerenal Hyponatremia H/O cirrhosis, previously on HCTZ which was discontinued --Renal USD:Unremarkable renal ultrasound without hydronephrosis. 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, still drinking 4+ glasses of wine nightly per sister at bedside Continue lactulose Started on rifaximin Resumed diuretic as above Need outpatient EGD for surveillance of varices Needs follow-up with GI on discharge Counseled to quit drinking Vaginal bleeding Developed severe anemia requiring 5u prbcs when admitted in Mar 2024 S/p D&C with myomectomy Following with [facility] Currently denies any bleeding issues Monitor CBC Advised to follow-up with [facility] as outpatient Hypothyroidism Continue recently started levothyroxine F/u for outpatient TFTs Weight loss Has reportedly lost 15-20# since last hospitalization Poor diet per sister, 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 DVT Px: SCDs for now Code status: FULL CODE Disposition Rehab as able Admission and Anticipated Discharge Date Admission Date: April 24, 2024 Subjective Patient is seen and examined at bedside States having poor sleep overnight No new complaints today Renal function stable Discussed with nephrology today Denies any chest pain, dyspnea, nausea, vomiting, abdominal pain Plan to be discharged to rehab facility as able Review of Systems Review of Systems: All systems reviewed & are unremarkable except as noted in Subjective Physical Exam 2 Physical Exam: Physical Exam: Vitals signs as noted above General Appearance:Moderately built and nourished, no apparent distress Head: normocephalic, Atraumatic Eyes: normal inspection, EOMI Neck: supple, Trachea midline Respiratory/Chest: Normal breath sounds, CTA, No accessory muscle use Cardiovascular: S1, S2, No murmur Abdomen/GI:Soft, Non tender, Bowel sounds present Extremities/Musculoskeletal:normal inspection, Trace edema Neurologic/Psych:AAOX3, grossly no focal neurological deficits Skin: normal color, warm Results & Data Results & Data Vital Signs (Past 12 Hours) Vital Signs Temp Pulse Resp BP Pulse Ox O2 Del Method 04/27/24 11:03 36.7 C 81 19 109/60 96 Room Air 04/27/24 07:05 36.4 C L 82 18 96/43 L 98 Room Air 04/27/24 03:26 36.7 C 90 18 123/72 98 Room Air Laboratory Results Short CBC 04/27/24 Range/Units 05:28 Hgb 9.1 L (12.0-16.0) g/dl Hct 28.5 L (37.0-47.0) % BMP 04/27/24 05:28 Sodium 129 L Potassium 3.8 Chloride 105 Carbon Dioxide 19 L BUN 12 Creatinine 0.83 Glucose 82 Calcium 8.1 L
--- NOTE | 2024-04-27 12:43 | Discharge Summary ---
Date of Service April 27, 2024 Admission HPI Per Admitting Provider This is a 74-year-old female with PMH of alcoholic cirrhosis, hypertension, hyperlipidemia, hypothyroidism and other medical problems listed below who presents from home with confusion and weakness x 1 week. Patient with recent admissions in the past few months, starting hospitalization 03/17- for vaginal bleeding and profound anemia requiring 5 units of packed red blood cells throughout hospitalization. OBGYN was consulted and patient underwent D&C with myomectomy. Was also started on norethindrone at that time. Was then admitted 03/28- for 20 pound weight gain. 2D echo showed normal EF but CT abdomen pelvis revealed ascites and a cirrhotic liver with evidence of portal hypertension. Disclosed significant alcohol use at that time of 6 glasses of wine daily. Was started on Aldactone and Bumex with significant diuresis and discharged with plans for follow-up with gastroenterology for underlying liver disease (appt scheduled in mid-July). Presents with generalized weakness, increased fatigue and some confusion over the past week or 2. Lives with sister, who provides most of the history today. Has been taking medications. Does not eat very much. Still drinking 4 glasses of wine nightly, per sister. No fever, chills, lightheadedness, headache, chest pain, shortness of breath. No nausea, vomiting or abdominal pain. Having some constipation over the past few days. Is not eating much but does not have very much of an appetite at baseline, says sister. Has lost an additional 15 pounds since admission for diuresis. Vaginal bleeding has resumed to a lesser degree over the past week. Called obgyn who instructed them to call back if bleeding significantly increased to the point of soaking through a pad within 2 hours. Admission Exam Per Admitting Provider General Appearance: WD/WN, vitals as above, NAD, sitting up in bed, pleasant, lethargic Head: normocephalic, atraumatic Eyes: normal inspection, PERRL, conjunctivae normal, anicteric sclerae ENT: external ear and nose normal, oropharynx normal Neck: normal visual inspection, trachea midline, no thyromegaly Respiratory: normal respiratory effort, lungs clear to auscultation, no wheeze, rales, rhonchi. No accessory muscle use Cardiovascular: regular rate, rhythm, no murmur, normal peripheral pulses, no BLE edema. Vessels: no JVD Chest: normal inspection of chest Abdomen/GI: normal bowel sounds, soft, nontender, no hepatosplenomegaly Extremities/Musculoskeletal: no cyanosis or clubbing, extremities motor strength 5/5 Neurologic: PERRL, EOMI, accommodation nl, no face palsy, no dysarthria, CN's II-XI intact bilaterally and moves all extremities Psychiatric: A+Ox3, euthymic affect Skin: no rashes, normal color, warm/dry Principal Diagnosis Acute Kidney Injury Chronic hyponatremia Alcoholic cirrhosis Transient vaginal bleeding H/O D&C with myomectomy Hypothyroidism Alcoholic cirrhosis Discharge Data Allergies Allergy/AdvReac Type Severity Reaction Status Date / Time hydrochlorothiazide AdvReac Intermediate Unknown Verified 04/07/24 13:23 Consultations 04/24/24 16:09 ED Decision to Admit Stat 04/25/24 07:00 Consult Gastroenterology Routine Consult Nephrology Routine Procedures Performed Laboratory Results WBC 6.40 K/ul (4.8-10.8) 04/26/24 05:52 RBC 3.08 M/uL (4.20-5.40) L 04/26/24 05:52 Hgb 9.1 g/dl (12.0-16.0) L 04/27/24 05:28 Hct 28.5 % (37.0-47.0) L 04/27/24 05:28 MCV 89.9 fL (80.0-100.0) 04/26/24 05:52 MCH 30.2 pg (25.0-34.0) 04/26/24 05:52 MCHC 33.6 g/dL (32.0-36.0) 04/26/24 05:52 RDW Std Deviation 43.9 fL (36.4-46.3) 04/26/24 05:52 RDW Coeff of Dorian 13.3 % (11.5-14.5) 04/26/24 05:52 Plt Count 132 K/uL (130-400) 04/26/24 05:52 MPV 9.3 fL (9.4-12.4) L 04/26/24 05:52 Immature Gran % (Auto) 0.3 % 04/26/24 05:52 Neut % (Auto) 47.9 % 04/26/24 05:52 Lymph % (Auto) 28.8 % 04/26/24 05:52 Citrus % (Auto) 17.7 % 04/26/24 05:52 Eos % (Auto) 4.7 % 04/26/24 05:52 Baso % (Auto) 0.6 % 04/26/24 05:52 Neut # (Auto) 3.07 K/uL (1.40-6.50) 04/26/24 05:52 Lymph # (Auto) 1.84 K/uL (1.20-3.40) 04/26/24 05:52 Citrus # (Auto) 1.13 K/uL (0.11-0.59) H 04/26/24 05:52 Eos # (Auto) 0.30 K/uL (0.00-0.50) 04/26/24 05:52 Baso # (Auto) 0.04 K/uL (0.00-0.20) 04/26/24 05:52 Immature Gran # (Auto) 0.02 K/uL (0.01-0.20) 04/26/24 05:52 Polychromasia 1+ 04/24/24 12:58 PT 11.4 Seconds (9.0-12.0) 04/24/24 12:58 INR 1.1 (0.9-1.1) 04/24/24 12:58 Sodium 129 mmol/L (136-145) L 04/27/24 05:28 Potassium 3.8 mmol/L (3.5-5.1) 04/27/24 05:28 Chloride 105 mmol/L (98-107) 04/27/24 05:28 Carbon Dioxide 19 mmol/L (21-32) L 04/27/24 05:28 Anion Gap 5 (3-11) 04/27/24 05:28 BUN 12 mg/dl (6-23) 04/27/24 05:28 Creatinine 0.83 mg/dl (0.6-1.2) 04/27/24 05:28 Est Cr Clr Drug Dosing 48.8 ml/min 04/27/24 05:28 eGFR 73.02 04/27/24 05:28 BUN/Creatinine Ratio 14.5 (10-20) 04/27/24 05:28 Glucose 82 mg/dl (70-99(Fasting)) 04/27/24 05:28 Osmolality 271 mOsm/kg (280-300) L 04/24/24 12:58 Lactate 1.9 mmol/L (0.4-2.0) 04/24/24 13:02 Calcium 8.1 mg/dl (8.6-10.3) L 04/27/24 05:28 Magnesium 1.9 mg/dl (1.7-2.4) 04/25/24 06:10 Total Bilirubin 1.2 mg/dl (0.2-1.0) H 04/25/24 06:10 AST 26 U/L (13-39) 04/25/24 06:10 ALT 13 U/L (7-52) 04/25/24 06:10 Alkaline Phosphatase 59 U/L (34-104) 04/25/24 06:10 Ammonia 30.0 umol/L (18-72) 04/25/24 06:10 Troponin I High Sens 9.1 pg/ml (0-14) 04/24/24 12:58 B-Natriuretic Peptide 24 pg/ml (0-100) 04/24/24 12:58 Total Protein 5.6 gm/dl (6.0-8.3) L 04/25/24 06:10 Albumin 2.9 gm/dl (3.4-5.0) L 04/25/24 06:10 Globulin 2.7 gm/dl (2.5-4.0) 04/25/24 06:10 Albumin/Globulin Ratio 1.1 (0.9-2) 04/25/24 06:10 TSH 1.469 uIu/ml (0.300-4.500) 04/24/24 12:58 Urine Color Yellow 04/26/24 Unknown Urine Appearance Clear (Clear) 04/26/24 Unknown Urine pH 6.0 (4.5-7.5) 04/26/24 Unknown Ur Specific Nash 1.014 (1.000-1.030) 04/26/24 Unknown Urine Protein Negative (Negative) 04/26/24 Unknown Urine Glucose (UA) Negative (Negative) 04/26/24 Unknown Urine Ketones Trace (Negative) H 04/26/24 Unknown Urine Blood 3+ (Negative) H 04/26/24 Unknown Urine Nitrite Negative (Negative) 04/26/24 Unknown Urine Bilirubin Negative (Negative) 04/26/24 Unknown Urine Urobilinogen Negative (Negative) 04/26/24 Unknown Ur Leukocyte Esterase Negative (Negative) 04/26/24 Unknown Urine WBC (Auto) 0-5 /hpf (0-5) 04/26/24 Unknown Urine RBC (Auto) 11-20 /hpf (0-2) H 04/26/24 Unknown U Hyaline Cast (Auto) 3-5 /lpf (0-2) H 04/26/24 Unknown U Epithel Cells (Auto) 3-5 /hpf (0-2) H 04/26/24 Unknown Urine Bacteria (Auto) None Seen (None Seen) 04/26/24 Unknown Hyaline Casts Present /lpf (None Presnt) A 04/24/24 18:10 Urine Osmolality 298 mOsm/kg (500-800) L 04/24/24 18:10 Ur Random Creatinine 89.4 mg/dl 04/26/24 Unknown Ur Random Sodium 23 mmol/L 04/26/24 Unknown Impressions Chest X-Ray 04/24/24 12:34 XR chest 1V not portable HISTORY: 74 years-old Female weakness COMPARISON: 03/28/2024 TECHNIQUE: PA view of the chest FINDINGS: Numerous chronic right rib fracture deformities. Heart size is within normal limits. The lungs appear clear. No pneumothorax, pleural effusion or pulmonary edema. Chronic interstitial coarsening at the lung bases. Partially imaged scoliotic curvature of the lumbar spine. IMPRESSION: No acute process of the chest. ACT 112: Negative or not required by law. The above report was generated using voice recognition software. It may contain grammatical, syntax or spelling errors. Electronically signed by: Addison Finney M.D. 04/24/2024 1:45 PM Renal Ultrasound 04/25/24 07:50 RENAL ULTRASOUND HISTORY: Acute kidney injury elva COMPARISON: CT abdomen and pelvis 03/29/2024 FINDINGS: Right kidney: 10.1 cm. No hydronephrosis. The subcentimeter cysts of the right kidney seen on prior CT are not visualized by ultrasound. Normal corticomedullary differentiation and cortical thickness. Left kidney: 10.3 cm. No hydronephrosis. Normal corticomedullary differentiation and cortical thickness. Bladder: No bladder wall thickening. The bilateral ureteral jets were identified. Hepatic steatosis redemonstrated. IMPRESSION: Unremarkable renal ultrasound without hydronephrosis. ACT 112: Negative or not required by law. Electronically signed by: Addison Finney M.D. 04/25/2024 10:46 AM Ordered Studies 04/25/24 07:50 US Renal Bladder [US renal/blad retro comp] Routine Hospital Course (1) Acute hyponatremia: (2) ELVA (acute kidney injury): (3) Weakness: (4) Alcoholic cirrhosis of liver: (5) Hypertension: (6) Hyperlipidemia: Plan Patient is a 74 yr female with PMH of alcoholic cirrhosis, hypertension, hyperlipidemia, hypothyroidism and other medical problems listed below who presents from home with confusion and weakness x 1 week and was found to have hyponatremia and ELVA. Acute Kidney Injury likely prerenal Hyponatremia H/O cirrhosis, previously on HCTZ which was discontinued --Renal USD:Unremarkable renal ultrasound without hydronephrosis. 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, still drinking 4+ glasses of wine nightly per sister at bedside Continue lactulose Started on rifaximin Resumed diuretic as above Need outpatient EGD for surveillance of varices Needs follow-up with GI on discharge Counseled to quit drinking Vaginal bleeding Developed severe anemia requiring 5u prbcs when admitted in Mar 2024 S/p D&C with myomectomy Following with [facility] ob[facility]yn Currently denies any bleeding issues Monitor CBC Advised to follow-up with CREPE SOLE SCOURER as outpatient Hypothyroidism Continue recently started levothyroxine F/u for outpatient TFTs Weight loss Has reportedly lost 15-20# since last hospitalization Poor diet per sister, chronic etoh use Soil Technologist consulted for recs DVT Px: SCDs for now Code status: FULL CODE Disposition Rehab as able Total Time Total Time Spent Total Time Spent (In Minutes): 46 minutes Discharge Plan Discharge Items Patient Disposition: Transfer Longterm Fac Reason For Visit: HYPONATREMIA, ELVA Discharge Diagnosis: Acute Kidney Injury Chronic hyponatremia Alcoholic cirrhosis Transient vaginal bleeding H/O D&C with myomectomy Hypothyroidism Alcoholic cirrhosis Activity: Per Instructions section Exercise/Sports: Gradually increase as tolerated Non-emergency contact: Primary Care Provider, Hat Finishing Materials Preparer, Filtration Operator and Clay Mixer Call non-emergency contact if: you have any medication questions, your symptoms worsen, your pain is concerning for you and you have a fever Follow-up/Referrals: Kenny Pacheco, [Primary Care Provider] - Diet: Heart Healthy Addtl Attending Provider Instructions: Follow-up with your primary care physician in 1 week upon discharge from rehab facility Follow-up with your investigative analyst in 3 to 4 weeks as recommended Follow-up with your cable installer repairer for further management of cirrhosis/portal hypertension and possible EGD for variceal surveillance as recommended Follow-up with your [facility]PE SOLE SCOURER for vaginal bleed as recommended --Your Bumex dose is decreased to 1 mg daily -Hold taking Aldactone for now. Further recommendations to be determined by your physician as outpatient - You are started on rifaximin, lactulose to help with cirrhosis as recommended by your cable installer repairer -You can titrate lactulose to have 2-3 good bowel movements per day Seek immediate medical attention if your symptoms reoccur or worsen Please take all medications as instructed on discharge list below. Please call if you have any questions or problems. You can reach a [facility] hospitalist on duty at [facility] 24 hours a day by calling [phone] Pending Studies at Discharge: No Stand-Alone Forms: My [facility] Skilled Items Patient informed of condition?: Yes DNR: No Discharge Level of Care: Skilled Communicable Disease: No Discharge Prognosis: Stable Lines: None Urinary Catheter: No Medications and DC Order Prescriptions: New Xifaxan 550 mg Tablet 550 mg PO BID Qty: 60 1RF bumetanide 1 mg Tablet 1 mg PO QAM Qty: 30 1RF lactulose 20 gram/30 mL Solution 20 g PO TID Qty: 1200 0RF Continued simvastatin 40 mg Tablet 40 mg PO QPM Qty: 0 Rx Instructions: last filled 11/02 90 day supply gabapentin 300 mg capsule 300 mg PO HS Qty: 30 1RF magnesium chloride [Mag 64] 64 mg Tablet,Delayed Release (Dr/Ec) 128 mg PO BID Qty: 60 0RF calcium carbonate-vitamin D3 [Calcium 500 + D] 500 mg-10 mcg (400 unit) tablet 1 tab PO BID Qty: 60 0RF Advanced Probiotic 625 mg (10 billion cell) Capsule 1 cap PO DAILY Qty: 30 0RF levothyroxine [Synthroid] 25 mcg tablet 25 mcg PO DAILY Qty: 30 0RF Held spironolactone 100 mg Tablet 100 mg PO BID 30 Days Qty: 60 0RF Hold Instructions: Until further recommendations by your physician Discontinued bumetanide 2 mg tablet 2 mg PO BID Qty: 60 0RF Discharge Orders: Discharge Order (Routine); Ordered 04/27/24 Ordered By: Jayy Hernandez Admission Data Admit Date/Time: 04/24/24 17:00 Attending Provider: Jayy Hernandez Admit Provider: Angely Rosado Primary Care Provider: Kenny Pacheco Other Providers: Angely Rosado; Cameron Seals I; Nagi Uribe; [facility]; Devan Bailey [facility]; [place]
[2024-04-27 12:46] VITALS: PULSE 82
== END 2024-04-27 13:28 | DRG 682 ==
LOC: ED 12:21 → SUATTDRO 17:00 → 4W 17:00